=== PATIENT | male | born 1940 | race Caucasian/White ===

== ENCOUNTER 2019-11-23 15:23 | Emergency (ER) | payer OTHER, SELFPAY ==
[2019-11-23 15:24] VITALS: BP 151/94; PULSE 82; RESP 20; TEMP 36.8; O2SAT 97
--- NOTE | 2019-11-23 15:50 | ED.WOUNDLAC ---
HPI - Wound/Laceration General Chief Complaint: Wound/Laceration Stated Complaint: FINGER LAC Time Seen by Provider: 11/23/19 15:32 Source: patient Mode of arrival: ambulatory Limitations: no limitations History of Present Illness HPI narrative: This is a 78-year-old male that presents the emergency department for left middle finger laceration sustained just prior to arrival. Patient reports he accidentally cut the finger with a box maker paperboard. Reports he was having trouble getting the bleeding to stop. Denies decreased range of motion or numbness. Related Data Home Medications Medication Instructions Recorded Confirmed ascorbate calcium (vitamin C) 500 500 mg PO DAILY 08/06/19 mg tablet blood sugar diagnostic #10 each 08/06/19 ergocalciferol (vitamin D2) 1,250 50,000 unit PO WEEKLY 08/06/19 mcg (50,000 unit) capsule metoprolol succinate 25 mg 25 mg PO DAILY 08/06/19 tablet,extended release 24 hr mirabegron 25 mg tablet,extended 25 mg PO DAILY 08/06/19 release 24 hr omeprazole 40 mg capsule,delayed 40 mg PO DAILY 08/06/19 release amlodipine 5 mg PO DAILY 11/23/19 metoprolol succinate [Toprol XL] PO 11/23/19 Allergies Allergy/AdvReac Type Severity Reaction Status Date / Time Sulfa (Sulfonamide Allergy Unknown Vomiting Verified 11/23/19 15:32 Antibiotics) Review of Systems Review of Systems: Narrative: CONSTITUTIONAL: Denies fever SKIN: Reports laceration MUSCULOSKELETAL: Denies joint pain NEUROLOGIC: Denies numbness All systems reviewed & are unremarkable except as noted in HPI and below PMFSH Past Medical History Medical History (Updated 11/23/19 @ 15:54 by Do Kline PA-C) Dizziness Elevated TSH [place] Thrombocytopenia Family History Family History (Updated 02/26/14 @ 07:13 by DOCTOR UNKNOWN) Mother Family history of lung cancer 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 Smoking status: Former smoker Smoking end date: 07/02/79 Alcohol intake: never Exam Narrative: Exam Narrative: GENERAL: Well-appearing, well-nourished, and in no acute distress. HEAD: Normocephalic, atraumatic. EYES: EOMI. EXTREMITIES: Normal range of motion. No edema or obvious deformity. Left third finger dorsal surface of the distal phalanx with small (0.5cm) superficial laceration with bleeding controlled SKIN: Warm, dry, no rash. NEURO: No focal deficits. Alert and oriented x3. PSYCH: Normal mood and affect Course Vital Signs Vital signs: Vital Signs Temperature 98.2 F 11/23/19 15:24 Pulse Rate 82 11/23/19 15:24 Respiratory Rate 20 11/23/19 15:24 Blood Pressure 151/94 H 11/23/19 15:24 Pulse Oximetry 97 11/23/19 15:24 Temperature 98.2 F 11/23/19 15:24 Pulse Rate 82 11/23/19 15:24 Respiratory Rate 20 11/23/19 15:24 Blood Pressure 151/94 H 11/23/19 15:24 Pulse Oximetry 97 11/23/19 15:24 MDM - Wound/Laceration MDM Narrative Medical decision making narrative: Patient presents to the emergency department for laceration to the left third finger sustained just prior to arrival. Bleeding is under control. Laceration is very superficial and does not need any suturing. Patient was updated on tetanus. He was instructed on wound care. He is to follow-up with primary care doctor. He was given warnings to return the ER Critical Care Time Critical Care Time Critical Care Time: No Discharge Plan Discharge Clinical Impression: Laceration Patient Disposition: Home, Self-Care Condition: Stable Instructions: Laceration (ED) Additional Instructions: Return to the emergency department if you experience fever, redness and swelling of your wound, abnormal drainage from your wound, or any other symptoms that are concerning to you Clean the area with mild soap and water. Apply antibiotic ointment daily. Follow-up with your primary care doctor Prescriptions: No Action ergocalciferol (vitamin D2) [Vitamin D2] 1,250 mcg (50,000 unit) capsule
[2019-11-23] MEDS: TETANUS,DIPHTHERIA,AC PERTUSSIS ADULT (0.5 ML) BOOSTRIX IM (15:53)
== END 2019-11-23 16:06 | disposition home or self-care (01) ==
PROVIDERS: Emergency Provider Emergency Medicine; PCP Family Medicine
DX: S61.213A Laceration without foreign body of left middle finger without damage to nail, initial encounter (principal); Z87.891 Personal history of nicotine dependence; Z23 Encounter for immunization; W27.0XXA Contact with workbench tool, initial encounter
CPT/HCPCS: 90471; 90715; 99282

== ENCOUNTER 2020-07-27 17:38 | Emergency (ER) | payer OTHER, SELFPAY ==
--- NOTE | ~2020-07-27 | CT_ITS ---
EXAMINATION: CTA chest PE abdomen pel DATE: 07/27/2020 20:42 INDICATION: Shortness of breath. Abdominal pain, diarrhea. TECHNIQUE: Computed tomography (CT) of the chest and abdomen was performed with 100 cc Omnipaque 350 intravenous contrast. Automated exposure control and iterative reconstruction technique were employed . Exam dose: 2105.84 mGy-cm total exam DLP. COMPARISON: 07/27/2020 portable AP chest 04/10/2018 CT abdomen pelvis FINDINGS: There is diagnostic contrast enhancement of pulmonary arteries and no evidence of pulmonary embolism. No thoracic aortic aneurysm. No hilar or mediastinal mass lesion or lymphadenopathy. Cardiomegaly. No pericardial or pleural effusion. Patchy bilateral predominantly lower lobe and lingular basilar infiltrate and/or atelectasis. No hepatic, splenic, pancreatic, adrenal space-occupying mass lesion is evident. The gallbladder is p resent. Ultrasound would be more sensitive for detection of gallstones. No gallbladder wall thickenin g or pericholecystic fluid or fat stranding is present. No bile duct or pancreatic duct dilatation. T here are pancreatic calcifications, consistent with chronic pancreatitis. Bilateral renal cysts, largest on the left, measuring up to 7.4 cm approximately. 4.5 mm nonobstructing right renal calculus. 4.7 mm nonobstructing left renal calculus. 6.6 mm left re nal nonobstructing calculus. At least several additional smaller left nonobstructing renal calculi ar e noted. Approximately 3.5 mm distal left ureteral calculus without hydroureteronephrosis. No right ureteral c alculus or right-sided hydroureteronephrosis. The urinary bladder is unremarkable. There is atherosclerotic calcification of the abdominal aorta, celiac, superior mesenteric and renal arteries as well as iliac arteries. No abdominal aortic aneurysm. No intraperitoneal or retroperitone al or pelvic mass lesion or adenopathy or ascites. No bowel obstruction is evident. Normal appendix. No intraperitoneal free air. Small fat-containing inguinal hernias. Diffuse osteopenia. Bilateral hip osteoarthritis. Multilevel degenerative disease of the lumbar and lumbosacral spine. 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 Severe degenerative disc disease in the lower cervical spine. Thoracic kyphosis. Postoperative change from prostatectomy and bilateral pelvic sidewall lymph node resection. IMPRESSION: No evidence of pulmonary embolism Patchy bilateral lower lobe and lingular infiltrate and/or atelectasis Chronic pancreatitis Bilateral renal cysts 3.5 mm distal left ureteral calculus without significant hydroureteronephrosis Bilateral nonobstructive nephrolithiasis Status post prostatectomy and bilateral pelvic sidewall lymph node resection Reviewed, dictated and finalized at [facility]. Reviewed, dictated and finalized at [facility]. CABINETMAKER
--- NOTE | ~2020-07-27 | XR_ITS ---
XR chest 1V portable DATE: 07/27/2020 18:19 INDICATION: Fever, body aches. Dizziness. Falls. TECHNIQUE: Portable AP chest on 07/27/2020 at 1818 hours COMPARISON: 03/24/2019 portable AP chest at 1412 hours FINDINGS: Cardiomegaly, pulmonary vascular congestion and redistribution. There is prominence of the minor fissure aortic arch calcification. Consistent with subpleural edema. There are bilateral central and basilar infiltrate and/or atelectasis. Lumbar edema is suspected. Right glenohumeral joint replacement. Severe osteoarthritis of the left humeral joint. Diffuse osteop enia. IMPRESSION: Congestive heart failure Reviewed, dictated and finalized at location [facility]. 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
[2020-07-27 17:40] VITALS: BP 169/73; PULSE 120; RESP 20; TEMP 37.5; O2SAT 94
--- NOTE | 2020-07-27 18:04 | ECG_ITS ---
Measurements Intervals [place] Rate: 126 P: IN: 0 QRS: 3 QRSD: 104 T: 158 QT: 277 QTc: 401 Interpretive Statements ATRIAL FIBRILLATION WITH RAPID VENTRICULAR RESPONSE DELAYED PRECORDIAL R/S TRANSITION BORDERLINE ST-T WAVE ABNORMALITY- DIFFUSE LEADS BASELINE ARTIFACT- I, II, III, AVR, AVL, AVF, V1-V3 ABNORMAL ECG Electronically Signed On 07-27-2020 19:22:02 NURSE RN BSN by Jose Myers D.O.
[2020-07-27 18:08] VITALS: BP 137/79; PULSE 131; RESP 33; O2SAT 92
--- NOTE | 2020-07-27 18:17 | ED.GENADULT ---
HPI - General Adult General Chief complaint: Fever Stated complaint: fever, vomiting, diarrhea Time Seen by Provider: 07/27/20 17:57 Source: patient History of Present Illness HPI narrative: Patient is a 79 y/o male complaining of fever up to 101 since yesterday. He states that he took Tylenol, which helps with his fever. He has some cough, nausea and diarrhea. He does not have SOB. Related Data Home Medications Medication Instructions Recorded Confirmed ascorbate calcium (vitamin C) 500 500 mg PO DAILY 08/06/19 03/03/20 mg tablet blood sugar diagnostic #10 each 08/06/19 03/03/20 ergocalciferol (vitamin D2) 1,250 50,000 unit PO WEEKLY 08/06/19 03/03/20 mcg (50,000 unit) capsule mirabegron 25 mg tablet,extended 25 mg PO DAILY 08/06/19 03/03/20 release 24 hr omeprazole 40 mg capsule,delayed 40 mg PO DAILY 08/06/19 03/03/20 release metoprolol succinate [Toprol XL] PO 11/23/19 03/03/20 Allergies Allergy/AdvReac Type Severity Reaction Status Date / Time Sulfa (Sulfonamide Allergy Unknown Vomiting Verified 07/27/20 18:07 Antibiotics) Review of Systems Constitutional: Constitutional: Denies chills, Reports fever(s), Denies headache(s) and Denies weakness Eyes: Eyes: Denies blurry vision ENT: Denies headache(s) and Denies neck pain Cardiovascular: Cardiovascular: Denies chest pain and Denies dyspnea Respiratory: Respiratory: Reports cough and Denies dyspnea Gastrointestinal: Gastrointestinal: Denies abdominal pain, Reports diarrhea, Reports nausea and Denies vomiting Genitourinary: Genitourinary: Denies hematuria and Denies dysuria Musculoskeletal: Musculoskeletal: Denies back pain and Denies neck pain Neurologic: Denies headache(s) and Denies weakness PMFSH Past Medical History Medical History (Updated 07/28/20 @ 00:09 by Suasn Serrato MD) Dizziness Elevated TSH [place] Thrombocytopenia Family History Family History Mother Family history of lung cancer 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: Smoking status: Former smoker Tobacco type: cigarettes Second hand tobacco smoke exposure: No Smoking end date: 07/02/79 Alcohol intake: never Substance use: never Substance use type: does not use Gender identity (if verbalized by the patient): Male Exam Const: General: acute distress and ill appearing Nutritional Appearance: thin Orientation/consciousness: oriented to person, oriented to place, oriented to time and patient oriented x3 HENMT: Head: normocephalic Ears: external ears normal General nose exam: Normal external nose present Eyes: General: appearance normal, both eyes and all related structures Conjunctivae: conjunctivae normal Neck: Neck: normal visual inspection and full ROM Chest: Chest palpation & inspection: normal inspection of the chest and no tenderness Resp: Effort & Inspection: normal respiratory effort Auscultation: clear to auscultation bilaterally Cardio: Rate: tachycardic Rhythm: regular rhythm GI: GI Palp: No abdominal tenderness and Yes Soft to palpation Skin: General skin exam: normal color and turgor normal Neuro: General: oriented to person, oriented to place, oriented to time and patient oriented x3 Cognition (Neuro): normal cognition Extrem: General: normal to inspection, full ROM and no pedal edema Psych: Appearance: grossly normal Mental Status: mental status grossly normal Affect: normal affect Course Reevaluation(s) Reevaluation #1: Rechecked. Advised patient to be admitted for observation. Patient declines and wants to leave A. He is awake, alert and competent to make decision for himself. Date: 07/27/20 Time: 23:53 Vital Signs Vital signs: Vital Signs Temperature 37.5 C 07/27/20 17:40 Pulse Rate 120 H 07/27/20 17:40 Respiratory Rate 20 07/27/20 17:40 Blood Pressure 169/73 H 07/27
[2020-07-27 18:18] LABS: Hematocrit 44.7 % (42.0-52.0); Hemoglobin 15.3 g/dL (14.0-18.0); Mean Corpuscular HGB Conc 34.2 g/dl (32-36); Mean Corpuscular Hemoglobin 33.3 pg (26-34); Mean Corpuscular Volume 97.2 fl (80-100); Mean Platelet Volume 12.3 fl (7.4-10.4); Platelet Count Result 115 k/mm3 (150-375); Red Cell Distribution Width 14.4 % (11.5-14.5); White Blood Count 17.1 K/mm3 (4.5-10.0)
[2020-07-27 18:30] LABS: Alanine Aminotransferase 22 U/L (4-50); Albumin Level 4.1 g/dL (3.5-5.1); Alkaline Phosphatase 101 U/L (38-126); Anion Gap 8 mmol/L (8-16); Aspartate Amino Transferase 28 U/L (17-59); Bilirubin,Total 2.4 mg/dL (0.2-1.3); Blood Urea Nitrogen 17 mg/dL (9-20); Calcium 8.6 mg/dL (8.4-10.2); Carbon Dioxide 27 mmol/L (22-30); Chloride 101 mmol/L (98-107); Estimated CRCL calculation 84 ml/min; Estimated Glomerular Filt Rate > 60; Glucose 117 mg/dL (75-110); Lactic Acid Reflex 2.2 mmol/L (0.7-2.1); Sodium 136 mmol/L (137-145)
[2020-07-27 18:42] LABS: Band Neutrophils Percent 12 % (0-6); Lymphocytes Absolute Manual 0.34 K/mm3 (1.1-4.5); Monocytes Absolute Manual 0.68 K/mm3 (0.1-0.90); Monocytes Percent Manual 4 % (3-9); Neutrophils Absolute Manual 16.07 K/mm3 (1.3-6.7); Neutrophils Percent Manual 82 % (46-73); Platelet Estimate Decreased (Adequate); Total Cells Counted 100
--- NOTE | 2020-07-27 19:00 | PC.NURSE ---
Assumed care of pt. at this time. report from MARQUEZ Brewer
[2020-07-27 19:09] LABS: NT Pro B Type Natriuretic Pept 1370 PG/ML (5-100)
[2020-07-27 19:54] LABS: D Dimer 0.51 ug/mL (<0.48)
[2020-07-27 20:10] LABS: Add Urine Microscopic? YES; Appearance Urine Clear (Clear); Bilirubin Urine Negative (Negative); Blood Urine 1+ (Negative); Color Urine Yellow (Yellow); Glucose Urine UA Negative (Negative); Ketones Urine Negative (Negative); Leukocyte Esterase Ur Negative LEU/UL (Negative); Mucus Urine Rare /lpf; Nitrate Urine Negative (Negative); Protein Urine 2+ mg/dL (Negative); Specific Grav Ur 1.021 (1.001-1.035); Squamous Epithelial Cell Urine Rare /hpf (Few); Urobilinogen Urine Negative mg/dL (<2.0); WBC Urine 0-3 /hpf
[2020-07-27 20:40] VITALS: BP 149/96; PULSE 124; RESP 22; TEMP 36.8; O2SAT 100
[2020-07-27 21:16] LABS: Reflex Lactic Acid Yes or No Add Lactic
[2020-07-27 22:06] LABS: Lactic Acid 2.7 mmol/L (0.7-2.1)
[2020-07-27] MEDS: POTASSIUM CHLORIDE 20 MEQ TABLET PO (22:10)
[2020-07-27 22:17] VITALS: BP 130/94; PULSE 104; RESP 31; O2SAT 94
--- NOTE | 2020-07-27 23:04 | PC.NURSE ---
Updated Pt.'s [phone]
[2020-07-27 23:47] VITALS: BP 158/96; PULSE 105; RESP 14; O2SAT 94
[2020-07-28 14:05] LABS: SARS-CoV-2 RNA PCR Negative
== END 2020-07-27 23:55 | disposition left against medical advice (07) ==
PROVIDERS: Emergency Provider Emergency Medicine; PCP Family Medicine
DX: R50.9 Fever, unspecified (principal); R19.7 Diarrhea, unspecified; E87.2 Acidosis; Z20.822 Contact with and (suspected) exposure to COVID-19; Z87.891 Personal history of nicotine dependence; I48.91 Unspecified atrial fibrillation; R94.31 Abnormal electrocardiogram [ECG] [EKG]
CPT/HCPCS: 36415; 71045; 71275; 74177; 80053; 81001; 83605; 83880; 85025; 85380; 87040; 87147; 87186; 93005; 96360; 96361; 99284; A9270; C9803; Q9967; U0003; U0005

== ENCOUNTER 2020-07-28 17:20 | Inpatient (IN) | payer OTHER, SELFPAY ==
[2020-07-28] VITALS (18 sets, daily range): BP systolic 85–159; BP diastolic 64–131; PULSE 77–97; RESP 14–31; TEMP 36.2–36.8; O2SAT 87–100
--- NOTE | ~2020-07-28 | XR_ITS ---
EXAMINATION: XR abdomen/kub 1V DATE: 07/29/2020 08:25 INDICATION: Left ureteral stone. TECHNIQUE: A supine view of the abdomen on 2 radiographs was obtained. COMPARISON: CT abdomen and pelvis 07/28/2020 FINDINGS: There are no dilated loops of bowel. There are surgical clips in the pelvis. The kidneys ar e obscured by bowel. There is a 4 mm stone in right kidney. There is a 3 mm stone in left kidney. The re are vascular calcifications in the pelvis. There is a 3 mm stone in distal left ureter. IMPRESSION: 1. 3 mm stone in distal left ureter. 2. Bilateral kidney stones. Reviewed, dictated and finalized at location [facility]. ESS TIER
--- NOTE | ~2020-07-28 | CT_ITS ---
EXAMINATION: CT abdomen pelvis wo con DATE: 07/28/2020 18:25 INDICATION: Kidney stone TECHNIQUE: Computed tomography (CT) of the abdomen and pelvis was performed without intravenous contr ast. Automated exposure control and iterative reconstruction technique were employed. Exam dose: 105 2.36 mGy-cm total exam DLP. COMPARISON: 07/27/2020 CTA chest abdomen pelvis FINDINGS: There is infiltrate/atelectasis in the lung bases, is prominent at the left lower lobe. There is cardiomegaly. No pericardial or pleural effusion. Since 07/27/2020 there is pericholecystic fluid and/or stranding. Clinical correlation is advised. No bile duct or pancreatic duct dilatation. There are numerous pancreatic calcifications consistent with chronic pancreatitis. There is surface nodularity of the liver suggesting cirrhosis. Normal splenic size. Normal morphology of the adrenal glands. Bilateral renal cysts are demonstrated to better advantage on the 07/27/2020 CT abdomen pelvis examina tion with IV contrast material. Again noted is an approximately 4.5 mm right renal nonobstructing calculus and multiple nonobstructin g left renal calculi. No significant change in position of previously reported 3.5 mm There is interval mild free fluid collection in the dependent pelvis since 07/27/2020. Distal left ure teral calculus since 07/27/2020. Abdominal and iliac arterial calcifications as well as renal artery and celiac and superior mesenteri c artery calcification; no abdominal aortic aneurysm. Status post prostatectomy and bilateral pelvic sidewall lymph node resection. Fat-containing umbilical hernia. Small bilateral fat-containing inguinal hernias. IMPRESSION: No significant change in position of 3.5 mm left ureteral calculus and minimal if any le ft hydroureteronephrosis since 07/27/2020 Interval pericholecystic fluid and/or fat stranding and mild free fluid collection in the pelvis Chronic pancreatitis Cirrhosis of the liver Bilateral nonobstructive nephrolithiasis Bilateral renal cysts Cardiomegaly Bibasilar infiltrate and/atelectasis, most prominent in the left lower lobe Reviewed, dictated and finalized at [facility]. Reviewed, dictated and finalized at [facility]. 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
--- NOTE | ~2020-07-28 | XR_ITS ---
EXAMINATION: XR abdomen/kub 1V EXAM DATE: 07/30/2020 06:31 INDICATION: Left ureteral stone position. TECHNIQUE: Frontal projection(s) of the abdomen for interpretation. Comparison is made to prior exami nation from 07/29/2020. FINDINGS: Previously indicated and suspected left distal ureteral stone appears unchanged compared to yesterday. Surgical clips from pelvic lymph node dissection. There is advanced lumbar spondylosis. N onobstructive bowel gas pattern. IMPRESSION: Small left pelvic calcification unchanged could be ureteral stone. Reviewed, dictated and finalized at location [facility]. UCT SUPPORT ENGINEER
--- NOTE | ~2020-07-28 | XR_ITS ---
EXAMINATION: XR fluoroscopy no charge EXAM DATE: 07/30/2020 08:42 INDICATION: Left ureteral stone extraction. TECHNIQUE: Fluoroscopy used during XR fluoroscopy no charge performed by Dr. Alverto Boston MD. The DAP for this procedure was 351 radcm2 FINDINGS: Left ureter was cannulated, stone extraction. Correlate with procedure note. IMPRESSION: Fluoroscopy used during left ureteral stone extraction. Reviewed, dictated and finalized at location [facility]. S SUPPORT CONSULTANT
--- NOTE | 2020-07-28 17:37 | ECG_ITS ---
Measurements Intervals [place] Rate: 89 P: NE: 0 QRS: -8 QRSD: 89 T: -24 QT: 360 QTc: 438 Interpretive Statements ATRIAL FIBRILLATION CONSIDER INFERIOR INFARCT, AGE INDETERMINATE BASELINE ARTIFACT- I, II, AVR, AVL, AVF ABNORMAL ECG Electronically Signed On 07-28-2020 18:22:34 PATIENT PARTNER by Jose Myers D.O.
[2020-07-28 17:57] LABS: Basophils Percent Auto 0.3 % (0.2-1.2); Hematocrit 44.1 % (42.0-52.0); Hemoglobin 14.9 g/dL (14.0-18.0); Immature Granulocyte Absolute 0.06 K/mm3 (0.00-0.031); Immature Granulocyte Percent A 0.5 % (0-0.5); Lymphocytes Absolute Auto 0.63 K/mm3 (0.9-3.2); Lymphocytes Percent Auto 5.4 % (18.3-44.2); Mean Corpuscular HGB Conc 33.8 g/dl (32-36); Mean Corpuscular Hemoglobin 32.9 pg (26-34); Mean Corpuscular Volume 97.4 fl (80-100); Mean Platelet Volume 12.8 fl (7.4-10.4); Monocytes Absolute Auto 0.4 K/mm3 (0.1-0.6); Monocytes Percent Auto 3.3 % (2.6-8.5); Neutrophils Absolute Auto 10.6 K/mm3 (1.3-6.7); Neutrophils Percent Auto 90.5 % (45.5-73.1); Platelet Count Result 91 k/mm3 (150-375); Red Blood Count 4.53 M/mm3 (4.6-6.20); Red Cell Distribution Width 14.6 % (11.5-14.5); White Blood Count 11.8 K/mm3 (4.5-10.0)
[2020-07-28 18:08] LABS: INR 2.7; Prothrombin Time 29.2 Seconds (11.1-14.7)
[2020-07-28 18:09] LABS: Partial Thromboplastin Time 55.2 SECONDS (22.3-36.8)
[2020-07-28 18:14] LABS: Lactic Acid Reflex 1.4 mmol/L (0.7-2.1)
[2020-07-28 18:16] LABS: Alanine Aminotransferase 30 U/L (4-50); Albumin Level 3.9 g/dL (3.5-5.1); Alkaline Phosphatase 71 U/L (38-126); Anion Gap 4 mmol/L (8-16); Aspartate Amino Transferase 78 U/L (17-59); Bilirubin,Total 2.8 mg/dL (0.2-1.3); Blood Urea Nitrogen 21 mg/dL (9-20); Calcium 8.4 mg/dL (8.4-10.2); Carbon Dioxide 29 mmol/L (22-30); Chloride 102 mmol/L (98-107); Estimated CRCL calculation 75 ml/min; Estimated Glomerular Filt Rate > 60; Glucose 121 mg/dL (75-110); Lipase 26 U/L (23-300); Magnesium 1.4 mg/dL (1.6-2.3); Phosphorus 2.2 mg/dL (2.5-4.5); Potassium 3.7 mmol/L (3.4-5.0); Sodium 135 mmol/L (137-145)
--- NOTE | 2020-07-28 18:25 | ED.GENADULT ---
HPI - General Adult General Chief complaint: Recheck/Abnormal Lab/Rx <Maxwell Burns PA-C - Last Filed: 07/28/20 19:46> Stated complaint: abnormal labs per pcp <Maxwell Burns PA-C - Last Filed: 07/28/20 19:46> Time Seen by Provider: 07/28/20 17:29 <Maxwell Burns PA-C - Last Filed: 07/28/20 19:46> Source: patient, family, RN notes reviewed and old records reviewed <GONZÁLEZ Cedeno Last Filed: 07/28/20 19:46> Mode of arrival: ambulatory <GONZÁLEZ Cedeno Last Filed: 07/28/20 19:46> Limitations: no limitations <Maxwell Burns PA-C - Last Filed: 07/28/20 19:46> History of Present Illness HPI narrative: Patient is an 79-year-old male who presents to emergency department for evaluation of abnormal labs patient had had nausea vomiting diarrhea was seen in the emergency department yesterday evaluated advised to stay secondary to potential sepsis and other lab abnormalities patient notes that he decided to return per the request of his primary care doctor. Patient notes that the vomiting diarrhea have resolved he is no longer having fever. Patient on arrival denies any pain or other complaints. Patient had CTA of the chest abdomen pelvis yesterday coupled with blood work. <Maxwell Burns PA-C - Last Filed: 07/28/20 19:46> Related Data Home medications: Home Medications Medication Instructions Recorded Confirmed ascorbate calcium (vitamin C) 500 500 mg PO DAILY 08/06/19 07/28/20 mg tablet blood sugar diagnostic #10 each 08/06/19 07/28/20 ergocalciferol (vitamin D2) 1,250 50,000 unit PO DAILY 08/06/19 07/28/20 mcg (50,000 unit) capsule metoprolol succinate [Toprol XL] 100 mg PO DAILY 11/23/19 07/28/20 losartan-hydrochlorothiazide 1 tablet PO DAILY 07/28/20 07/28/20 metformin 500 mg PO DAILY 07/28/20 07/28/20 <GONZÁLEZ Cedeno Last Filed: 07/28/20 19:46> Allergies/adverse reactions: Allergies Allergy/AdvReac Type Severity Reaction Status Date / Time Sulfa (Sulfonamide Allergy Unknown Vomiting Verified 07/28/20 22:28 Antibiotics) <Maxwell Burns PA-C - Last Filed: 07/28/20 19:46> Review of Systems Review of Systems: All systems reviewed & are unremarkable except as noted in HPI and below <Maxwell Burns PA-C - Last Filed: 07/28/20 19:46> [facility] Past Medical History Medical History: Medical History (Updated 07/28/20 @ 19:45 by Maxwell Burns PA-C) Dizziness Elevated TSH [place] Thrombocytopenia Type 2 diabetes mellitus without complications Unspecified atrial fibrillation <Maxwell Burns PA-C - Last Filed: 07/28/20 19:46> Family History Family History: Family History (Updated 07/28/20 @ 22:21 by Ines Farley, RN) Mother Family history of lung cancer Sibling Lung cancer <Maxwell Burns PA-C - Last Filed: 07/28/20 19:46> 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: 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 (Updated 07/28/20 @ 22:21 by Ines Farley, RN) 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: Smoking status: Former smoker Tobacco type: cigarettes Second hand tobacco smoke exposure: No Smoking end date: 08/31/87 Alcohol intake: former Substance use: never Substance use type: does not use Living arrangements: with family Occupation/Education: retired Gender identity (if verbalized by the patient): Male Spiritual care concerns: No <Maxwell Burns PA-C - Last Filed: 07/28/20 19:46> Exam Narrative: Exam Narrative: GENERAL: Well-appearing, obese, and in no acute distress. HEAD: Normocephalic, atraumatic. EYES: PERRLA and EOMI. ENT: Nares clear, no rhinorrhea or epistaxis. Mucous membranes moist. NECK: Supple. No adenopathy or masses. No carotid bruits or JVD CHEST: Diminished on auscultation. No respiratory distress. Slight crackles in the lung bases HEART: Irregularly irregular rate and rhythm. No murmur heard. Normal peripheral pulses. ABDOMEN: Soft, nontender, nondistended EXTREMITIE
[2020-07-28 18:27] LABS: CRP 16.8 mg/dL (<1.0); NT Pro B Type Natriuretic Pept 2880 PG/ML (5-100); Troponin I 0.058 ng/mL (0.000-0.034)
[2020-07-28] MEDS: MAGNESIUM SULF 2 GM/WATER 50ML 2 GM/50 ML BAG IVPB (18:50)
[2020-07-28] MEDS: FUROSEMIDE INJ 40 MG/4 ML VIAL IV PUSH (18:50)
[2020-07-28 21:13] LABS: Troponin I 0.038 ng/mL (0.000-0.034)
--- NOTE | 2020-07-28 22:00 | ADMGEN ---
This patient, Todd Roe, was admitted to 3 Medical Room 340-01. Patient/family oriented to hospital policies and general routines including ID bracelet, bed and alarms, visiting hours, pain management, procedures, bathroom and other care routines, personal items, smoking policy, room service/diet, and visiting hours. Information on how to activate the Rapid Response Team has been discussed. Patient/Family are encouraged to report perceived risks to care and to ask questions if they do not understand what they are told or what they should do.
[2020-07-28] MEDS: FAMOTIDINE 20 MG/2 ML VIAL IV PUSH (23:34)
[2020-07-28 23:39] LABS: Glucose Point of Care 161 (65-105)
[2020-07-29] VITALS (10 sets, daily range): BP systolic 129–152; BP diastolic 72–92; PULSE 84–120; RESP 16–18; TEMP 36.2–36.8; O2SAT 91–95
--- NOTE | 2020-07-29 | ECHO_ITS ---
Patient Info Name: Todd Pino Sample Age: 79 years : 1940 Gender: Male Ht: 74 in Wt: 234 lbs BSA: 2.38 m2 HR: 113 bpm BP: 150 / 88 mmHg Heart Rhythm: Atrial Fibrillation Technical Quality: Good Exam Date: 07/29/2020 9:17 AM Exam Location: [facility] Patient Status: Inpatient Admit Date: 07/28/2020 Staff Ordering Physician: Sharan Schulz MD Firer Low Pressure: Asad Garcia, CITLALY, RT Attending Provider: Cristina Bates MD Referring Physician: Jazz FRANK; Exam Type: CA echo dop color flow w con Study Info Indications I48.1 - Persistent atrial fibrillation Complete two-dimensional, color flow and Doppler transthoracic echocardiogram is performed with contrast to opacify the left ventricle and to improve the deliniation of the left ventricle endocardial borders. Summary 1. Left ventricular chamber dimension is normal. 2. Definity contrast administered improved wall motion interpretation. 3. Left ventricular systolic function is normal, estimated at 60-65%. 4. There is mildly increased left ventricular wall thickness. 5. The left ventricular diastolic function is normal. 6. E/e' 7 is not elevated. 7. Atrial fibrillation. 8. Left atrial chamber dimension is severely enlarged. 9. Right atrial chamber dimension is severely enlarged. 10. There is mild aortic valve sclerosis. 11. The mitral valve has mildly calcified annulus. 12. No pulmonary hypertension, estimated pulmonary arterial systolic pressure is 35 mmHg. Left Ventricle Atrial fibrillation. E/e' 7 is not elevated. Definity contrast administered improved wall motion interpretation. Left ventricular chamber dimension is normal. Left ventricular systolic function is normal, estimated at 60-65%. There is mildly increased left ventricular wall thickness. The left ventricular diastolic function is normal. Right Ventricle Right ventricular systolic function is normal with normal TAPSE 1.7 cm. Right ventricular chamber dimension is normal. Left Atria Left atrial chamber dimension is severely enlarged. Right Atria Right atrial chamber dimension is severely enlarged. Aortic Valve The aortic valve is trileaflet. There is mild aortic valve sclerosis. There is no aortic valve stenosis. There is no aortic valve regurgitation. Pulmonic Valve There is no pulmonic regurgitation. Mitral Valve The mitral valve has mildly calcified annulus. There is no mitral valve stenosis. There is no mitral valve regurgitation. Tricuspid Valve There is no tricuspid valve regurgitation. No pulmonary hypertension, estimated pulmonary arterial systolic pressure is 35 mmHg. Pericardium/Pleural There is no pericardial effusion. Inferior Vena Cava Normal inferior vena cava with >50% collapse upon inspiration consistent with normal right atrial pressure, 5 mmHg. Aorta The aortic root size at the sinus of Valsalva is normal. Left Ventricular Outflow Tract Name Value Normal LVOT 2D LVOT Diameter 2.28 cm LVOT Doppler LVOT Peak Velocity 76.64 cm/s LVOT Peak Gradient 2 mmHg LVOT
[2020-07-29 01:07] LABS: Troponin I 0.055 ng/mL (0.000-0.034)
[2020-07-29 06:12] LABS: Basophils Percent Auto 0.2 % (0.2-1.2); Eosinophils Percent Auto 0.1 % (0-4.4); Hemoglobin 14.1 g/dL (14.0-18.0); Immature Granulocyte Absolute 0.05 K/mm3 (0.00-0.031); Immature Granulocyte Percent A 0.6 % (0-0.5); Lymphocytes Absolute Auto 0.52 K/mm3 (0.9-3.2); Lymphocytes Percent Auto 5.9 % (18.3-44.2); Mean Corpuscular HGB Conc 33.6 g/dl (32-36); Mean Corpuscular Hemoglobin 32.6 pg (26-34); Mean Platelet Volume 12.3 fl (7.4-10.4); Monocytes Absolute Auto 0.5 K/mm3 (0.1-0.6); Monocytes Percent Auto 5.1 % (2.6-8.5); Neutrophils Absolute Auto 7.8 K/mm3 (1.3-6.7); Neutrophils Percent Auto 88.1 % (45.5-73.1); Platelet Count Result 91 k/mm3 (150-375); Red Blood Count 4.33 M/mm3 (4.6-6.20); Red Cell Distribution Width 14.7 % (11.5-14.5); White Blood Count 8.8 K/mm3 (4.5-10.0)
[2020-07-29 06:26] LABS: Alanine Aminotransferase 33 U/L (4-50); Albumin Level 3.7 g/dL (3.5-5.1); Alkaline Phosphatase 69 U/L (38-126); Anion Gap 2 mmol/L (8-16); Aspartate Amino Transferase 73 U/L (17-59); Blood Urea Nitrogen 20 mg/dL (9-20); Carbon Dioxide 34 mmol/L (22-30); Chloride 98 mmol/L (98-107); Estimated CRCL calculation 61 ml/min; Estimated Glomerular Filt Rate > 60; Glucose 110 mg/dL (75-110); Lipase 36 U/L (23-300); Potassium 3.4 mmol/L (3.4-5.0); Sodium 134 mmol/L (137-145)
--- NOTE | 2020-07-29 06:48 | WPDURCON ---
Assessment and Plan Assessment and plan (1) Left ureteral calculus: Code(s): N20.1 - Calculus of ureter Status: Acute Assessment and Plan: Small, minimally obstructing/minimally symptomatic left distal ureteral stone. Discussed with pt. - he'd prefer a day to try and pass this. I have him scheduled for 829 morning, if stone hasn't passed and he's medically fit. So, he can eat/drink today. Urology Consult Note HPI Date Seen: 07/29/20 Requesting Physician: Cristina Bates MD Primary Care Provider: Kofi Masterson MD Consult Narrative Narrative: Todd Roe is a 79 year old male who is known to our practice, having undergone a robotic prostatectomy in the remote past by Dr. Sandhu. He has been in the ER at [facility] twice last 36 hours. On the night of 07/27 he presented with reports of fever and diarrhea. Imaging at that time revealed a minimally obstructing 3 mm left distal ureteral calculus. He had a picture of the infection but refused admission and left against medical advice. Then re-presented last night after having been instructed by his primary care physician to back for further evaluation. Throughout this time he has no flank or abdominal pain suggestive of ureteral colic. He has been afebrile throughout this admissionHe has no prior history of urolithiasis. Review of Systems Cardiovascular: Cardiovascular: Denies chest pain, Denies lightheadedness, Denies palpitations and Denies dyspnea Respiratory: Respiratory: Denies dyspnea Gastrointestinal: Gastrointestinal: Denies diarrhea, Denies nausea and Denies vomiting Genitourinary: Genitourinary: Denies hematuria and Denies dysuria Endocrine: Endocrine: Denies palpitations PMFSH Past Medical History Medical History Dizziness Elevated TSH [place] Thrombocytopenia Type 2 diabetes mellitus without complications Unspecified atrial fibrillation Family History Family History Mother Family history of lung cancer Sibling Lung cancer 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: Smoking status: Former smoker Tobacco type: cigarettes Second hand tobacco smoke exposure: No Smoking end date: 08/31/87 Alcohol intake: former Substance use: never Substance use type: does not use Living arrangements: with family Occupation/Education: retired Gender identity (if verbalized by the patient): Male Spiritual care concerns: No Meds Home Medications and Allergies Home Medications Medication Instructions Recorded Confirmed Type ascorbate calcium (vitamin C) 500 500 mg PO DAILY 08/06/19 07/28/20 History mg tablet blood sugar diagnostic #10 each 08/06/19 07/28/20 History ergocalciferol (vitamin D2) 1,250 50,000 unit PO DAILY 08/06/19 07/28/20 History mcg (50,000 unit) capsule metoprolol succinate [Toprol XL] 100 mg PO DAILY 11/23/19 07/28/20 History amlodipine 5 mg tablet 5 mg PO DAILY #90 tablet 07/12/20 07/28/20 Rx warfarin 5 mg tablet 5 mg PO DAILY #90 tablet 07/12/20 07/28/20 Rx losartan-hydrochlorothiazide 1 tablet PO DAILY 07/28/20 07/28/20 History metformin 500 mg PO DAILY 07/28/20 07/28/20 History Allergies Allergy/AdvReac Type Severity Reaction Status Date / Time Sulfa (Sulfonamide Allergy Unknown Vomiting Verified 07/28/20 22:28 Antibiotics) Vital Signs Vital Signs - 24 hr 07/28/20 17:42 07/28/20 18:03 07/28/20 18:16 Temperature 97.2 F L Pulse Rate 87 92 Respiratory Rate 17 28 H Blood Pressure 141/83 H 117/101 H Pulse Oximetry 95 87 L 07/28/20 18:21 07/28/20 18:22 07/28/20 18:29 Temperature Pulse Rate 88 90 Respiratory Rate 20 Blood Pressure Pulse Oximetry 88 L 94 92 07/28/20 18:30 07/28/20 18:45 07/28/20 18:48 Temperature Pulse Rate 97 89 92 Respira
[2020-07-29 07:56] LABS: Glucose Point of Care 101 (65-105)
[2020-07-29] MEDS: POTASSIUM CHLORIDE 20 MEQ TABLET 40 MEQ PO (08:58)
[2020-07-29] MEDS: PERFLUTREN LIPID MICROSPHERES 1.5 ML VIAL DILUTED TO 10 ML TOTAL VOLUME IV PUSH (09:43)
[2020-07-29] MEDS: ASCORBIC ACID 500 MG TABLET PO (09:46)
[2020-07-29] MEDS: FAMOTIDINE 20 MG/2 ML VIAL IV PUSH ×2 (09:46→20:10)
[2020-07-29] MEDS: metFORMIN HCL XR 500 MG TAB.SR.24H PO (09:46)
[2020-07-29] MEDS: METOPROLOL SUCCINATE EXT REL 100 MG TABCR PO (09:47)
[2020-07-29] MEDS: amLODIPine BESYLATE 5 MG TABLET PO (09:49)
[2020-07-29] MEDS: hydroCHLOROthiazide 25 MG TABLET PO (09:50)
[2020-07-29] MEDS: LOSARTAN POTASSIUM 100 MG TABLET PO (09:50)
--- NOTE | 2020-07-29 10:58 | PC.NURSE ---
Addendum entered by Meri Espinoza RN 07/29/20 11:05: Vitamin D3. Original Note: Patient , Joe, on telephone reading from Patient s vitamin D pill bottle. She voiced that he takes vitamin D one pill orally daily, 50 mcg.
[2020-07-29 12:19] LABS: Glucose Point of Care 117 (65-105)
--- NOTE | 2020-07-29 12:33 | PM.IMHP ---
H&P: HPI History of Present Illness Date/Time: 07/29/20 12:33 Chief Complaint: Cough and have normal lab tests Narrative: Date of visit 07/29/20 1030 Todd Roe is a 79 year old male with hypertension, type 2 diabetes, chronic AFib on anticoagulation was originally seen in the emergency room on and encouraged to stay but left against medical advice.. When blood work was seen by primary care physician especially the positive blood cultures she was encouraged to return back to emergency room for evaluation and eventually admitted.. On his 1st presentation on the 19/12 he had nausea some vomiting with diarrhea and fever. Yesterday in ER the GI symptoms had resolved and CTA revealed so pulmonary infiltrates and left mid ureteral stone. He has had kidney stones in the past and has not experienced a pain with of present illness. Has had some cough though not severe Review of Systems Review of Systems: Narrative: Constitutional weight is steady appetite good prior to present illness Eyes no double vision or scotoma Mouth no pharyngitis laryngitis Pulmonary no noticeable increased shortness of breath, just a cough CV heart rate below faster with no murmurs GI diarrhea has subsided no melena or hematochezia stream a little slow Muscle skeletal no particular joint discomfort Integument no skin breakdown rashes Neuropsych no seizures no syncope PMFSH Past Medical History Medical History (Updated 07/29/20 @ 12:50 by Sharan Schulz MD) Dizziness Elevated TSH [place] Thrombocytopenia Type 2 diabetes mellitus without complications Unspecified atrial fibrillation Surgical History Surgical History (Updated 07/29/20 @ 12:43 by Sharan Schulz MD) H/O parathyroidectomy H/O radical prostatectomy History of bilateral knee replacement History of right shoulder replacement Family History Family History Mother Family history of lung cancer Sibling Lung cancer 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 (Updated 07/29/20 @ 12:45 by Sharan Schulz MD) 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: , 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 Smoking status: Former smoker Tobacco type: cigarettes Second hand tobacco smoke exposure: No Smoking end date: 08/31/87 Alcohol intake: former Substance use: never Substance use type: does not use Living arrangements: with family Occupation/Education: retired Gender identity (if verbalized by the patient): Male Spiritual care concerns: No Meds Home Medications and Allergies Home Medications Medication Instructions Recorded Confirmed Type ascorbate calcium (vitamin C) 500 500 mg PO DAILY 08/06/19 07/28/20 History mg tablet blood sugar diagnostic #10 each 08/06/19 07/28/20 History metoprolol succinate [Toprol XL] 100 mg PO DAILY 11/23/19 07/28/20 History amlodipine 5 mg tablet 5 mg PO DAILY #90 tablet 07/12/20 07/28/20 Rx warfarin 5 mg tablet 5 mg PO DAILY #90 tablet 07/12/20 07/28/20 Rx losartan-hydrochlorothiazide 1 tablet PO DAILY 07/28/20 07/28/20 History metformin 500 mg PO DAILY 07/28/20 07/28/20 History Vitamin D3 50 mcg PO DAILY 07/29/20 07/29/20 History cholecalciferol (vitamin D3) 50 mcg PO DAILY 07/29/20 07/29/20 History [Vitamin D3] Allergies Allergy/AdvReac Type Severity Reaction Status Date / Time Sulfa (Sulfonamide Allergy Unknown Vomiting Verified 07/28/20 22:28 Antibiotics) Vital Signs Vital Signs - 24 hr 07/28/20 17:42 07/28/20 18:03 07/28/20 18:16 Temperature 36.2 C L Pulse Rate 87 92 Respiratory Rate 17 28 H Blood Pressure 141/83 H 117/101 H Pulse Oximetry 95 87 L 07/28/20 18:21 07/28/20 18:22 07/28/20 18:29 Temperature Pulse Rate 88 90 Respiratory Rate 20 Blood Pressure Pulse Oximetry 88 L 94 92 07/28/20 18:30 07/28/20 18:45 07/28/20 18:48 Temperature Pulse Rate 97 89 92 Respiratory Rate 26 H 29 H 25 H Blood Pressure 144/101 H 85/64 L Pulse Oxim
--- NOTE | 2020-07-29 14:39 | WPDANESEPPF ---
Anes - Initial Pre Proc Eval Procedure: Operation Date: 07/30/20 08:30 Proposed Procedures p Cystoscopy, Left Ureteroscopy, Stone Extraction(Left) - Alverto Bsoton MD Date/Time: 07/29/20 14:39 Surgeon: Cristina Bates MD Pre Op Diagnosis: elevated troponin, heart failure, pneumonia, Patient Data Age: 79 Gender: M Height: 1.88 m Weight: 106.5 kg Last Vital Signs Temp 36.5 C 07/29/20 13:06 Pulse 104 H 07/29/20 13:06 Resp 18 07/29/20 13:06 BP 152/90 H 07/29/20 13:06 Pulse Ox 95 07/29/20 13:06 Allergies Allergy/AdvReac Type Severity Reaction Status Date / Time Sulfa (Sulfonamide Allergy Unknown Vomiting Verified 07/28/20 22:28 Antibiotics) Home Medications Medication Instructions Recorded Confirmed Type ascorbate calcium (vitamin C) 500 500 mg PO DAILY 08/06/19 07/28/20 History mg tablet blood sugar diagnostic #10 each 08/06/19 07/28/20 History metoprolol succinate [Toprol XL] 100 mg PO DAILY 11/23/19 07/28/20 History amlodipine 5 mg tablet 5 mg PO DAILY #90 tablet 07/12/20 07/28/20 Rx warfarin 5 mg tablet 5 mg PO DAILY #90 tablet 07/12/20 07/28/20 Rx losartan-hydrochlorothiazide 1 tablet PO DAILY 07/28/20 07/28/20 History metformin 500 mg PO DAILY 07/28/20 07/28/20 History Vitamin D3 50 mcg PO DAILY 07/29/20 07/29/20 History cholecalciferol (vitamin D3) 50 mcg PO DAILY 07/29/20 07/29/20 History [Vitamin D3] Laboratory Tests 07/28/20 07/28/20 07/28/20 17:47 17:47 17:47 WBC 11.8 K/mm3 H K/mm3 (4.5-10.0) RBC 4.53 M/mm3 L M/mm3 (4.6-6.20) Hgb 14.9 g/dL g/dL (14.0-18.0) Hct 44.1 % % (42.0-52.0) MCV 97.4 fl fl (80-100) MCH 32.9 pg pg (26-34) MCHC 33.8 g/dl g/dl (32-36) RDW 14.6 % H % (11.5-14.5) Plt Count 91 k/mm3 L k/mm3 (150-375) MPV 12.8 fl H fl (7.4-10.4) Immature Gran % (Auto) 0.5 % % (0-0.5) Neut % (Auto) 90.5 % H % (45.5-73.1) Lymph % (Auto) 5.4 % L % (18.3-44.2) Jay % (Auto) 3.3 % % (2.6-8.5) Eos % (Auto) 0.0 % % (0-4.4) Baso % (Auto) 0.3 % % (0.2-1.2) Lymph # (Auto) 0.63 K/mm3 L K/mm3 (0.9-3.2) Jay # (Auto) 0.4 K/mm3 K/mm3 (0.1-0.6) Eos # (Auto) 0.0 K/mm3 K/mm3 (0-0.3) Baso # (Auto) 0.0 K/mm3 K/mm3 (0.0-0.1) Abs Immat Gran (auto) 0.06 K/mm3 H K/mm3 (0.00-0.031) Absolute Neuts (auto) 10.6 K/mm3 H K/mm3 (1.3-6.7) Absolute Nucleated RBC 0.0 K/mm3 K/mm3 (0.0-0.012) Nucleated RBC % 0.0 % % (0.0-0.2) PT 29.2 Seconds H Seconds (11.1-14.7) INR 2.7 APTT 55.2 SECONDS H SECONDS (22.3-36.8) Sodium 135 mmol/L L mmol/L (137-145) Potassium 3.7 mmol/L mmol/L (3.4-5.0) Chloride 102 mmol/L mmol/L (98-107) Carbon Dioxide 29 mmol/L mmol/L (22-30) Anion Gap 4 mmol/L L mmol/L (8-16) BUN 21 mg/dL H mg/dL (9-20) Creatinine 0.80 mg/dL mg/dL (0.7-1.3) Estim Creat Clear Calc 75 ml/min ml/min Estimated GFR > 60 (59 - ) Glucose 121 mg/dL H mg/dL (75-110) POC Capillary Glucose Lactic Acid Calcium 8.4 mg/dL mg/dL (8.4-10.2) Phosphorus 2.2 mg/dL L mg/dL (2.5-4.5) Magnesium 1.4 mg/dL L mg/dL (1.6-2.3) Total Bilirubin 2.8 mg/dL H mg/dL (0.2-1.3) AST 78 U/L H U/L (17-59) ALT 30 U/L U/L (4-50) Alkaline Phosphatase 71 U/L U/L (38-126) Troponin I 0.058 ng/mL H* ng/mL (0.000-0.034) C-Reactive Protein 16.8 mg/dL H mg/dL (<1.0) NT-Pro-B Natriuret Pep 2880 PG/ML H PG/ML (5-100) Total Protein 7.0 g/dL g/dL (6.3-8.2) Albumin 3.9 g/dL g/dL (3.5-5.1) Lipase 26 U/L U/L (23-300) 07/28/20
[2020-07-29 17:02] LABS: Glucose Point of Care 127 (65-105)
[2020-07-29] MEDS: WARFARIN (*PBKC) 5 MG TABLET PO (17:34)
[2020-07-29 20:17] LABS: Glucose Point of Care 138 (65-105)
[2020-07-30] VITALS (16 sets, daily range): BP systolic 123–148; BP diastolic 77–90; PULSE 67–93; RESP 14–26; TEMP 35.9–37.1; O2SAT 93–98
[2020-07-30 05:35] LABS: Basophils Percent Auto 0.3 % (0.2-1.2); Eosinophils Absolute Auto 0.1 K/mm3 (0-0.3); Eosinophils Percent Auto 1.2 % (0-4.4); Hematocrit 43.9 % (42.0-52.0); Hemoglobin 14.8 g/dL (14.0-18.0); Immature Granulocyte Absolute 0.03 K/mm3 (0.00-0.031); Immature Granulocyte Percent A 0.4 % (0-0.5); Lymphocytes Absolute Auto 1.11 K/mm3 (0.9-3.2); Lymphocytes Percent Auto 14.9 % (18.3-44.2); Mean Corpuscular HGB Conc 33.7 g/dl (32-36); Mean Corpuscular Volume 97.8 fl (80-100); Mean Platelet Volume 12.7 fl (7.4-10.4); Monocytes Absolute Auto 0.7 K/mm3 (0.1-0.6); Monocytes Percent Auto 8.7 % (2.6-8.5); Neutrophils Absolute Auto 5.6 K/mm3 (1.3-6.7); Neutrophils Percent Auto 74.5 % (45.5-73.1); Platelet Count Result 100 k/mm3 (150-375); Red Blood Count 4.49 M/mm3 (4.6-6.20); Red Cell Distribution Width 14.6 % (11.5-14.5); White Blood Count 7.5 K/mm3 (4.5-10.0)
[2020-07-30 05:47] LABS: Anion Gap 4 mmol/L (8-16); Blood Urea Nitrogen 23 mg/dL (9-20); Calcium 8.1 mg/dL (8.4-10.2); Carbon Dioxide 33 mmol/L (22-30); Chloride 99 mmol/L (98-107); Estimated CRCL calculation 67 ml/min; Estimated Glomerular Filt Rate > 60; Glucose 121 mg/dL (75-110); Potassium 3.2 mmol/L (3.4-5.0); Sodium 136 mmol/L (137-145)
[2020-07-30] MEDS: LACTATED RINGERS 1,000 ML 30 ML IV CONT (07:39)
--- NOTE | 2020-07-30 08:07 | WPDHPUPDATE1 ---
History and Physical Update Update Date/Time: 07/30/20 08:07 KUB: persistent stone in distal left ureter. Will plan cystoscopy with left ureteroscopy and stone extraction. History and Physical has been reviewed, including an updated exam of the patient. There are NO changes in the patient's condition. Risks, benefits, and alternatives have been discussed and questions answered. Patient agrees to proceed with procedure.
[2020-07-30] MEDS: LIDOCAINE HCL 2% GEL UROJET 10 ML PKG MUCOUS MEM (08:25)
--- NOTE | 2020-07-30 08:36 | PM.PROC ---
Procedure Note - Detailed Date of procedure: 07/30/20 Pre-op diagnosis: elevated troponin, heart failure, pneumonia, Post-op diagnosis: same Procedure performed: Cystoscopy, left ureteroscopy with stone extraction Description of procedure: The patient was brought to the operative suite where he is prepped and draped in a routine sterile fashion while in the dorsal lithotomy position after the uneventful induction of a general LMA anesthetic. A 19F rigid cystoscope was placed in the bladder. There are no urethral strictures. His prostatic urethra measures, approximately, 2.0cm with no median lobe enlargement. The bladder mucosa was endoscopically normal without hyperemia or neoplasm. There was a single, orthotopic ureteral orifice bilaterally. A 0.035 glidewire was advanced into the left renal pelvis under fluoroscopy. The distal ureter was dilated with an 8F/10F ureteral dilator. Ureteroscopy was undertaken with a short, tapered, semi-rigid ureteroscope and the stone was extracted with ease using a 1.9F Escape disposable stone basket. Due to the ease of this manipulation I opted not to place a ureteral stent. The patient's bladder was emptied and was taken to the recovery room having tolerated this procedure well. From my standpoint, patient can be discharge anytime. Should f/u with us in 2-3 weeks. Anesthesia: GLMA Surgeon: Alverto Boston MD Estimated blood loss (mL): 0 Drains: No Packing: No Pathology: yes (Left ureteral stone) Complications: No immediate complications Condition: stable Disposition: PACU
[2020-07-30 09:17] LABS: Glucose Point of Care 139 (65-105)
--- NOTE | 2020-07-30 09:18 | SUR.PHASEI ---
faxed report to floor RN
[2020-07-30] MEDS: POTASSIUM CHLORIDE 20 MEQ TABLET 40 MEQ PO ×2 (10:59→17:16)
[2020-07-30] MEDS: hydroCHLOROthiazide 25 MG TABLET PO (10:59)
[2020-07-30] MEDS: FAMOTIDINE 20 MG/2 ML VIAL IV PUSH ×2 (10:59→20:05)
[2020-07-30] MEDS: METOPROLOL SUCCINATE EXT REL 100 MG TABCR PO (11:00)
[2020-07-30] MEDS: amLODIPine BESYLATE 5 MG TABLET PO (11:00)
[2020-07-30] MEDS: ASCORBIC ACID 500 MG TABLET PO (11:00)
[2020-07-30] MEDS: LOSARTAN POTASSIUM 100 MG TABLET PO (11:00)
[2020-07-30 11:57] LABS: Glucose Point of Care 140 (65-105)
[2020-07-30] MEDS: PROCHLORPERAZINE EDISYLATE 10 MG/2 ML VIAL IV PUSH (12:08)
[2020-07-30] MEDS: ACETAMINOPHEN 325 MG TABLET 650 MG PO (12:16)
--- NOTE | 2020-07-30 16:18 | PM.CNCAR ---
Assessment and Plan Assessment and plan (1) Essential hypertension: Code(s): I10 - Essential (primary) hypertension Status: Acute Assessment and Plan: Stable. (2) Unspecified atrial fibrillation: Code(s): I48.91 - Unspecified atrial fibrillation Status: Acute Assessment and Plan: Rate controlled and on warfarin to keep INR 2-3. INR 2.7. (3) Bacteremia: Code(s): R78.81 - Bacteremia Status: Acute Assessment and Plan: On antibiotics. Seen by ID with Dr. Shaw. No need for NASIR as TTE has quality images of valves without any vegetation seen. Will sign off. Please call with questions or change in status. History of Present Illness History of Present Illness Consult date/time: 07/30/20 16:18 Reason for consult: Consider NASIR for bacteremia. 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 He has a history of chronic atrial fibrillation on warfarin, DM, hypertension. He had blood drawn previously that showed bacteremia and his PCP advised him to go to hospital management. He reports fevers, nausea/vomiting, flank pain. It was found on CT chest/abd that he had bilateral nephrolithiasis with hydronephrosis. He had left ureteral stone extraction today. He is complaining of flank pain and nausea/vomiting. Denies chest pain, sob. Blood cultures grew Group G strep in 4/4 bottles. I reviewed his transthoracic echo done yesterday and valves were clearly seen and no evidence of vegetation. Reason For Visit: elevated troponin, heart failure, pneumonia, Review of Systems Review of Systems: All systems reviewed & are unremarkable except as noted in HPI and below Constitutional: Constitutional: Reports as per HPI, Denies chills and Reports fatigue Cardiovascular: Cardiovascular: Reports as per HPI, Denies chest pain, Denies lightheadedness and Denies dyspnea Respiratory: Respiratory: Reports as per HPI and Denies dyspnea Gastrointestinal: Gastrointestinal: Reports as per HPI, Reports abdominal pain, Reports diarrhea, Reports nausea and Reports vomiting Genitourinary: Genitourinary: Reports as per HPI and Reports flank pain Musculoskeletal: Musculoskeletal: Reports as per HPI Neurologic: Reports as per HPI, Denies dizziness and Denies syncope [facility] Past Medical History Medical History (Updated 07/30/20 @ 16:25 by Jose M. 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 Primary hyperthyroidism Pulmonary HTN Thrombocytopenia Thyroid mass Type 2 diabetes mellitus without complications Unspecified atrial fibrillation Surgical History Surgical History (Updated 07/29/20 @ 12:43 by Sharan Schulz MD) H/O parathyroidectomy H/O radical prostatectomy History of bilateral knee replacement History of right shoulder replacement Family History Family History Mother Family history of lung cancer Sibling Lung cancer 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 (Updated 07/29/20 @ 12:45 by Sharan Schulz MD) 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: , retired [employer] Smoking status: Former smoker Tobacco type: cigarettes Second hand tobacco smoke exposure: No Smoking end date: 08/31/87 Alcohol intake: former Substance use: never Substance use type: does not use Living arrangements: with family Occupation/Education: retired Gender identity (if verbalized by the patient): Male Spiritual care concerns: No Meds Home Medications and Allergies Home Medications Medication Instructions Recorded Confirmed Type ascorbate calcium (vitamin C) 500 500 mg PO DAILY 08/06/19 07/28/20 History mg tablet blood sugar diagnostic #10 each 08/06/19 07/28/20 History metoprolol succinate [Toprol XL] 100 m
--- NOTE | 2020-07-30 16:29 | PM.IMPN ---
Progress Note: A&P Assessment and Plan (1) Sepsis: Code(s): A41.9 - Sepsis, unspecified organism Status: Acute Assessment and Plan: As per tachycardia and leukocytosis. Blood cultures positive growing Streptococcus G Change to penicillin G4 million units Q 4, transthoracic echo no vegetation. Id opinion and will probably need NASIR (2) Pneumonia: Code(s): J18.9 - Pneumonia, unspecified organism Status: Acute Assessment and Plan: Pneumonia on imaging and physical exam with positive blood cultures. Continue O2 2 L nasal cannula and antibiotics (3) Thrombocytopenia: Code(s): D69.6 - Thrombocytopenia, unspecified Status: Acute Assessment and Plan: Suspect secondary to septic picture continue to monitor stable at 100 K (4) Unspecified atrial fibrillation: Code(s): I48.91 - Unspecified atrial fibrillation Status: Acute Assessment and Plan: Ventricular response toward the high side with the septic picture. Continue beta-satya and anticoagulation with INR 2.7 07/29, recheck in a.m. (5) Essential hypertension: Code(s): I10 - Essential (primary) hypertension Status: Acute Assessment and Plan: Blood pressure stable continue amlodipine and losartan hydrochlorothiazide with the beta-satya (6) Kidney stone on left side: Code(s): N20.0 - Calculus of kidney Status: Acute Assessment and Plan: Extracted today in OR with cystoscopy (7) Diabetes mellitus: Code(s): E11.9 - Type 2 diabetes mellitus without complications Status: Acute Assessment and Plan: Sliding scale while here and hold metformin (8) DVT prophylaxis: Code(s): Z29.9 - Encounter for prophylactic measures, unspecified Status: Acute Assessment and Plan: Warfarin Subjective Date/time seen: 07/30/20 16:29 Interval history: Date of visit 07/30/2020 79-year-old male admitted with sepsis and positive blood cultures. Had presented to ER a refused admission but when lab work returned and positive blood cultures his primary care convincing to return to hospital. CT of the abdomen her revealed nephrolithiasis which was central asymptomatic and chest x-ray revealed infiltrates. Blood cultures on admission and repeat are growing a Streptococcus group G, same organism he had with bacteremia in 2016. Presently he is nauseated with some abdominal pain post left ureteral stone removal. Stone was easily extracted and no stent placed. Exam Narrative: Exam Narrative: Blood pressure 142/86 pulse is 86 irregular sat 94% on 4 L nasal cannula afebrile Pupils equal reactive light sclera anicteric Neck supple Lungs crackles posterior bases CV no murmurs or gallops but is irregular Abdomen obese nontender of normal active Extremities no edema dorsalis pedis posterior tibial 1+ with venous stasis changes bilaterally Neuro alert pleasant cooperative no focal deficits Integument no skin breakdown rashes Objective Data Vital Signs Vital Signs: Vital Signs - 24 hr 07/29/20 20:00 07/30/20 00:00 07/30/20 02:00 Temperature 36.8 C 36.4 C L Pulse Rate 87 79 80 Respiratory Rate 16 14 Blood Pressure 129/77 123/82 Pulse Oximetry 91 96 07/30/20 04:00 07/30/20 05:00 07/30/20 07:41 Temperature 36.4 C 37.1 C Pulse Rate 85 89 93 Respiratory Rate 16 14 Blood Pressure 129/78 147/77 H Pulse Oximetry 95 93 07/30/20 08:38 07/30/20 08:50 07/30/20 09:05 Temperature 36.5 C Pulse Rate 80 85 88 Respiratory Rate 25 H 22 H 26 H Blood Pressure 123/81 132/84 140/80 Pulse Oximetry 94 95 98 07/30/20 09:20 07/30/20 09:32 07/30/20 09:40 Temperature 35.9 C L Pulse Rate 93 87 90 Respiratory Rate 20 22 H 16 Blood Pressure 129/86 126/78 142/86 H Pulse Oximetry 97 98 98 07/30/20 10:40 07/30/20 11:00 07/30/20 12:00 Temperature 36.2 C L Pulse Rate 90 88 71 Respiratory Rate 16 Blood Pressure 148/90 H Pulse Oximetry 96
--- NOTE | 2020-07-30 16:45 | WPDINFPN2 ---
Progress Note: A&P Assessment and Plan (1) Bacteremia: Code(s): R78.81 - Bacteremia Status: Acute Assessment and Plan: 1. Grp G Strep bacteremia with infection. Skin source 2. Ureteral stone POD # 0, unlikely to be the source of the bacteremia REC (antibiotic # 3) PCN # 1, until AM 2/3 tentatively. No NASIR needed. Subjective Date/time seen: 07/30/20 16:45 Objective Data Vital Signs Vital Signs: Vital Signs - 24 hr 07/29/20 20:00 07/30/20 00:00 07/30/20 02:00 Temperature 36.8 C 36.4 C L Pulse Rate 87 79 80 Respiratory Rate 16 14 Blood Pressure 129/77 123/82 Pulse Oximetry 91 96 07/30/20 04:00 07/30/20 05:00 07/30/20 07:41 Temperature 36.4 C 37.1 C Pulse Rate 85 89 93 Respiratory Rate 16 14 Blood Pressure 129/78 147/77 H Pulse Oximetry 95 93 07/30/20 08:38 07/30/20 08:50 07/30/20 09:05 Temperature 36.5 C Pulse Rate 80 85 88 Respiratory Rate 25 H 22 H 26 H Blood Pressure 123/81 132/84 140/80 Pulse Oximetry 94 95 98 07/30/20 09:20 07/30/20 09:32 07/30/20 09:40 Temperature 35.9 C L Pulse Rate 93 87 90 Respiratory Rate 20 22 H 16 Blood Pressure 129/86 126/78 142/86 H Pulse Oximetry 97 98 98 07/30/20 10:40 07/30/20 11:00 07/30/20 12:00 Temperature 36.2 C L Pulse Rate 90 88 71 Respiratory Rate 16 Blood Pressure 148/90 H Pulse Oximetry 96 Intake/Output Intake/Output: Intake & Output 07/27/20 07/28/20 07/29/20 07/30/20 23:59 23:59 23:59 23:59 Intake Total 850 2390 440 Output Total 1950 1045 Balance 850 440 -605 Meds/Results Medications: Active Medications Generic Name Dose Route Start Last Admin Trade Name Freq PRN Reason Stop Dose Admin Acetaminophen 650 mg 07/29/20 10:59 07/30/20 12:16 Acetaminophen 325 Mg Tablet PO 650 mg Q6H PRN Administration Mild Pain (1-3) or Fever Hydrocodone Bitart/Acetaminophen 1 tab 07/30/20 16:24 Hydrocodone/Acetaminophen (*Crx) 5-325 Mg Tablet PO Q4H PRN Pain Rated 4-6 Amlodipine Besylate 5 mg 07/29/20 09:00 07/30/20 11:00 Amlodipine Besylate 5 Mg Tablet PO 5 mg DAILY CHRIS Administration Ascorbic Acid 500 mg 07/29/20 09:00 07/30/20 11:00 Ascorbic Acid 500 Mg Tablet PO 500 mg DAILY CHRIS Administration Dextrose 12.5 gm 07/29/20 10:59 Dextrose 50% 25 Gm/50 Ml Syringe IV PUSH PRN PRN Hypoglycemia Protocol Famotidine 20 mg 07/28/20 21:00 07/30/20 10:59 Famotidine 20 Mg/2 Ml Vial IV PUSH 20 mg Q12HR CHRIS Administration Glucagon 1 mg 07/29/20 10:59 Glucagon For Inj 1 Mg Vial IM PRN PRN Hypoglycemia Protocol Glucose 15 gm 07/29/20 10:59 Glucose Oral Gel 15 Gm Of Glucse In 37.5 Gm Tube PO PRN PRN Hypoglycemia Protocol Hydrochlorothiazide 25 mg 07/29/20 09:00 07/30/20 10:59 Hydrochlorothiazide 25 Mg Tablet PO 25 mg DAILY CHRIS Administration Dextrose 1,000 mls @ 100 mls/hr 07/29/20 10:59 Dextrose 5% 1,000 Ml IVPB PRN PRN Hypoglycemia Protocol Penicillin G Potassium 4,000, 50 mls @ 100 mls/hr 07/30/20 13:00 07/30/20 16:18 000 units/ Dextrose IVPB Not Given Q4HR [facility] Insulin Aspart 2 - 5 units 07/29/20 12:00 07/30/20 11:26 Insulin Aspart (*Bkc) 100 Units/Ml SUB-Q Not Given TIDWM [facility] Protocol Losartan Potassium 100 mg 07/29/20 09:00 07/30/20 11:00 Losartan Potassium 100 Mg Tablet PO 08/28/20 09:01 100 mg DAILY CHRIS Administration Metoprolol Succinate 100 mg 07/29/20 09:00 07/30/20 11:00 Metoprolol Succinate Ext Rel 100 Mg Tabcr PO 100 mg DAILY CHRIS Administration Potassium Chloride 40 meq 07/30/20 17:00 Potassium Chloride 20 Meq Tablet PO 07/30/20 17:01 ONCE ONE Prochlorperazine Edisylate 10 mg 07/28/20 19:53 07/30/20 12:08 Prochlorperazine Edisylate 10 Mg/2 Ml Vial IV PUSH 10 mg Q6H PRN Administration Nausea And Vomiting Warfarin Sodium 5 mg 07/29/20 17:00 07/29/20 17:34 W
[2020-07-30] MEDS: WARFARIN (*PBKC) 5 MG TABLET PO (17:16)
[2020-07-30] MEDS: HYDROcodone/acetaminophen (*CRX) 5-325 MG TABLET 1 TAB PO ×2 (17:22→23:57)
[2020-07-30 17:42] LABS: Glucose Point of Care 180 (65-105)
--- NOTE | 2020-07-30 19:36 | CONS_ITS ---
DATE OF CONSULTATION: 07/30/2020 REASON FOR CONSULTATION: Bacteremia. HISTORY OF PRESENT ILLNESS: The patient is an 79-year-old male, who had group G Strep bacteremia just over 2 years ago and was treated accordingly with clinical resolution. I do not follow him in the office. He does have chronic venous stasis with edema. He denies any recent trauma. He has had no long-standing or short-term ulcers of the skin. He presented to the hospital 1 day before the present admission with a fever of 1 day's duration. He declined admission, but his primary care physician then encouraged him to represent, which he did on July 28. He was admitted. He has been given vancomycin and ceftriaxone various times, now on penicillin day #1. He has had no further fevers. While here, he has been found to have a ureteral stone on the left and underwent stone extraction without stent this morning. The patient does have some left lower quadrant abdominal pain without radiation. Denies rigors, hematuria, but has had some nausea and vomiting today. No antibiotics at home in recent weeks. PRESENT MEDICATIONS: List reviewed. No immunosuppressants. He is on Coumadin long-term. ALLERGIES: SULFA, WHICH CAUSE VOMITING. HABITS: No alcohol, no tobacco, quit smoking in 1987. PAST MEDICAL HISTORY: Parathyroidectomy for hyperparathyroidism, radical prostatectomy and bilateral knee replacements and right shoulder replacement, all of which have been functionally advantageous for him and no joint pains in recent weeks. Also has AF, diabetes mellitus, thrombocytopenia, pulmonary hypertension, past hepatitis C, details not available, GERD, hypertension, and dizziness. REVIEW OF SYSTEMS: 14-point review otherwise negative. FAMILY HISTORY: Not pertinent to his present illness. 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 PHYSICAL EXAMINATION: GENERAL: This is an elderly male, appears his actual age if not younger. No acute distress. VITAL SIGNS: Blood pressure 148/90, pulse 90, respirations 16, saturation 96%, and he is consistently afebrile. SKIN: No generalized rashes. Warm and dry. EENT: Conjunctivae are normal. Oropharynx, oral mucosa appeared clear. NECK: No masses or thyromegaly. LUNGS: Clear to auscultation and percussion. BACK: He has no CVAT. CARDIAC: Regular rate and rhythm. No murmurs or ectopy. Pulses 1+. ABDOMEN: Mild tenderness, left lower quadrant. No guarding. He has normal bowel sounds. Nondistended. EXTREMITIES: 3+ edema with stasis dermatitis changes bilaterally. He has some mild erythema in the left. No warmth. No tenderness. He has no open ulcerations. LABORATORY DATA: Blood cultures from the emergency room visit as well as on representation with group G Strep. His penicillin RAMA less than equal to 0.06. White count 11.8, on repeat presentation 17.1 the previous day, now normal. Hemoglobin normal, platelets 100,000. His differential is normal. He has mild hyponatremia. BUN 23, creatinine 0.9. His Accu-Cheks were 100. CRP was 17. His urinalysis yellow, clear, 1.021, 5.0, positive for protein, blood, 6-10 red cells, 0-3 white cells. RADIOLOGY: CT of the abdomen and pelvis, renal cysts, chronic pancreatitis, cirrhosis, left ureteral calculus, minimal hydronephrosis, cardiomegaly, airspace disease left lower lobe, renal cyst. ASSESSMENT: 1. Group G Streptococcus bacteremia with infection. I suspect skin source, less likely tract, biliary, lower GI, upper respiratory or primary bloodstream including endocarditis. 2. Chronic atrial fibrillation. He has had a TTE this admission and no valvular heart disease whatsoever. 3. Ureteral stone, extracted today, I doubt as a source of his bacteremia or
[2020-07-30 20:40] LABS: Glucose Point of Care 156 (65-105)
[2020-07-31] VITALS (12 sets, daily range): BP systolic 113–159; BP diastolic 76–91; PULSE 79–95; RESP 14–25; TEMP 36.3–37; O2SAT 93–96
[2020-07-31] MEDS: HYDROcodone/acetaminophen (*CRX) 5-325 MG TABLET 1 TAB PO ×3 (04:10→17:45)
[2020-07-31 05:56] LABS: Basophils Percent Auto 0.3 % (0.2-1.2); Eosinophils Absolute Auto 0.1 K/mm3 (0-0.3); Eosinophils Percent Auto 0.8 % (0-4.4); Hematocrit 40.6 % (42.0-52.0); Hemoglobin 13.8 g/dL (14.0-18.0); Immature Granulocyte Absolute 0.02 K/mm3 (0.00-0.031); Immature Granulocyte Percent A 0.3 % (0-0.5); Lymphocytes Absolute Auto 1.03 K/mm3 (0.9-3.2); Lymphocytes Percent Auto 14.2 % (18.3-44.2); Mean Corpuscular Hemoglobin 32.5 pg (26-34); Mean Corpuscular Volume 95.5 fl (80-100); Mean Platelet Volume 12.3 fl (7.4-10.4); Monocytes Absolute Auto 0.7 K/mm3 (0.1-0.6); Neutrophils Absolute Auto 5.4 K/mm3 (1.3-6.7); Neutrophils Percent Auto 74.4 % (45.5-73.1); Platelet Count Result 112 k/mm3 (150-375); Red Blood Count 4.25 M/mm3 (4.6-6.20); Red Cell Distribution Width 14.2 % (11.5-14.5); White Blood Count 7.2 K/mm3 (4.5-10.0)
[2020-07-31 06:05] LABS: INR 1.9; Prothrombin Time 22.8 Seconds (11.1-14.7)
[2020-07-31 06:07] LABS: Anion Gap 3 mmol/L (8-16); Blood Urea Nitrogen 19 mg/dL (9-20); Calcium 8.2 mg/dL (8.4-10.2); Carbon Dioxide 30 mmol/L (22-30); Chloride 100 mmol/L (98-107); Estimated CRCL calculation 61 ml/min; Estimated Glomerular Filt Rate > 60; Glucose 127 mg/dL (75-110); Potassium 3.6 mmol/L (3.4-5.0); Sodium 133 mmol/L (137-145)
[2020-07-31 08:33] LABS: Glucose Point of Care 235 (65-105)
[2020-07-31] MEDS: INSULIN ASPART (*BKC) 100 UNITS/ML SUB-Q (08:37)
[2020-07-31] MEDS: hydroCHLOROthiazide 25 MG TABLET PO (09:28)
[2020-07-31] MEDS: ASCORBIC ACID 500 MG TABLET PO (09:29)
[2020-07-31] MEDS: amLODIPine BESYLATE 5 MG TABLET PO (09:29)
[2020-07-31] MEDS: FAMOTIDINE 20 MG/2 ML VIAL IV PUSH ×2 (09:29→20:12)
[2020-07-31] MEDS: METOPROLOL SUCCINATE EXT REL 100 MG TABCR PO (09:29)
[2020-07-31] MEDS: LOSARTAN POTASSIUM 100 MG TABLET PO (09:29)
--- NOTE | 2020-07-31 10:10 | WPDANESPN ---
Anes - Prog Note Post-Op Date/Time: 07/31/20 10:10 Cardiovascular status: normal Respiratory status: normal Airway patency: baseline Mental status: baseline Post-Op hydration status: normal Vital Signs: Last Vital Signs Temp 36.3 C L 07/31/20 09:00 Pulse 92 07/31/20 09:29 Resp 16 07/31/20 09:00 BP 141/84 H 07/31/20 09:00 Pulse Ox 95 07/31/20 09:00 Pain Score (VAS): 2 I/O: Intake & Output 07/30/20 07/31/20 07/31/20 23:59 07:59 15:59 Intake Total 150 300 200 Balance 150 300 200 Laboratory Tests 07/31/20 05:22 07/31/20 05:21 07/30/20 07/30/20 07/30/20 11:25 17:14 20:14 WBC RBC Hgb Hct MCV MCH MCHC RDW Plt Count MPV Immature Gran % (Auto) Neut % (Auto) Lymph % (Auto) [place] % (Auto) Eos % (Auto) Baso % (Auto) Lymph # (Auto) [place] # (Auto) Eos # (Auto) Baso # (Auto) Abs Immat Gran (auto) Absolute Neuts (auto) Absolute Nucleated RBC Nucleated RBC % PT INR Sodium Potassium Chloride Carbon Dioxide Anion Gap BUN Creatinine Estim Creat Clear Calc Estimated GFR Glucose POC Capillary Glucose 140 H 180 H 156 H Calcium 07/31/20 07/31/20 07/31/20 05:21 05:21 05:22 WBC 7.2 RBC 4.25 L Hgb 13.8 L Hct 40.6 L MCV 95.5 MCH 32.5 MCHC 34.0 RDW 14.2 Plt Count 112 L MPV 12.3 H Immature Gran % (Auto) 0.3 Neut % (Auto) 74.4 H Lymph % (Auto) 14.2 L [place] % (Auto) 10.0 H Eos % (Auto) 0.8 Baso % (Auto) 0.3 Lymph # (Auto) 1.03 [place] # (Auto) 0.7 H Eos # (Auto) 0.1 Baso # (Auto) 0.0 Abs Immat Gran (auto) 0.02 Absolute Neuts (auto) 5.4 Absolute Nucleated RBC 0.0 Nucleated RBC % 0.0 PT 22.8 H D INR 1.9 Sodium 133 L Potassium 3.6 Chloride 100 Carbon Dioxide 30 Anion Gap 3 L BUN 19 Creatinine 1.00 Estim Creat Clear Calc 61 Estimated GFR > 60 Glucose 127 H POC Capillary Glucose Calcium 8.2 L 07/31/20 08:24 WBC RBC Hgb Hct MCV MCH MCHC RDW Plt Count MPV Immature Gran % (Auto) Neut % (Auto) Lymph % (Auto) [place] % (Auto) Eos % (Auto) Baso % (Auto) Lymph # (Auto) [place] # (Auto) Eos # (Auto) Baso # (Auto) Abs Immat Gran (auto) Absolute Neuts (auto) Absolute Nucleated RBC Nucleated RBC % PT INR Sodium Potassium Chloride Carbon Dioxide Anion Gap BUN Creatinine Estim Creat Clear Calc Estimated GFR Glucose POC Capillary Glucose 235 H Calcium Microbiology 07/28/20 18:01 Blood Blood Culture - Final Group G Streptococcus 07/28/20 17:47 Blood Blood Culture - Final Group G Streptococcus Post-procedural complaints: none Patient Feedback: Patient satisfied with anesthetic care.
[2020-07-31 12:05] LABS: Glucose Point of Care 126 (65-105)
--- NOTE | 2020-07-31 14:27 | PM.IMPN ---
Progress Note: A&P Assessment and Plan (1) Sepsis: Code(s): A41.9 - Sepsis, unspecified organism Status: Acute Assessment and Plan: As per tachycardia and leukocytosis. Blood cultures positive growing Streptococcus G Changed to penicillin G4 million units Q 4, transthoracic echo no vegetation. Id and card feel no NASIR needed recommend 1 week IV (through08/04) followed by 1 week oral source thought to be skin as before, still could be PNA (2) Pneumonia: Code(s): J18.9 - Pneumonia, unspecified organism Status: Acute Assessment and Plan: Pneumonia on imaging and physical exam with positive blood cultures. Continue O2 2 L nasal cannula and antibiotics (3) Thrombocytopenia: Code(s): D69.6 - Thrombocytopenia, unspecified Status: Acute Assessment and Plan: Suspect secondary to septic picture continue to monitor , slowly increasing at 112 K (4) Unspecified atrial fibrillation: Code(s): I48.91 - Unspecified atrial fibrillation Status: Acute Assessment and Plan: Ventricular response toward the high side with the septic picture. Continue beta-satya and anticoagulation with INR 1.9 today , recheck am before increase (5) Essential hypertension: Code(s): I10 - Essential (primary) hypertension Status: Acute Assessment and Plan: Blood pressure stable continue amlodipine and losartan hydrochlorothiazide with the beta-satya (6) Kidney stone on left side: Code(s): N20.0 - Calculus of kidney Status: Acute Assessment and Plan: Extracted 07/30 in OR with cystoscopy (7) Diabetes mellitus: Code(s): E11.9 - Type 2 diabetes mellitus without complications Status: Acute Assessment and Plan: Sliding scale while here and hold metformin (8) DVT prophylaxis: Code(s): Z29.9 - Encounter for prophylactic measures, unspecified Status: Acute Assessment and Plan: Warfarin Subjective Date/time seen: 07/31/20 14:27 Interval history: Date of visit 07/31/2020 79-year-old male admitted with sepsis and positive blood cultures. Had presented to ER a refused admission but when lab work returned and positive blood cultures his primary care convinced him to return to hospital. CT of the abdomen her revealed nephrolithiasis which was essentially asymptomatic and chest x-ray revealed infiltrates. Blood cultures on admission and repeat are growing a Streptococcus group G, same organism he had with bacteremia in 2016. Presently still some abdominal pain post left ureteral stone removal. Stone was easily extracted and no stent placed. Exam Narrative: Exam Narrative: Blood pressure 156/90 pulse is 84 irregular sat 94% on 4 L nasal cannula afebrile Pupils equal reactive light sclera anicteric Neck supple Lungs crackles posterior bases decreased CV no murmurs or gallops but is irregular Abdomen obese nontender of normal active Extremities no edema dorsalis pedis posterior tibial 1+ with venous stasis changes bilaterally Neuro alert pleasant cooperative no focal deficits Integument no skin breakdown rashes, venous stasis changes Objective Data Vital Signs Vital Signs: Vital Signs - 24 hr 07/30/20 16:00 07/30/20 20:00 07/31/20 00:00 Temperature 36.6 C 36.4 C Pulse Rate 67 89 95 Respiratory Rate 16 14 Blood Pressure 141/84 H 113/80 Pulse Oximetry 95 94 07/31/20 00:12 07/31/20 04:16 07/31/20 05:26 Temperature 36.3 C L Pulse Rate 92 81 79 Respiratory Rate 20 Blood Pressure 124/76 Pulse Oximetry 93 07/31/20 08:00 07/31/20 09:00 07/31/20 09:29 Temperature 36.3 C L Pulse Rate 92 92 92 Respiratory Rate 16 Blood Pressure 141/84 H Pulse Oximetry 95 07/31/20 12:00 07/31/20 12:20 Temperature 36.3 C L Pulse Rate 84 84 Respiratory Rate 24 H Blood Pressure 157/91 H Pulse Oximetry 94 Intake/Output Intake/Output: Intake & Output 07/28/20 07/29/20 07/30/20 07/31/20
[2020-07-31 17:20] LABS: Glucose Point of Care 126 (65-105)
[2020-07-31] MEDS: WARFARIN (*PBKC) 5 MG TABLET PO (17:40)
[2020-07-31 21:20] LABS: Glucose Point of Care 146 (65-105)
[2020-08-01] VITALS (7 sets, daily range): BP systolic 127–155; BP diastolic 74–99; PULSE 76–106; RESP 14–20; TEMP 36.1–36.9; O2SAT 92–97
[2020-08-01 05:59] LABS: Basophils Percent Auto 0.3 % (0.2-1.2); Eosinophils Absolute Auto 0.1 K/mm3 (0-0.3); Eosinophils Percent Auto 1.2 % (0-4.4); Hematocrit 42.4 % (42.0-52.0); Hemoglobin 14.9 g/dL (14.0-18.0); Immature Granulocyte Absolute 0.02 K/mm3 (0.00-0.031); Immature Granulocyte Percent A 0.3 % (0-0.5); Lymphocytes Absolute Auto 1.24 K/mm3 (0.9-3.2); Lymphocytes Percent Auto 17.9 % (18.3-44.2); Mean Corpuscular HGB Conc 35.1 g/dl (32-36); Mean Corpuscular Hemoglobin 33.5 pg (26-34); Mean Corpuscular Volume 95.3 fl (80-100); Monocytes Absolute Auto 0.9 K/mm3 (0.1-0.6); Monocytes Percent Auto 13.3 % (2.6-8.5); Neutrophils Absolute Auto 4.6 K/mm3 (1.3-6.7); Platelet Count Result 121 k/mm3 (150-375); Red Blood Count 4.45 M/mm3 (4.6-6.20); White Blood Count 6.9 K/mm3 (4.5-10.0)
[2020-08-01 06:09] LABS: INR 2.5; Prothrombin Time 27.3 Seconds (11.1-14.7)
[2020-08-01 06:29] LABS: Anion Gap 2 mmol/L (8-16); Blood Urea Nitrogen 19 mg/dL (9-20); Calcium 8.3 mg/dL (8.4-10.2); Carbon Dioxide 33 mmol/L (22-30); Chloride 99 mmol/L (98-107); Estimated CRCL calculation 47 ml/min; Estimated Glomerular Filt Rate 53; Glucose 104 mg/dL (75-110); Potassium 3.6 mmol/L (3.4-5.0); Sodium 134 mmol/L (137-145)
[2020-08-01 07:44] LABS: Glucose Point of Care 114 (65-105)
[2020-08-01] MEDS: FAMOTIDINE 20 MG/2 ML VIAL IV PUSH ×2 (08:38→20:35)
[2020-08-01] MEDS: ASCORBIC ACID 500 MG TABLET PO (08:39)
[2020-08-01] MEDS: hydroCHLOROthiazide 25 MG TABLET PO (08:39)
[2020-08-01] MEDS: LOSARTAN POTASSIUM 100 MG TABLET PO (08:39)
[2020-08-01] MEDS: amLODIPine BESYLATE 5 MG TABLET PO (08:40)
[2020-08-01] MEDS: METOPROLOL SUCCINATE EXT REL 100 MG TABCR PO (08:40)
[2020-08-01 12:25] LABS: Glucose Point of Care 116 (65-105)
--- NOTE | 2020-08-01 12:28 | PM.IMPN ---
Progress Note: A&P Assessment and Plan (1) Sepsis: Code(s): A41.9 - Sepsis, unspecified organism Status: Acute Assessment and Plan: As per tachycardia and leukocytosis. Blood cultures positive growing Streptococcus G Changed to penicillin G4 million units Q 4, transthoracic echo no vegetation. Id and card feel no NASIR needed recommend 1 week IV (through08/04) followed by 1 week oral source thought to be skin as before, still could be PNA repeat BC ordered for 08/02 (2) Pneumonia: Code(s): J18.9 - Pneumonia, unspecified organism Status: Acute Assessment and Plan: Pneumonia on imaging and physical exam with positive blood cultures. Continue antibiotics (3) Thrombocytopenia: Code(s): D69.6 - Thrombocytopenia, unspecified Status: Acute Assessment and Plan: Suspect secondary to septic picture continue to monitor , slowly increasing at 121 K today (4) Unspecified atrial fibrillation: Code(s): I48.91 - Unspecified atrial fibrillation Status: Acute Assessment and Plan: Ventricular response toward the high side with the septic picture. Continue beta-satya and anticoagulation with INR 2.5 today (5) Essential hypertension: Code(s): I10 - Essential (primary) hypertension Status: Acute Assessment and Plan: Blood pressure stable continue amlodipine and losartan hydrochlorothiazide with the beta-satya (6) Kidney stone on left side: Code(s): N20.0 - Calculus of kidney Status: Acute Assessment and Plan: Extracted 07/30 in OR with cystoscopy, no stent with ease of extraction (7) Diabetes mellitus: Code(s): E11.9 - Type 2 diabetes mellitus without complications Status: Acute Assessment and Plan: Sliding scale while here and holding metformin FBS today 104 (8) DVT prophylaxis: Code(s): Z29.9 - Encounter for prophylactic measures, unspecified Status: Acute Assessment and Plan: Warfarin Subjective Date/time seen: 08/01/20 12:28 Interval history: Date of visit 08/01/2020 79-year-old male admitted with sepsis and positive blood cultures. Had presented to ER and refused admission but when lab work returned and positive blood cultures his primary care convinced him to return to hospital. CT of the abdomen revealed nephrolithiasis which was essentially asymptomatic and chest x-ray revealed infiltrates. Blood cultures on admission and repeat are growing a Streptococcus group G, same organism he had with bacteremia in 2016. Presently feels good with no further abdominal pain or nausea after stone extraction 07/30 Exam Narrative: Exam Narrative: Blood pressure 126/76 pulse is 86 irregular sat 94% on room air Pupils equal reactive light sclera anicteric Neck supple Lungs now clear with faint hint of left posterior crackle in the base CV no murmurs or gallops but is irregular Abdomen obese nontender of normal active Extremities no edema dorsalis pedis posterior tibial 1+ with venous stasis changes bilaterally Neuro alert pleasant cooperative no focal deficits Integument no skin breakdown rashes, venous stasis changes Objective Data Vital Signs Vital Signs: Vital Signs - 24 hr 07/31/20 16:00 07/31/20 19:46 08/01/20 00:15 Temperature 36.5 C 37.0 C 36.8 C Pulse Rate 80 85 103 H Respiratory Rate 25 H 16 14 Blood Pressure 150/91 H 159/77 H 155/99 H Pulse Oximetry 96 93 95 08/01/20 05:14 08/01/20 08:00 08/01/20 08:40 Temperature 36.9 C 36.9 C Pulse Rate 81 106 H 103 H Respiratory Rate 14 20 Blood Pressure 136/74 147/90 H Pulse Oximetry 92 95 08/01/20 12:00 Temperature 36.3 C L Pulse Rate 86 Respiratory Rate 18 Blood Pressure 127/77 Pulse Oximetry 94 Intake/Output Intake/Output: Intake & Output 07/29/20 07/30/20 07/31/20 08/01/20 23:59 23:59 23:59 23:59 Intake Total 2390 1090 1100 690 Output Total 1950 1045 400 400 Balance 440 45 700 290 Meds/Results M
[2020-08-01] MEDS: WARFARIN (*PBKC) 5 MG TABLET PO (16:59)
[2020-08-01 17:33] LABS: Glucose Point of Care 106 (65-105)
[2020-08-01 23:23] LABS: Glucose Point of Care 111 (65-105)
[2020-08-02 05:25] VITALS: BP 152/84; PULSE 81; RESP 16; TEMP 36.8; O2SAT 97
[2020-08-02 05:58] LABS: Basophils Percent Auto 0.6 % (0.2-1.2); Eosinophils Absolute Auto 0.1 K/mm3 (0-0.3); Eosinophils Percent Auto 1.7 % (0-4.4); Hematocrit 43.5 % (42.0-52.0); Immature Granulocyte Absolute 0.04 K/mm3 (0.00-0.031); Immature Granulocyte Percent A 0.6 % (0-0.5); Lymphocytes Absolute Auto 1.34 K/mm3 (0.9-3.2); Lymphocytes Percent Auto 19.4 % (18.3-44.2); Mean Corpuscular HGB Conc 34.5 g/dl (32-36); Mean Corpuscular Hemoglobin 32.9 pg (26-34); Mean Corpuscular Volume 95.4 fl (80-100); Mean Platelet Volume 11.8 fl (7.4-10.4); Monocytes Absolute Auto 0.8 K/mm3 (0.1-0.6); Neutrophils Absolute Auto 4.6 K/mm3 (1.3-6.7); Neutrophils Percent Auto 66.7 % (45.5-73.1); Platelet Count Result 149 k/mm3 (150-375); Red Blood Count 4.56 M/mm3 (4.6-6.20); Red Cell Distribution Width 14.1 % (11.5-14.5); White Blood Count 6.9 K/mm3 (4.5-10.0)
[2020-08-02 06:06] LABS: Anion Gap 5 mmol/L (8-16); Blood Urea Nitrogen 27 mg/dL (9-20); Calcium 8.9 mg/dL (8.4-10.2); Carbon Dioxide 35 mmol/L (22-30); Chloride 100 mmol/L (98-107); Estimated CRCL calculation 44 ml/min; Estimated Glomerular Filt Rate 49; Glucose 111 mg/dL (75-110); Potassium 4.2 mmol/L (3.4-5.0); Sodium 140 mmol/L (137-145)
[2020-08-02 07:59] LABS: Glucose Point of Care 122 (65-105)
[2020-08-02 08:48] VITALS: PULSE 89
[2020-08-02] MEDS: METOPROLOL SUCCINATE EXT REL 100 MG TABCR PO (08:48)
[2020-08-02] MEDS: FAMOTIDINE 20 MG/2 ML VIAL IV PUSH (08:49)
[2020-08-02] MEDS: ASCORBIC ACID 500 MG TABLET PO (08:49)
[2020-08-02] MEDS: LOSARTAN POTASSIUM 100 MG TABLET PO (08:49)
[2020-08-02] MEDS: amLODIPine BESYLATE 5 MG TABLET PO (08:49)
[2020-08-02] MEDS: hydroCHLOROthiazide 25 MG TABLET PO (08:49)
[2020-08-02 10:16] LABS: INR 2.6; Prothrombin Time 28.5 Seconds (11.1-14.7)
[2020-08-02 11:45] LABS: Glucose Point of Care 127 (65-105)
--- NOTE | 2020-08-02 11:56 | WPDINFPN2 ---
Progress Note: A&P Assessment and Plan (1) Bacteremia: Code(s): R78.81 - Bacteremia Status: Acute Assessment and Plan: 1. Grp G Strep bacteremia with infection. Skin source 2. Ureteral stone POD # 3, unlikely to be the source of the bacteremia 3. Chronic venous stasis REC (antibiotic # 6) PCN # 4, until AM 2/3 tentatively. No NASIR needed. Oral therapy thereafter. No suppressive oral antibiotics needed at this point. Subjective Date/time seen: 08/02/20 11:56 Interval history: no f/c/s. No leg pain, .urine clear subjectively, no flank pain, no cva pain Exam Narrative: Exam Narrative: afebrile Const: General: no acute distress Resp: Effort & Inspection: normal respiratory effort Auscultation: clear to auscultation bilaterally Cardio: Rate: regular rate Rhythm: regular rhythm Heart sounds: no gallops and no murmurs GI: Inspection: non-distended GI Palp: Yes Soft to palpation and No Tenderness to palpation present (GI) Skin: General skin exam: normal color and no rashes or lesions noted Extrem: General: edema Objective Data Vital Signs Vital Signs: Vital Signs - 24 hr 08/01/20 12:00 08/01/20 16:00 08/01/20 19:19 Temperature 36.3 C L 36.1 C L 36.5 C Pulse Rate 86 76 89 Respiratory Rate 18 18 14 Blood Pressure 127/77 127/78 150/77 H Pulse Oximetry 94 95 97 08/02/20 05:25 08/02/20 08:48 Temperature 36.8 C Pulse Rate 81 89 Respiratory Rate 16 Blood Pressure 152/84 H Pulse Oximetry 97 Intake/Output Intake/Output: Intake & Output 07/30/20 07/31/20 08/01/20 08/02/20 23:59 23:59 23:59 23:59 Intake Total 1090 1100 1870 1030 Output Total 1045 400 700 800 Balance 45 700 1170 230 Meds/Results Medications: Active Medications Generic Name Dose Route Start Last Admin Trade Name Freq PRN Reason Stop Dose Admin Acetaminophen 650 mg 07/29/20 10:59 07/30/20 12:16 Acetaminophen 325 Mg Tablet PO 650 mg Q6H PRN Administration Mild Pain (1-3) or Fever Hydrocodone Bitart/Acetaminophen 1 tab 07/30/20 16:24 07/31/20 17:45 Hydrocodone/Acetaminophen (*Crx) 5-325 Mg Tablet PO 1 tab Q4H PRN Administration Pain Rated 4-6 Amlodipine Besylate 5 mg 07/29/20 09:00 08/02/20 08:49 Amlodipine Besylate 5 Mg Tablet PO 5 mg DAILY CHRIS Administration Ascorbic Acid 500 mg 07/29/20 09:00 08/02/20 08:49 Ascorbic Acid 500 Mg Tablet PO 500 mg DAILY CHRIS Administration Dextrose 12.5 gm 07/29/20 10:59 Dextrose 50% 25 Gm/50 Ml Syringe IV PUSH PRN PRN Hypoglycemia Protocol Famotidine 20 mg 07/28/20 21:00 08/02/20 08:49 Famotidine 20 Mg/2 Ml Vial IV PUSH 20 mg Q12HR CHRIS Administration Glucagon 1 mg 07/29/20 10:59 Glucagon For Inj 1 Mg Vial IM PRN PRN Hypoglycemia Protocol Glucose 15 gm 07/29/20 10:59 Glucose Oral Gel 15 Gm Of Glucse In 37.5 Gm Tube PO PRN PRN Hypoglycemia Protocol Hydrochlorothiazide 25 mg 07/29/20 09:00 08/02/20 08:49 Hydrochlorothiazide 25 Mg Tablet PO 25 mg DAILY CHRIS Administration Dextrose 1,000 mls @ 100 mls/hr 07/29/20 10:59 Dextrose 5% 1,000 Ml IVPB PRN PRN Hypoglycemia Protocol Penicillin G Potassium 4,000, 50 mls @ 100 mls/hr 07/30/20 13:00 08/02/20 09:25 000 units/ Dextrose IVPB Infused Q4HR CHRIS Infusion Insulin Aspart 2 - 5 units 07/29/20 12:00 08/02/20 11:52 Insulin Aspart (*Bkc) 100 Units/Ml SUB-Q Not Given TIDWM [facility] Protocol Losartan Potassium 100 mg 07/29/20 09:00 08/02/20 08:49 Losartan Potassium 100 Mg Tablet PO 08/28/20 09:01 100 mg DAILY CHRIS Administration Metoprolol Succinate 100 mg 07/29/20 09:00 08/02/20 08:48 Metoprolol Succinate Ext Rel 100 Mg Tabcr PO 100 mg DAILY CHRIS Administration Prochlorperazine Edisylate 10 mg 07/28/20 19:53 07/30/20 12:08 Prochlorperazine Edisylate 10 Mg/2 Ml Vial IV PUSH 10 mg Q6H PRN Administration Nausea And Vo
--- NOTE | 2020-08-02 12:57 | PM.IMPN ---
Progress Note: A&P Assessment and Plan (1) Sepsis: Code(s): A41.9 - Sepsis, unspecified organism Status: Acute Assessment and Plan: As per tachycardia and leukocytosis. Blood cultures 07/27 positive for Streptococcus G. Patient returned to ED on 07/28 and repeat BCx again positive for Streptococcus G. Changed to penicillin G4 million units Q 4H. Transthoracic echo showing no vegetation. Id and card feel no ANSIR needed. Repeat BCx 08/02 ordered. Recommend 1 week PCN IV (through08/04) followed by 1 week oral. Source thought to be skin infection from the LLE. Still could be PNA (2) Pneumonia: Code(s): J18.9 - Pneumonia, unspecified organism Status: Acute Assessment and Plan: Pneumonia on imaging and physical exam with positive blood cultures. COVID negative 07/27. Continue antibiotics (3) ENRRIQUE (acute kidney injury): Code(s): N17.9 - Acute kidney failure, unspecified Status: Acute Assessment and Plan: Cr up to 1.4 today. PCN can cause AIN or ATN. No peripheral eosinophilia. Check urine eosinophils. Hold hydrochlorothiazide. Follow closely. (4) Thrombocytopenia: Code(s): D69.6 - Thrombocytopenia, unspecified Status: Acute Assessment and Plan: Plt count dropped to 91K suspected secondary to septic picture. Counts continue to climb back to normal. Continue to monitor. (5) Unspecified atrial fibrillation: Code(s): I48.91 - Unspecified atrial fibrillation Status: Acute Assessment and Plan: Ventricular response toward the high side with the septic picture on admission but better now. Continue beta-satya and anticoagulation with INR 2.5. Daily INR. (6) Essential hypertension: Code(s): I10 - Essential (primary) hypertension Status: Acute Assessment and Plan: Blood pressure reviewed on 08/02 BP reaonably well controlled. Continue amlodipine, losartan and Toprol. HCTZ on hold. (7) Kidney stone on left side: Code(s): N20.0 - Calculus of kidney Status: Acute Assessment and Plan: Extracted 07/30 in OR with cystoscopy, no stent with ease of extraction. (8) Diabetes mellitus: Code(s): E11.9 - Type 2 diabetes mellitus without complications Status: Acute Assessment and Plan: The patient's blood glucose was reviewed on 08/02 Glucose remains well controlled. Continue AccuCheks covering with sliding scale. Hypoglycemia protocol available as needed. Continue current medications. Continue to hold metformin. (9) DVT prophylaxis: Code(s): Z29.9 - Encounter for prophylactic measures, unspecified Status: Acute Assessment and Plan: Warfarin Subjective Date/time seen: 08/02/20 12:57 Interval history: Date of visit 08/02 79yo male admitted with sepsis and positive blood cultures. Had presented to ER 07/27 and refused admission but when lab work returned with positive blood cultures, his primary care convinced him to return to hospital. CT of the abdomen revealed nephrolithiasis which was essentially asymptomatic and chest x-ray revealed infiltrates. Blood cultures on 07/27 and on admission (07/28) are growing a Streptococcus group G, same organism he had with bacteremia in 2016. Assuming care. Chart reviewed. Patient feels well. No problems overnight. He is not requiring any medications pain. No chest pain. Denies cough. No abdominal pain. Eating normally. Exam Narrative: Exam Narrative: AF 98.3 152/84 89 16 97% ra Gen - NARD sitting in a chair Chest -bibasilar inspiratory otherwise clear. CV - irregularly irregular S1/S2 Abd - Soft, NT/ND, Positive BS Ext -left greater than right pedal edema Neuro - Alert and appropriate. Psych - Nml mood and affect Skin -redness purple discoloration to the left lower extremity with minimal warmth. Objective Data Vital Signs Vital Signs: Vital Signs - 24 hr 08/01/20 16:00 08/01/20
[2020-08-02 13:45] VITALS: BP 152/72; PULSE 68; RESP 16; TEMP 36.2; O2SAT 96
[2020-08-02 16:26] LABS: Add Urine Microscopic? YES; Appearance Urine Clear (Clear); Bacteria Urine Trace /hpf; Bilirubin Urine Negative (Negative); Blood Urine 2+ (Negative); Color Urine Yellow (Yellow); Glucose Urine UA Negative (Negative); Ketones Urine Negative (Negative); Leukocyte Esterase Ur Negative LEU/UL (Negative); Mucus Urine Rare /lpf; Nitrate Urine Negative (Negative); Protein Urine 1+ mg/dL (Negative); RBC Urine >75 /hpf (0-2); Specific Grav Ur 1.017 (1.001-1.035); Urobilinogen Urine Negative mg/dL (<2.0); WBC Urine 0-3 /hpf
[2020-08-02 16:39] LABS: Glucose Point of Care 108 (65-105)
[2020-08-02] MEDS: WARFARIN (*PBKC) 5 MG TABLET PO (17:04)
[2020-08-02 19:22] VITALS: BP 117/88; PULSE 78; RESP 16; TEMP 36.1; O2SAT 98
[2020-08-02] MEDS: FAMOTIDINE 20 MG TABLET PO (21:11)
[2020-08-02 21:49] LABS: Glucose Point of Care 113 (65-105)
[2020-08-03 05:00] VITALS: BP 130/80; PULSE 92; RESP 18; TEMP 36.2; O2SAT 95
[2020-08-03 05:59] LABS: Basophils Absolute Auto 0.1 K/mm3 (0.0-0.1); Basophils Percent Auto 0.5 % (0.2-1.2); Eosinophils Absolute Auto 0.2 K/mm3 (0-0.3); Eosinophils Percent Auto 2.3 % (0-4.4); Hematocrit 41.3 % (42.0-52.0); Hemoglobin 14.5 g/dL (14.0-18.0); Immature Granulocyte Absolute 0.05 K/mm3 (0.00-0.031); Immature Granulocyte Percent A 0.5 % (0-0.5); Lymphocytes Absolute Auto 1.73 K/mm3 (0.9-3.2); Lymphocytes Percent Auto 17.9 % (18.3-44.2); Mean Corpuscular HGB Conc 35.1 g/dl (32-36); Mean Corpuscular Hemoglobin 33.3 pg (26-34); Mean Corpuscular Volume 94.7 fl (80-100); Mean Platelet Volume 11.4 fl (7.4-10.4); Monocytes Absolute Auto 0.9 K/mm3 (0.1-0.6); Monocytes Percent Auto 9.8 % (2.6-8.5); Neutrophils Absolute Auto 6.7 K/mm3 (1.3-6.7); Platelet Count Result 168 k/mm3 (150-375); Red Blood Count 4.36 M/mm3 (4.6-6.20); Red Cell Distribution Width 14.2 % (11.5-14.5); White Blood Count 9.6 K/mm3 (4.5-10.0)
[2020-08-03 06:11] LABS: Albumin Level 3.8 g/dL (3.5-5.1); Anion Gap 6 mmol/L (8-16); Blood Urea Nitrogen 26 mg/dL (9-20); Calcium 8.4 mg/dL (8.4-10.2); Carbon Dioxide 33 mmol/L (22-30); Chloride 104 mmol/L (98-107); Estimated CRCL calculation 44 ml/min; Estimated Glomerular Filt Rate 49; Glucose 111 mg/dL (75-110); Magnesium 1.8 mg/dL (1.6-2.3); Phosphorus 4.3 mg/dL (2.5-4.5); Potassium 3.7 mmol/L (3.4-5.0); Sodium 143 mmol/L (137-145)
[2020-08-03 08:00] LABS: Glucose Point of Care 163 (65-105)
[2020-08-03] MEDS: amLODIPine BESYLATE 5 MG TABLET PO (10:12)
[2020-08-03 10:13] VITALS: PULSE 53
[2020-08-03] MEDS: METOPROLOL SUCCINATE EXT REL 100 MG TABCR PO (10:13)
[2020-08-03] MEDS: LOSARTAN POTASSIUM 100 MG TABLET PO (10:13)
[2020-08-03] MEDS: ASCORBIC ACID 500 MG TABLET PO (10:13)
[2020-08-03] MEDS: FAMOTIDINE 20 MG TABLET PO ×2 (10:13→20:01)
[2020-08-03 11:57] LABS: Glucose Point of Care 125 (65-105)
--- NOTE | 2020-08-03 12:07 | PM.IMPN ---
Progress Note: A&P Assessment and Plan (1) Sepsis: Code(s): A41.9 - Sepsis, unspecified organism Status: Acute Assessment and Plan: Present on admission with tachycardia and leukocytosis. Blood cultures 07/27 positive for Streptococcus G. Patient returned to ED on 07/28 and repeat BCx again positive for Streptococcus G. Changed to penicillin G 4 million units Q 4H. Transthoracic echo showing no vegetation. ID and card feel no NASIR needed. Repeat BCx 08/02 NGTD. Recommend 1 week PCN IV (through08/04) followed by 1 week oral. Source thought to be skin infection from the LLE. Still could be PNA (2) Pneumonia: Code(s): J18.9 - Pneumonia, unspecified organism Status: Acute Assessment and Plan: Pneumonia on imaging and physical exam with positive blood cultures. COVID negative 07/27. Continue antibiotics (3) ENRRIQUE (acute kidney injury): Code(s): N17.9 - Acute kidney failure, unspecified Status: Acute Assessment and Plan: Cr up to 1.4 yesterday and stable today. PCN can cause AIN or ATN. No peripheral eosinophilia. Urine eosinophils pending. Hydrochlorothiazide on hold. Continue to follow closely. (4) Thrombocytopenia: Code(s): D69.6 - Thrombocytopenia, unspecified Status: Acute Assessment and Plan: Plt count dropped to 91K suspected secondary to septic picture. Counts continue to climb back to normal. Monitor periodically. (5) Unspecified atrial fibrillation: Code(s): I48.91 - Unspecified atrial fibrillation Status: Acute Assessment and Plan: Ventricular response toward the high side with the septic picture on admission but better now. Continue beta-satya and anticoagulation with INR 3 today. Daily INR. (6) Essential hypertension: Code(s): I10 - Essential (primary) hypertension Status: Acute Assessment and Plan: Blood pressure reviewed on 08/03 BP reasonably well controlled. Continue amlodipine, losartan and Toprol. (7) Kidney stone on left side: Code(s): N20.0 - Calculus of kidney Status: Acute Assessment and Plan: Extracted 07/30 in OR with cystoscopy, no stent given the ease of extraction. (8) Diabetes mellitus: Code(s): E11.9 - Type 2 diabetes mellitus without complications Status: Acute Assessment and Plan: The patient's blood glucose was reviewed on 08/03 Glucose remains well controlled. Continue AccuCheks covering with sliding scale. Hypoglycemia protocol available as needed. Continue current medications. Continue to hold metformin. (9) DVT prophylaxis: Code(s): Z29.9 - Encounter for prophylactic measures, unspecified Status: Acute Assessment and Plan: Warfarin Subjective Date/time seen: 08/03/20 12:07 Interval history: Date of visit 08/03 79yo male admitted with sepsis and positive blood cultures. Had presented to ER 07/27 and refused admission but when lab work returned with positive blood cultures, his primary care convinced him to return to hospital. CT of the abdomen revealed nephrolithiasis which was essentially asymptomatic and chest x-ray revealed infiltrates. Blood cultures on 07/27 and on admission (07/28) are growing a Streptococcus group G, same organism he had with bacteremia in 2016. Patient feels well today. No complaints. Stools lose but no ann diarrhea. No nausea or vomiting. Eating normally. No chest pain or shortness of breath. Walking to the bathroom unassisted. He feels ready for discharge. Exam Narrative: Exam Narrative: AF 97.2 130/80 53 18 95% ra Gen - NARD sitting up at the side of the bed Chest -minor bibasilar inspiratory crackles otherwise clear. CV - irregularly irregular S1/S2 Abd - Soft, NT/ND, Positive BS Ext -trace to 1+ pedal edema. No calf pain. Neuro - Alert and appropriate. Psych - Nml mood and affect Skin -redness purple discoloration to the left lower extremity
--- NOTE | 2020-08-03 12:07 | WPDINFPN2 ---
Progress Note: A&P Assessment and Plan (1) Bacteremia: Code(s): R78.81 - Bacteremia Status: Acute Assessment and Plan: 1. Grp G Strep bacteremia with infection. Skin source. Repeat BCs ng 24 hours 2. Ureteral stone POD # 4, unlikely to be the source of the bacteremia. Sent for chemical analysis 3. Chronic venous stasis REC (antibiotic # 7) PCN # 5, continue until AM 2/3. Then begin Amoxicillin through 08/10. See orders. No NASIR needed. No suppressive oral antibiotics needed at this point. Will sign off, thanks Subjective Date/time seen: 08/03/20 12:07 Interval history: no new complaints, up in room without difficulty Exam Narrative: Exam Narrative: afebrile Const: General: no acute distress Eyes: General: appearance normal, both eyes and all related structures Resp: Effort & Inspection: normal respiratory effort Auscultation: clear to auscultation bilaterally Cardio: Rate: regular rate Rhythm: regular rhythm Heart sounds: no murmurs Skin: General skin exam: normal color and no rashes or lesions noted Extrem: General: edema and pedal edema Objective Data Vital Signs Vital Signs: Vital Signs - 24 hr 08/02/20 13:45 08/02/20 19:22 08/03/20 05:00 Temperature 36.2 C L 36.1 C L 36.2 C L Pulse Rate 68 78 92 Respiratory Rate 16 16 18 Blood Pressure 152/72 H 117/88 130/80 Pulse Oximetry 96 98 95 08/03/20 10:13 Temperature Pulse Rate 53 L Respiratory Rate Blood Pressure Pulse Oximetry Intake/Output Intake/Output: Intake & Output 07/31/20 08/01/20 08/02/20 08/03/20 23:59 23:59 23:59 23:59 Intake Total 1100 1870 2300 690 Output Total 400 700 800 Balance 700 1170 1500 690 Meds/Results Medications: Active Medications Generic Name Dose Route Start Last Admin Trade Name Freq PRN Reason Stop Dose Admin Acetaminophen 650 mg 07/29/20 10:59 07/30/20 12:16 Acetaminophen 325 Mg Tablet PO 650 mg Q6H PRN Administration Mild Pain (1-3) or Fever Hydrocodone Bitart/Acetaminophen 1 tab 07/30/20 16:24 07/31/20 17:45 Hydrocodone/Acetaminophen (*Crx) 5-325 Mg Tablet PO 1 tab Q4H PRN Administration Pain Rated 4-6 Amlodipine Besylate 5 mg 07/29/20 09:00 08/03/20 10:12 Amlodipine Besylate 5 Mg Tablet PO 5 mg DAILY CHRIS Administration Ascorbic Acid 500 mg 07/29/20 09:00 08/03/20 10:13 Ascorbic Acid 500 Mg Tablet PO 500 mg DAILY CHRIS Administration Dextrose 12.5 gm 07/29/20 10:59 Dextrose 50% 25 Gm/50 Ml Syringe IV PUSH PRN PRN Hypoglycemia Protocol Famotidine 20 mg 08/02/20 21:00 08/03/20 10:13 Famotidine 20 Mg Tablet PO 20 mg Q12HR CHRIS Administration Glucagon 1 mg 07/29/20 10:59 Glucagon For Inj 1 Mg Vial IM PRN PRN Hypoglycemia Protocol Glucose 15 gm 07/29/20 10:59 Glucose Oral Gel 15 Gm Of Glucse In 37.5 Gm Tube PO PRN PRN Hypoglycemia Protocol Hydrochlorothiazide 25 mg 07/29/20 09:00 08/02/20 08:49 Hydrochlorothiazide 25 Mg Tablet PO 25 mg DAILY CHRIS Administration Dextrose 1,000 mls @ 100 mls/hr 07/29/20 10:59 Dextrose 5% 1,000 Ml IVPB PRN PRN Hypoglycemia Protocol Penicillin G Potassium 4,000, 50 mls @ 100 mls/hr 07/30/20 13:00 08/03/20 10:44 000 units/ Dextrose IVPB Infused Q4HR CHRIS Infusion Insulin Aspart 2 - 5 units 07/29/20 12:00 08/03/20 12:01 Insulin Aspart (*Bkc) 100 Units/Ml SUB-Q Not Given TIDWM CHRIS Protocol Losartan Potassium 100 mg 07/29/20 09:00 08/03/20 10:13 Losartan Potassium 100 Mg Tablet PO 08/28/20 09:01 100 mg DAILY CHRIS Administration Metoprolol Succinate 100 mg 07/29/20 09:00 08/03/20 10:13 Metoprolol Succinate Ext Rel 100 Mg Tabcr PO 100 mg DAILY CHRIS Administration Prochlorperazine Edisylate 10 mg 07/28/20 19:53 07/30/20 12:08 Prochlorperazine Edisylate 10 Mg/2 Ml Vial IV PUSH 10 mg Q6H PRN Administration Nausea And Vomiting Warf
[2020-08-03 13:00] VITALS: BP 125/79; PULSE 85; RESP 16; TEMP 36.7; O2SAT 98
[2020-08-03 16:46] LABS: Glucose Point of Care 104 (65-105)
[2020-08-03] MEDS: WARFARIN (*PBKC) 5 MG TABLET PO (17:17)
[2020-08-03 21:28] VITALS: BP 112/65; PULSE 73; RESP 16; TEMP 36.6; O2SAT 97
[2020-08-03 21:45] LABS: Glucose Point of Care 131 (65-105)
[2020-08-04 05:00] VITALS: BP 152/86; PULSE 81; RESP 18; TEMP 36.1; O2SAT 98
[2020-08-04] MEDS: AMOXICILLIN 500 MG CAPSULE PO (05:14)
[2020-08-04 05:57] LABS: INR 2.8; Prothrombin Time 29.7 Seconds (11.1-14.7)
[2020-08-04 06:07] LABS: Anion Gap 6 mmol/L (8-16); Blood Urea Nitrogen 18 mg/dL (9-20); Calcium 8.5 mg/dL (8.4-10.2); Carbon Dioxide 31 mmol/L (22-30); Chloride 104 mmol/L (98-107); Estimated CRCL calculation 67 ml/min; Estimated Glomerular Filt Rate > 60; Glucose 107 mg/dL (75-110); Potassium 3.7 mmol/L (3.4-5.0); Sodium 141 mmol/L (137-145)
[2020-08-04] MEDS: LOSARTAN POTASSIUM 100 MG TABLET PO (08:21)
[2020-08-04] MEDS: ASCORBIC ACID 500 MG TABLET PO (08:21)
[2020-08-04] MEDS: FAMOTIDINE 20 MG TABLET PO (08:21)
[2020-08-04] MEDS: amLODIPine BESYLATE 5 MG TABLET PO (08:21)
[2020-08-04 08:22] VITALS: PULSE 96
[2020-08-04 08:22] LABS: Glucose Point of Care 137 (65-105)
[2020-08-04] MEDS: METOPROLOL SUCCINATE EXT REL 100 MG TABCR PO (08:22)
--- NOTE | 2020-08-04 08:33 | PM.DS ---
DS: Admitting Diagnosis Admitting Diagnosis Admitting Diagnosis: Cough and positive BCx DS: Discharge Diagnosis Discharge Diagnosis (1) Sepsis: Code(s): A41.9 - Sepsis, unspecified organism Status: Acute Assessment and Plan: Present on admission with tachycardia and leukocytosis. Patient in the ED on 07/27 and BCx drawn; he refused admission and returned home. Blood cultures 07/27 positive for Streptococcus G. Patient returned to ED on 07/28 and repeat BCx again positive for Streptococcus G. Changed to penicillin G 4 million units Q4H. Transthoracic echo showing no vegetation. ID and Cardiology felt no NASIR needed. Repeat BCx 08/02 NGTD. Completed PCN IV through08/04 followed by 1 week oral. Source thought to be skin infection from the LLE but still could be PNA. (2) Pneumonia: Code(s): J18.9 - Pneumonia, unspecified organism Status: Acute Assessment and Plan: Pneumonia on imaging and physical exam with positive blood cultures. CTA showing no evidence of pulmonary embolism but with patchy bilateral lower lobe and lingular infiltrate. COVID negative 07/27. Treatment as above. (3) ENRRIQUE (acute kidney injury): Code(s): N17.9 - Acute kidney failure, unspecified Status: Acute Assessment and Plan: Cr normal on admission but climbed to 1.4 felt related to the PCN. No peripheral eosinophilia. Urine eosinophils negative. Hydrochlorothiazide held. Cr normalized again. Resume HCTZ and repeat BMP as out patient (4) Thrombocytopenia: Code(s): D69.6 - Thrombocytopenia, unspecified Status: Acute Assessment and Plan: Plt count dropped to 91K suspected secondary to septic picture. Platelet count improved and ultimately normalized with treatment of sepsis. (5) Unspecified atrial fibrillation: Code(s): I48.91 - Unspecified atrial fibrillation Status: Acute Assessment and Plan: Ventricular response toward the high side with the septic picture on admission but better now. We continued his beta-satya and anticoagulation with INR 2.8 today. (6) Essential hypertension: Code(s): I10 - Essential (primary) hypertension Status: Acute Assessment and Plan: Blood pressure monitored closely. BP reasonably well controlled. We continued a majority of his anti-HTN medications. (7) Kidney stone on left side: Code(s): N20.0 - Calculus of kidney Status: Acute Assessment and Plan: CT showing bilateral renal cysts, 3.5 mm distal left ureteral calculus without significant hydroureteronephrosis and bilateral nonobstructive nephrolithiasis. He is status post prostatectomy and bilateral pelvic sidewall lymph node resection. Stone extracted 07/30 in OR with cystoscopy. Appreciate Urology input. No stent placed given the ease of extraction. CT scan on 07/27 also showing chronic pancreatitis as well but no issues with eating; lipase normal. CT scan was repeated on 07/28 which showed liver nodularity but not on the 07/27/20 CT scan so unclear if this is accurate. AST normal on admisison but climbed to 78 before trending down (ALT remained normal). TB peaked at 2.8 with normal albumin. (8) Diabetes mellitus: Code(s): E11.9 - Type 2 diabetes mellitus without complications Status: Acute Assessment and Plan: The patient's blood glucose monitored closely. Glucose remained well controlled. Monitored with AccuCheks covering with sliding scale. Hypoglycemia protocol was available as needed. We had held his metformin but can be resumed at discharge. DS: Summary Hospital Course Reason for hospitalization: 79yo male with HTN, DM, and chronic AFib on anticoagulation was originally seen in the ED on 07/27/20 for nausea, vomiting, diarrhea and fever and had BCx drawn. Patient was encouraged to stay but he left against medical advice. When positive blood cultures were seen by primary care physician,
== END 2020-08-04 09:20 | disposition home or self-care (01) | DRG 853 ==
LOC: ANHED 19:45 → ANH3MED 07-29 01:13 → ANHIMU 08-09 13:30
PROVIDERS: Emergency Medicine Emergency Medical Services; Internal Medicine; Urology; Admitting Provider Family Medicine; Emergency Provider Emergency Medicine; PCP Family Medicine; Visit Provider Internal Medicine
PROC: 0TC78ZZ Extirpation of Matter from Left Ureter, Via Natural or Artificial Opening Endoscopic (ICD-10-PCS; CPT 52352; principal; 2020-07-30 08:30)
DX: A40.8 Other streptococcal sepsis (principal); J18.9 Pneumonia, unspecified organism; I48.20 Chronic atrial fibrillation, unspecified; N17.9 Acute kidney failure, unspecified; N20.2 Calculus of kidney with calculus of ureter; D69.6 Thrombocytopenia, unspecified; I27.20 Pulmonary hypertension, unspecified; Z20.822 Contact with and (suspected) exposure to COVID-19; N14.1 Nephropathy induced by other drugs, medicaments and biological substances; T36.0X5A Adverse effect of penicillins, initial encounter; R77.8 Other specified abnormalities of plasma proteins; I10 Essential (primary) hypertension; E89.2 Postprocedural hypoparathyroidism; K21.9 Gastro-esophageal reflux disease without esophagitis; E11.9 Type 2 diabetes mellitus without complications; I87.8 Other specified disorders of veins; Z79.01 Long term (current) use of anticoagulants; Z79.84 Long term (current) use of oral hypoglycemic drugs; Z86.19 Personal history of other infectious and parasitic diseases; Z87.891 Personal history of nicotine dependence; Z88.2 Allergy status to sulfonamides; Z90.79 Acquired absence of other genital organ(s); Z91.81 History of falling; Z96.611 Presence of right artificial shoulder joint; Z96.653 Presence of artificial knee joint, bilateral
CPT/HCPCS: 36415; 71045; 71275; 74018; 74176; 74177; 80048; 80053; 80069; 81001; 82365; 82948; 83605; 83690; 83735; 83880; 84100; 84484; 85025; 85380; 85610; 85730; 85999; 86140; 87040; 87147; 87186; 88300; 93005; 96360; 96361; 96365; 96375; 99285; A9270; C1769; C1887; C8929; C9803; J0456; J0696; J0780; J1815; J1940; J2540; J2704; J3010; J3370; J3475; J7120; Q9957; Q9967; U0003; U0005

== ENCOUNTER → 2020-10-06 14:33 | Outpatient (CLI) | payer OTHER, SELFPAY ==
--- NOTE | ~2020-10-06 | XR_ITS ---
EXAMINATION: XR hand RT min 3V, XR wrist RT w scaphoid DATE: 10/06/2020 15:09 INDICATION: Right hand pain TECHNIQUE: 1. Posteroanterior, ulnar deviation, scaphoid, oblique, and lateral views of the right wrist were obt ained. 2. Dorsal palmar, oblique and lateral views of the right hand were obtained. COMPARISON: None. FINDINGS: Alignment of the hand and wrist are normal.. No acute fracture. Exostosis versus old healed fracture deformity at the radial side of the head of the fourth proximal phalanx. Additional likely old healed fracture deformity at the neck of the right fifth metacarpal. Dystrophic calcifications at multiple joints most prominent at the right wrist, first-third and fifth metacarpophalangeal joints and fifth proximal interphalangeal joint. Interval progression of moderate osteoarthritis at the third metacarp ophalangeal joint. Additional mild polyarticular osteoarthritis at the distal radioulnar, triscaphe, first carpometacarpal and at the remaining metacarpophalangeal and interphalangeal joints. IMPRESSION: 1. Interval progression of now moderate osteoarthritis at the third metacarpophalangeal joint with ad ditional extensive mild polyarticular osteoarthritis throughout the right hand and wrist. 2. There is also been interval progression of dystrophic calcifications involving multiple joints of the right wrist and hand which may be related to reported history of hyperparathyroidism with hyperca lcemia. Reviewed, dictated and finalized at location B. IMPRESSION: 1. Interval progression of now moderate osteoarthritis at the third metacarpoph alangeal joint with additional extensive mild polyarticular osteoarthritis thro ughout the right hand and wrist. 2. There is also been interval progression of dystrophic calcifications involvi ng multiple joints of the right wrist and hand which may be related to reported history of hyperparathyroidism with hypercalcemia.
== END ==
PROVIDERS: PCP Family Medicine; Visit Provider Physician Assistant
DX: M19.041 Primary osteoarthritis, right hand (principal)
CPT/HCPCS: 73110; 73130

== ENCOUNTER → 2021-05-10 08:35 | Outpatient (REF) | payer OTHER, SELFPAY | LOC: ANHLAB 08:35 | PROVIDERS: PCP Family Medicine; Visit Provider Nurse Practitioner | DX: C44.212 Basal cell carcinoma of skin of right ear and external auricular canal (principal) | CPT/HCPCS: 88305 ==

== ENCOUNTER → 2021-07-11 07:21 | Outpatient (REF) | payer OTHER, SELFPAY | LOC: ANHLAB 07:21 | PROVIDERS: PCP Family Medicine; Visit Provider Nurse Practitioner | DX: C44.212 Basal cell carcinoma of skin of right ear and external auricular canal (principal) | CPT/HCPCS: 88305; 88331 ==

== ENCOUNTER → 2021-07-12 11:16 | Outpatient (REF) | payer OTHER, SELFPAY | LOC: ANHLAB 11:16 | PROVIDERS: PCP Family Medicine; Visit Provider Nurse Practitioner | DX: L72.0 Epidermal cyst (principal) | CPT/HCPCS: 88304 ==

== ENCOUNTER 2023-02-13 08:00 | Outpatient (NON) | payer OTHER, SELFPAY | END 2023-02-13 08:01 | disposition home or self-care (01) | LOC: ANHLAB 02-14 12:12 | PROVIDERS: PCP Family Medicine; Visit Provider Nurse Practitioner | DX: D22.39 Melanocytic nevi of other parts of face (principal) | CPT/HCPCS: 88305 ==

== ENCOUNTER 2023-08-04 20:29 | Inpatient (IN) | payer OTHER, SELFPAY ==
--- NOTE | ~2023-08-04 | CT_ITS ---
EXAMINATION: CTA chest PE abdomen pel DATE: 08/05/2023 00:53 INDICATION: Fever, elevated bilirubin TECHNIQUE: Computed tomography angiography (CTA) of the chest was performed with 100 mL Omnipaque-350 intravenous contrast timed to evaluate the pulmonary arteries. Subsequent postcontrast images of the abdomen and pelvis are obtained. Coronal maximum intensity projection 3D-reconstructions were create d by the technologist. The dose-length product (DLP) was 2413.97 mGy-cm. Automated exposure control a nd iterative reconstruction technique were employed. COMPARISON: 07/28/2020 FINDINGS: CTA CHEST: The pulmonary arteries are well-opacified. No pulmonary embolism is identified. Cardiomega ly is noted. There is calcified coronary artery atherosclerosis. There are airspace opacities of the lower lobes, left greater than right. There are trace pleural effusions. No pneumothorax is identifie d. There are no pathologically enlarged thoracic lymph nodes. There are changes of right total should er arthroplasty. There is advanced osteoarthritis of the left glenohumeral joint. ABDOMEN/PELVIS CT: There is nodularity of the liver surface. The spleen, pancreas, gallbladder, and a drenal glands are normal. Cysts of the kidneys measure up to 7.9 cm on the left. There is calcified a therosclerosis of the aorta and many of the other arteries. No pathologically enlarged abdominal or p elvic lymph nodes are identified. No free intraperitoneal gas or evidence of bowel obstruction. Surgi nelson changes of prostatectomy and pelvic lymph node dissection are noted. Advanced osteoarthritis is n oted in the left wrist. There is severe lumbar spondylosis. IMPRESSION: 1. No pulmonary embolus identified. 2. Airspace opacities of the lower lobes, left greater than right, consistent with atelectasis versus pneumonia 3. Cirrhosis. Reviewed, dictated and finalized at location A. LERATOR TECHNICIAN IMPRESSION: 1. No pulmonary embolus identified. 2. Airspace opacities of the lower lobes, left greater than right, consistent w ith atelectasis versus pneumonia 3. Cirrhosis.
--- NOTE | ~2023-08-04 | XR_ITS ---
EXAMINATION: XR chest 1V portable INDICATION: Cough and fever TECHNIQUE: Portable AP chest at 2206 hours COMPARISON: 07/27/2020 FINDINGS: Cardiomegaly is noted. There is a mild diffuse interstitial pattern. No pleural effusion or pneumothorax. Changes of right total shoulder arthroplasty are noted. IMPRESSION: 1. Cardiomegaly with mild pulmonary edema. Reviewed, dictated and finalized at location F. GY AND CONSERVATION TECHNICIAN
--- NOTE | ~2023-08-04 | XR_ITS ---
EXAMINATION: XR shoulder LT min 2V DATE: 08/06/2023 15:25 INDICATION: Left shoulder pain TECHNIQUE: AP and transscapular Y views of the left shoulder were obtained. COMPARISON: CT dated 08/05/2023 FINDINGS: Normal alignment. No fracture.Severe osteoarthritis at the left glenohumeral joint and moderate acrom ioclavicular osteoarthritis. Small right lung volume with left basilar atelectasis. Soft tissues are unremarkable. 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 Reviewed, dictated and finalized at location A. TAL DESIGNER
[2023-08-04 20:38] VITALS: BP 140/98; PULSE 74; RESP 20; TEMP 37.8; O2SAT 95
[2023-08-04 21:26] LABS: Influenza A QL RT-PCR Negative (Negative); Influenza B QL RT-PCR Negative (Negative); RSV RNA, RT-PCR Negative (Negative); SARS-CoV-2 RNA PCR Negative (Negative)
[2023-08-04 21:47] VITALS: BP 147/88; PULSE 75; RESP 28; TEMP 37.4; O2SAT 89
[2023-08-04 21:52] VITALS: O2SAT 95
[2023-08-04 22:49] LABS: Basophils Percent Auto 0.4 % (0.2-1.2); Eosinophils Percent Auto 0.4 % (0-4.4); Hematocrit 45.1 % (42.0-52.0); Hemoglobin 14.7 g/dL (14.0-18.0); Immature Granulocyte Absolute 0.02 K/mm3 (0.00-0.031); Immature Granulocyte Percent A 0.3 % (0-0.5); Immature Platelet Fraction Pct 8.6 % (0.9-11.2); Lymphocytes Absolute Auto 0.77 K/mm3 (0.9-3.2); Lymphocytes Percent Auto 10.3 % (18.3-44.2); Mean Corpuscular HGB Conc 32.6 g/dl (32-36); Mean Corpuscular Hemoglobin 32.2 pg (26-34); Mean Corpuscular Volume 98.9 fl (80-100); Mean Platelet Volume 12.1 fl (7.4-10.4); Monocytes Absolute Auto 0.7 K/mm3 (0.1-0.6); Monocytes Percent Auto 9.1 % (2.6-8.5); Neutrophils Percent Auto 79.5 % (45.5-73.1); Platelet Count Result 114 k/mm3 (150-375); Red Blood Count 4.56 M/mm3 (4.6-6.20); White Blood Count 7.5 K/mm3 (4.5-10.0)
[2023-08-04] MEDS: SODIUM CHLORIDE 0.9% IV 1,000 ML 999 ML IV CONT (22:51)
[2023-08-04 22:57] LABS: INR 2.4; Prothrombin Time 27.8 Seconds (11.1-14.7)
[2023-08-04 22:58] LABS: Lactic Acid Reflex 1.3 mmol/L (0.7-2.0); Partial Thromboplastin Time 41.8 SECONDS (22.3-36.8)
[2023-08-04 22:59] LABS: Alanine Aminotransferase 20 U/L (6-50); Albumin Level 4.2 g/dL (3.5-5.1); Alkaline Phosphatase 105 U/L (38-126); Anion Gap 8 mmol/L (8-16); Aspartate Amino Transferase 25 U/L (17-59); Bilirubin,Total 2.8 mg/dL (0.2-1.3); Blood Urea Nitrogen 17 mg/dL (9-20); Calcium 8.8 mg/dL (8.4-10.2); Carbon Dioxide 31 mmol/L (22-30); Chloride 101 mmol/L (98-107); Estimated CRCL calculation 80 ml/min; Estimated Glomerular Filt Rate > 60; Glucose 128 mg/dL (65-110); Magnesium 1.6 mg/dL (1.6-2.3); Potassium 3.3 mmol/L (3.4-5.0); Sodium 140 mmol/L (137-145)
[2023-08-04 23:06] LABS: Appearance Urine Clear (Clear); Bacteria Urine None Seen /hpf; Bilirubin Urine Negative (Negative); Blood Urine Negative (Negative); Color Urine Yellow (Yellow); Glucose Urine UA Negative (Negative); Ketones Urine Negative (Negative); Leukocyte Esterase Ur Negative LEU/UL (Negative); Nitrate Urine Negative (Negative); Non Pathogenic Casts 0-2; Protein Urine Trace mg/dL (Negative); RBC Urine 0-2 /hpf (0-2); Specific Grav Ur 1.018 (1.001-1.035); Squamous Epithelial Cell Urine None seen /hpf (Few); WBC Urine 0-5 /hpf
[2023-08-04 23:11] LABS: Troponin I < 0.012 ng/mL (0.000-0.034)
[2023-08-04 23:16] LABS: Procalcitonin 0.1 ng/mL
[2023-08-04 23:50] LABS: Add Urine Microscopic? YES
[2023-08-05] VITALS (21 sets, daily range): BP systolic 117–156; BP diastolic 54–98; PULSE 73–104; RESP 14–40; TEMP 36.7–39; O2SAT 90–97; BMI 31.6
--- NOTE | 2023-08-05 02:32 | ED.GENADULT ---
HPI - General Adult General Chief complaint: Fever Stated complaint: fever Time Seen by Provider: 08/04/23 21:52 History of Present Illness HPI narrative: patient 82-year-old gentleman who presents emergency department with chief complaint of fever. The patient reports he has had several episodes of sepsis with 3 admissions in the past the patient reports that he started spiking a temperature of a 101? has not felt well. The patient has prior history of bacteremia of the patient reports that he has noticed that his legs are a little bit more uncomfortable as he has had some recent travel. Related Data Home Medications Medication Instructions Recorded Confirmed cholecalciferol (vitamin D3) 50 50 mcg PO DAILY 07/29/20 03/30/23 mcg (2,000 unit) capsule (Vitamin D3) B-complex with vitamin C 1 cap PO DAILY 10/18/20 03/30/23 omega-3 fatty acids 1,000 mg 1,000 mg PO DAILY 10/18/20 03/30/23 capsule (Fish Oil Concentrate) vitamins A,C,U-fans-oxgyiz 4,296 1 cap PO BID 10/18/20 03/30/23 mcg-226 mg-90 mg capsule (PreserVision AREDS) Allergies Allergy/AdvReac Type Severity Reaction Status Date / Time Sulfa (Sulfonamide Allergy Unknown Vomiting Verified 03/30/23 10:31 Antibiotics) Review of Systems Review of Systems: A 10 system review of systems was completed on the patient and is negative except for what is stated in the HPI. Nursing and ancillary documentation was reviewed. PMFSH Past Medical History Medical History Dizziness Elevated TSH Essential hypertension [place] Gastro-esophageal reflux disease without esophagitis Hepatitis C virus infection without hepatic coma Hyperthyroidism Parathyroid adenoma Primary hyperthyroidism Prostate CA Pulmonary HTN Thrombocytopenia Thyroid mass Type 2 diabetes mellitus without complications Unspecified atrial fibrillation Surgical History Surgical History H/O parathyroidectomy H/O radical prostatectomy History of bilateral knee replacement History of right shoulder replacement Family History Family History Mother Family history of lung cancer Sibling Lung cancer 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 HEAD: Normocephalic, atraumatic. EYES: PERRLA and EOMI. ENT: Nares clear, no rhinorrhea or epistaxis. Mucous membranes moist. NECK: Supple. CHEST: Clear to auscultation. No respiratory distress. HEART: Regular rate and rhythm. No murmur heard. Normal peripheral pulses. ABDOMEN: Soft, nontender, nondistended, normal active bowel sounds. EXTREMITIES: Normal range of motion. No edema. SKIN: Warm, dry, no rash. NEURO: No focal deficits. Alert and oriented x3. PSYCH: Normal mood and affect. Course Vital Signs Vital signs: Vital Signs Temperature 37.8 C H 08/04/23 20:38 Pulse Rate 74 08/04/23 20:38 Respiratory Rate 20 08/04/23 20:38 Blood Pressure 140/98 H 08/04/23 20:38 Pulse Oximetry 95 08/04/23 20:38 Oxygen Delivery Room Air 08/04/23 20:38 Temperature 37.8 C H 08/05/23 04:06 Pulse Rate 82 08/05/23 04:44 Respiratory Rate 40 H 08/05/23 04:44 Blood Pressure 156/82 H 08/05/23 04:44 Pulse
[2023-08-05] MEDS: ACETAMINOPHEN 500 MG TABLET 1000 MG PO (04:08)
[2023-08-05] MEDS: SODIUM CHLORIDE 0.9% IV 1,000 ML 999 ML IV CONT (04:09)
[2023-08-05] MEDS: PROCHLORPERAZINE EDISYLATE 10 MG/2 ML VIAL IV PUSH (04:10)
[2023-08-05] MEDS: AZITHROMYCIN 500 MG/NS 250 ML 500 MG/250 ML BAG 250 MG IVPB (04:59)
--- NOTE | 2023-08-05 06:50 | ADMGEN ---
This patient, Todd Roe, was admitted to 2 Medical Room 248-. Patient/family oriented to hospital policies and general routines including ID bracelet, bed and alarms, visiting hours, pain management, procedures, bathroom and other care routines, personal items, smoking policy, room service/diet, and visiting hours. Information on how to activate the Rapid Response Team has been discussed. Patient/Family are encouraged to report perceived risks to care and to ask questions if they do not understand what they are told or what they should do.
[2023-08-05 07:52] LABS: Glucose Point of Care 159 mg/dl (65-105)
[2023-08-05] MEDS: LOSARTAN POTASSIUM 100 MG TABLET PO (11:19)
[2023-08-05] MEDS: amLODIPine BESYLATE 5 MG TABLET PO (11:20)
[2023-08-05] MEDS: METOPROLOL SUCCINATE EXT REL 100 MG TABCR PO (11:20)
[2023-08-05] MEDS: OMEGA 3 POLYUNSAT FATTY ACIDS 1 GM CAP PO (11:20)
[2023-08-05] MEDS: FUROSEMIDE 20 MG TABLET PO (11:20)
[2023-08-05] MEDS: hydroCHLOROthiazide 25 MG TABLET PO (11:20)
[2023-08-05] MEDS: POTASSIUM CHLORIDE 20 MEQ PACKET (FOR LIQUID) 40 MEQ PO (11:21)
--- NOTE | 2023-08-05 11:23 | PM.IMHP ---
H&P: HPI History of Present Illness Date/Time: 08/05/23 11:23 Chief Complaint: fever Narrative: Patient is an 82 YO male with PMH of hypertension, type 2 diabetes, chronic AFib on anticoagulation, COPD, hepatitis C with cirrhosis, and previous sepsis without definitive source. He was admitted for low grade fevers starting 2 days prior per his 's report. She is at the bedside to provide additional history. His highest temp at home was yesterday afternoon of 100.1. He has had no other viral symptoms, cough, chest pain, SOB, N/V/ or diarrhea. They recently drove back from visiting [place], and thought maybe the difference in temperature and air caused his symptoms. He has not had any changes in his medications. His legs are slightly more edematous than his normal, although on exam did not appear to be pitting. He has chronic vascular disease. Denies pain on palpation. UA was negative, respiratory panel was negative. CXR showed mild pulmonary edema. CTA was negative for PE but confirmed pneumonia. This afternoon he has spiked temps and become more tachypneic. Small fluid bolus given and ABG showed no hypercapnia. He is now on 6 L O2. Will continue to closely monitor. BC pending with no growth at this point. Review of Systems Review of Systems: All systems reviewed & are unremarkable except as noted in HPI and below PMFSH Past Medical History Medical History Dizziness Elevated TSH Essential hypertension Falls Gastro-esophageal reflux disease without esophagitis Hepatitis C virus infection without hepatic coma Hyperthyroidism Parathyroid adenoma Primary hyperthyroidism Prostate CA Pulmonary HTN Thrombocytopenia Thyroid mass Type 2 diabetes mellitus without complications Unspecified atrial fibrillation Surgical History Surgical History H/O parathyroidectomy H/O radical prostatectomy History of bilateral knee replacement History of right shoulder replacement Family History Family History Mother Family history of lung cancer Sibling No problems noted. 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 Smoking packs per day: 1 Smoking cigarettes per day: 20.0 Years smoked: 10 Smoking pack-years: 10.00 Smoking status: Former smoker Tobacco type: cigarettes Second hand tobacco smoke exposure: No Smoking end date: 08/31/87 Alcohol intake: current Drinks per week: 1 Substance use: never Substance use type: does not use Do You Feel Safe in your Home?: Yes Lack of Transportation: No Lack of Food: Never True Current Housing: I Have Housing Concerned About Future Housing: No Difficulty Paying Gas/Electric Bills: No Difficulty Paying for Meds: No Currently Unemployed: No Education: Grade School Difficulty w/ Childcare or Family Care: No Living arrangements: with family Occupation/Education: retired Gender identity (if verbalized by the patient): Male Sexual Orientation (if Verbalized by the Patient): Straight or Heterosexual Spiritual care concerns: No Meds Home Medications and Allergies Home Medications Medication Instructions Recorded Confirmed Type cholecalciferol (vitamin D3) 50 50 mcg PO DAILY 07/29/20 08/05/23 History mcg (2,000 unit) capsule (Vitamin D3) B-complex with vitamin C 1 cap PO DAILY 10/18/20 08/05/23 History omega-3 fatty acids 1,000 mg 1,000 mg PO DAILY 10/18/20 08/05/23 History capsule (Fish Oil Concentrate) vitamins A,C,F-iksg-bbcgjx 4,296 1 cap PO BID 10/18/20 08/05/23 History mcg-226 mg-90 mg capsule (PreserVision AREDS) warfarin 5 mg tablet 5 mg PO DAILY #90 tabs 01/06/22 08/05/23 Rx losartan 100 1 tablet PO DAILY #90 tabs 06/20/23 08/05/23 Rx mg-hydrochlor
[2023-08-05] MEDS: CHOLECALCIFEROL 1,000 UNITS TABLET 2000 UNITS PO (11:37)
[2023-08-05 11:56] LABS: Glucose Point of Care 161 mg/dl (65-105)
[2023-08-05] MEDS: ACETAMINOPHEN 325 MG TABLET 650 MG PO ×2 (12:03→20:54)
[2023-08-05 12:05] LABS: Alveolar/Arterial O2 Gradient 156.6 mmHg; Base Excess ABG 0.6 mEq/l (+/-2.0); Fractional Inspired Oxygen 36 %; HCO3 ABG 25.5 mEq/l (22.0-26.0); Oxygen Content ABG 18.4 %vol (16.0-22.0); PCO2 ABG 41.9 mmHg (35.0-45.0); PO2 ABG 51.5 mmHg (80.0-100.0); PO2 FiO2 Ratio Arterial Blood 1.43 %; Total Hemoglobin 15.4 g/dL (12.0-18.0); pH ABG 7.402 (7.350-7.450)
[2023-08-05 12:08] LABS: Device NASAL CANNULA; Modified Allen's Test Pass; Oxygen Saturation ABG 86.5 % (95.0-100.0); Oxyhemoglobin 85.2 % THb (90.0-100.0); Site Drawn RIGHT RADIAL
[2023-08-05] MEDS: SODIUM CHLORIDE 0.9% IV 500 ML IV CONT (12:10)
[2023-08-05 12:44] LABS: Hepatitis B Surface Antigen Negative (Negative)
[2023-08-05 12:50] LABS: HAV RESULT Negative (Negative); Hepatitis B Core IgM Result Negative (Negative)
[2023-08-05 13:04] LABS: Hepatitis C Virus Antibody Reactive (Negative)
[2023-08-05] MEDS: IPRATROPIUM 0.5 MG/ALBUTEROL SULFATE 2.5 MG AMPUL.NEB 3 ML INHALATION ×2 (13:28→20:27)
--- NOTE | 2023-08-05 14:58 | PCOTNOTE ---
Attempted OT evaluation at 14:58. Per RN and respiratory, patient's respiratory rate is ranging in the mid 30s. RN and respiratory therapist requested to try again tomorrow once breathing improves. Not appropriate at this time. Will follow.
--- NOTE | 2023-08-05 15:28 | PCPTNOTE ---
attempted PT evaluation ~ 1500: discussed pt with MARQUEZ Ko and respiratory therapist, HOLD PT eval, pt's respiratory rate 35 and they are changing his method of oxygen delivery.
[2023-08-05] MEDS: FUROSEMIDE INJ 40 MG/4 ML VIAL 20 MG IV PUSH (15:33)
[2023-08-05 17:15] LABS: Glucose Point of Care 143 mg/dl (65-105)
[2023-08-05 21:23] LABS: Glucose Point of Care 131 mg/dl (65-105)
[2023-08-06] VITALS (22 sets, daily range): BP systolic 121–131; BP diastolic 64–83; PULSE 74–104; RESP 18–26; TEMP 36.4–37.1; O2SAT 91–99
[2023-08-06] MEDS: IPRATROPIUM 0.5 MG/ALBUTEROL SULFATE 2.5 MG AMPUL.NEB 3 ML INHALATION ×4 (02:08→20:36)
[2023-08-06] MEDS: AZITHROMYCIN 500 MG/NS 250 ML 500 MG/250 ML BAG 250 MG IVPB (05:36)
[2023-08-06 05:39] LABS: Basophils Percent Auto 0.3 % (0.2-1.2); Eosinophils Percent Auto 0.1 % (0-4.4); Hematocrit 43.7 % (42.0-52.0); Hemoglobin 14.2 g/dL (14.0-18.0); Immature Granulocyte Absolute 0.04 K/mm3 (0.00-0.031); Immature Granulocyte Percent A 0.4 % (0-0.5); Lymphocytes Percent Auto 9.9 % (18.3-44.2); Mean Corpuscular HGB Conc 32.5 g/dl (32-36); Mean Corpuscular Hemoglobin 32.3 pg (26-34); Mean Corpuscular Volume 99.3 fl (80-100); Mean Platelet Volume 12.1 fl (7.4-10.4); Monocytes Percent Auto 9.7 % (2.6-8.5); Neutrophils Absolute Auto 8.1 K/mm3 (1.3-6.7); Neutrophils Percent Auto 79.6 % (45.5-73.1); Platelet Count Result 105 k/mm3 (150-375); Red Cell Distribution Width 15.4 % (11.5-14.5); White Blood Count 10.2 K/mm3 (4.5-10.0)
[2023-08-06 05:50] LABS: Partial Thromboplastin Time 46.1 SECONDS (22.3-36.8)
[2023-08-06 05:54] LABS: Anion Gap 8 mmol/L (8-16); Blood Urea Nitrogen 20 mg/dL (9-20); Calcium 8.1 mg/dL (8.4-10.2); Carbon Dioxide 26 mmol/L (22-30); Chloride 102 mmol/L (98-107); Estimated CRCL calculation 92 ml/min; Estimated Glomerular Filt Rate > 60; Glucose 123 mg/dL (65-110); Potassium 3.2 mmol/L (3.4-5.0); Sodium 136 mmol/L (137-145)
[2023-08-06 05:54] LABS: Lactic Acid Reflex 1.3 mmol/L (0.7-2.0)
[2023-08-06 06:01] LABS: D Dimer 0.67 ug/mL (<0.48)
[2023-08-06 08:25] LABS: Glucose Point of Care 130 mg/dl (65-105)
[2023-08-06] MEDS: LOSARTAN POTASSIUM 100 MG TABLET PO (09:40)
[2023-08-06] MEDS: METOPROLOL SUCCINATE EXT REL 100 MG TABCR PO (09:40)
[2023-08-06] MEDS: VITAMIN B COMPLEX/VIT C CAPSULE 1 EACH PO (09:41)
[2023-08-06] MEDS: amLODIPine BESYLATE 5 MG TABLET PO (09:41)
[2023-08-06] MEDS: hydroCHLOROthiazide 25 MG TABLET PO (09:41)
[2023-08-06] MEDS: OPTI-GEN TAB 1 TABLET PO ×2 (09:41→16:27)
[2023-08-06] MEDS: WARFARIN (*PBKC) 5 MG TABLET PO (09:41)
[2023-08-06] MEDS: FUROSEMIDE 20 MG TABLET PO (09:41)
[2023-08-06] MEDS: OMEGA 3 POLYUNSAT FATTY ACIDS 1 GM CAP PO (09:41)
[2023-08-06] MEDS: CHOLECALCIFEROL 1,000 UNITS TABLET 2000 UNITS PO (09:41)
[2023-08-06] MEDS: VANCOMYCIN 1,250 MG/NS 250 ML 1,250 MG/250 ML BAG 166.67 MG IVPB ×2 (09:42→10:47)
[2023-08-06 12:21] LABS: Glucose Point of Care 140 mg/dl (65-105)
--- NOTE | 2023-08-06 14:53 | P.PNIM_ITS ---
Progress Note: A&P Assessment and Plan (1) Left lower lobe pneumonia: Code(s): J18.9 - Pneumonia, unspecified organism Status: Acute Assessment and Plan: * respiratory panel negative * CXR showed cardiomegaly with mild pulmonary edema. * CTA showed no pulmonary embolus identified. Airspace opacities of the lower lobes, left greater than right, consistent with atelectasis versus pneumonia. Cirrhosis. * currently on high flow NC - work to wean with respiratory * neb treatments * BC prelim showing Strep canis * Increase to 2g Rocephin and azithromycin, awaiting sensitivities (2) Essential hypertension: Code(s): I10 - Essential (primary) hypertension Status: Chronic Assessment and Plan: * reviewed and stable * continue home meds (3) Hepatitis C virus infection without hepatic coma: Code(s): B19.20 - Unspecified viral hepatitis C without hepatic coma Status: Chronic Assessment and Plan: * CTA showed cirrhosis * bilirubin elevated to 2.8 * AST/ALT WNL * Hep panel showed hep C AB as expected * PCR pending, but unecessary (4) Diabetes mellitus: Code(s): E11.9 - Type 2 diabetes mellitus without complications Status: Chronic Assessment and Plan: * accuchecks, low dose sliding scale * hypoglycemia protocol (5) Unspecified atrial fibrillation: Code(s): I48.91 - Unspecified atrial fibrillation Status: Chronic Assessment and Plan: * currently rate controlled * continue metoprolol (6) COPD (chronic obstructive pulmonary disease): Code(s): J44.9 - Chronic obstructive pulmonary disease, unspecified Status: Chronic Assessment and Plan: * currently on high flow NC - working to wean * continue duo nebs * Lasix daily * ABG showed pO2 51.5, O2 sat 86.5, pCO2 41.9, PH normal (7) Bacteremia: Code(s): R78.81 - Bacteremia Status: Acute Assessment and Plan: * history of sepsis * WBC 10.5 today, will continue to monitor * BC prelim showing Strep canis * Increase to 2g Rocephin and azithromycin, awaiting sensitivities * repeat BC ordered for am Subjective Date/time seen: 08/06/23 14:53 Interval history: Patient sitting up in chair this am, states he is feeling much better and ready to go home. He is reporting chronic left shoulder pain, he previously had his right shoulder repaired. Will order XR. Repeat BC ordered for am, increased Rocephin to 2 g. D/C Vanc due to prelim culture results and will await sensitivities. His VS have remained stable today, will work to wean with respiratory off high flow oxygen therapy. Continue to monitor repsonse and labs. Review of Systems Review of Systems: All systems reviewed & are unremarkable except as noted in HPI and below Exam Narrative: GENERAL: Well-appearing, well-nourished, and in no acute distress. HEAD: Normocephalic, atraumatic. EYES: PERRLA and EOMI. ENT: Mucous membranes moist. NECK: Supple. CHEST: Lungs clear to auscultation. No respiratory distress. HEART: RRR. No murmur heard. Normal peripheral pulses. ABDOMEN: Soft, nontender, nondistended, normal bowel sounds. EXTREMITIES: Normal range of motion. No edema. SKIN: Warm, dry, no rash. NEURO: No focal deficits. Alert and oriented x3. PSYCH: Normal mood and affect. Objective Data Vital Signs Vital Signs: Vital Signs - 24 hr 08/05/23 15:20 08/05/23 16:00 08/05/23 16:49
--- NOTE | 2023-08-06 14:53 | PM.IMPN ---
Progress Note: A&P Assessment and Plan (1) Left lower lobe pneumonia: Code(s): J18.9 - Pneumonia, unspecified organism Status: Acute Assessment and Plan: respiratory panel negative CXR showed cardiomegaly with mild pulmonary edema. CTA showed no pulmonary embolus identified. Airspace opacities of the lower lobes, left greater than right, consistent with atelectasis versus pneumonia. Cirrhosis. currently on high flow NC - work to wean with respiratory neb treatments BC prelim showing Strep canis Increase to 2g Rocephin and azithromycin, awaiting sensitivities (2) Essential hypertension: Code(s): I10 - Essential (primary) hypertension Status: Chronic Assessment and Plan: reviewed and stable continue home meds (3) Hepatitis C virus infection without hepatic coma: Code(s): B19.20 - Unspecified viral hepatitis C without hepatic coma Status: Chronic Assessment and Plan: CTA showed cirrhosis bilirubin elevated to 2.8 AST/ALT WNL Hep panel showed hep C AB as expected PCR pending, but unecessary (4) Diabetes mellitus: Code(s): E11.9 - Type 2 diabetes mellitus without complications Status: Chronic Assessment and Plan: accuchecks, low dose sliding scale hypoglycemia protocol (5) Unspecified atrial fibrillation: Code(s): I48.91 - Unspecified atrial fibrillation Status: Chronic Assessment and Plan: currently rate controlled continue metoprolol (6) COPD (chronic obstructive pulmonary disease): Code(s): J44.9 - Chronic obstructive pulmonary disease, unspecified Status: Chronic Assessment and Plan: currently on high flow NC - working to wean continue duo nebs Lasix daily ABG showed pO2 51.5, O2 sat 86.5, pCO2 41.9, PH normal (7) Bacteremia: Code(s): R78.81 - Bacteremia Status: Acute Assessment and Plan: history of sepsis WBC 10.5 today, will continue to monitor BC prelim showing Strep canis Increase to 2g Rocephin and azithromycin, awaiting sensitivities repeat BC ordered for am Subjective Date/time seen: 08/06/23 14:53 Interval history: Patient sitting up in chair this am, states he is feeling much better and ready to go home. He is reporting chronic left shoulder pain, he previously had his right shoulder repaired. Will order XR. Repeat BC ordered for am, increased Rocephin to 2 g. D/C Vanc due to prelim culture results and will await sensitivities. His VS have remained stable today, will work to wean with respiratory off high flow oxygen therapy. Continue to monitor repsonse and labs. Review of Systems Review of Systems: All systems reviewed & are unremarkable except as noted in HPI and below Exam Narrative: GENERAL: Well-appearing, well-nourished, and in no acute distress. HEAD: Normocephalic, atraumatic. EYES: PERRLA and EOMI. ENT: Mucous membranes moist. NECK: Supple. CHEST: Lungs clear to auscultation. No respiratory distress. HEART: RRR. No murmur heard. Normal peripheral pulses. ABDOMEN: Soft, nontender, nondistended, normal bowel sounds. EXTREMITIES: Normal range of motion. No edema. SKIN: Warm, dry, no rash. NEURO: No focal deficits. Alert and oriented x3. PSYCH: Normal mood and affect. Objective Data Vital Signs Vital Signs: Vital Signs - 24 hr 08/05/23 15:20 08/05/23 16:00 08/05/23 16:49 Temperature 101.8 F H Pulse Rate 85 73 Respiratory Rate 30 H 36 H Blood Pressure 125/72 Pulse Oximetry 94 95 Oxygen Delivery High Flow Therapy with Na Oxygen Flow Rate 35 Fraction of Inspired Oxygen 30 08/05/23 17:06 08/05/23 20:32 08/05/23 20:32 Temperature 102 F H Pulse Rate 88 85 Respiratory Rate 30 H 28 H Blood Pressure Pulse Oximetry 92 Oxygen Delivery High Flow Therapy with Na Oxygen Flow Rate 35 Fraction of Inspired Oxygen 30 08/05/23 20:40 08/05/23 22:00 08/05/23 20:00 Temperatur
[2023-08-06] MEDS: ACETAMINOPHEN 325 MG TABLET 650 MG PO ×2 (16:25→21:11)
[2023-08-06 16:57] LABS: Glucose Point of Care 111 mg/dl (65-105)
[2023-08-06] MEDS: cefTRIAXone 2 GM/NS 100 ML 2 GM/100 ML BAG IVPB (17:41)
[2023-08-06 20:44] LABS: Glucose Point of Care 141 mg/dl (65-105)
[2023-08-07] VITALS (22 sets, daily range): BP systolic 121–137; BP diastolic 69–78; PULSE 79–106; RESP 17–20; TEMP 36.5–36.9; O2SAT 93–100
[2023-08-07] MEDS: ACETAMINOPHEN 325 MG TABLET 650 MG PO ×2 (01:44→23:00)
[2023-08-07] MEDS: IPRATROPIUM 0.5 MG/ALBUTEROL SULFATE 2.5 MG AMPUL.NEB 3 ML INHALATION ×4 (02:30→20:03)
--- NOTE | 2023-08-07 03:09 | PCRCNOTE ---
RT decreased liter flow on Vapotherm to 20L 32% for patient comfort. He expressed last night that the pressure was too much.
[2023-08-07] MEDS: AZITHROMYCIN 500 MG/NS 250 ML 500 MG/250 ML BAG 250 MG IVPB (04:24)
[2023-08-07 05:42] LABS: Basophils Percent Auto 0.2 % (0.2-1.2); Eosinophils Percent Auto 0.2 % (0-4.4); Hematocrit 42.8 % (42.0-52.0); Hemoglobin 14.1 g/dL (14.0-18.0); Immature Granulocyte Absolute 0.03 K/mm3 (0.00-0.031); Immature Granulocyte Percent A 0.3 % (0-0.5); Lymphocytes Absolute Auto 1.03 K/mm3 (0.9-3.2); Lymphocytes Percent Auto 9.9 % (18.3-44.2); Mean Corpuscular HGB Conc 32.9 g/dl (32-36); Mean Corpuscular Hemoglobin 32.5 pg (26-34); Mean Corpuscular Volume 98.6 fl (80-100); Monocytes Percent Auto 9.6 % (2.6-8.5); Neutrophils Absolute Auto 8.3 K/mm3 (1.3-6.7); Neutrophils Percent Auto 79.8 % (45.5-73.1); Platelet Count Result 102 k/mm3 (150-375); Red Blood Count 4.34 M/mm3 (4.6-6.20); Red Cell Distribution Width 14.9 % (11.5-14.5); White Blood Count 10.4 K/mm3 (4.5-10.0)
[2023-08-07 05:47] LABS: INR 2.3; Prothrombin Time 26.7 Seconds (11.1-14.7)
[2023-08-07 05:56] LABS: Anion Gap 4 mmol/L (8-16); Blood Urea Nitrogen 22 mg/dL (9-20); Calcium 8.2 mg/dL (8.4-10.2); Carbon Dioxide 30 mmol/L (22-30); Chloride 101 mmol/L (98-107); Estimated CRCL calculation 92 ml/min; Estimated Glomerular Filt Rate > 60; Glucose 128 mg/dL (65-110); Potassium 2.8 mmol/L (3.4-5.0); Sodium 135 mmol/L (137-145)
[2023-08-07] MEDS: POTASSIUM CHLORIDE 20 MEQ ER TABLET 60 MEQ PO (06:34)
--- NOTE | 2023-08-07 07:59 | P.PNIM_ITS ---
Progress Note: A&P Assessment and Plan (1) Left lower lobe pneumonia: Code(s): J18.9 - Pneumonia, unspecified organism Status: Acute Assessment and Plan: * respiratory panel negative * CXR showed cardiomegaly with mild pulmonary edema. * CTA showed no pulmonary embolus identified. Airspace opacities of the lower lobes, left greater than right, consistent with atelectasis versus pneumonia. Cirrhosis. * currently on high flow NC 8L * Continue to wean * Continue neb treatments * BC prelim showing Strep canis * New blood cultures drawn today * Continue 2g Rocephin and azithromycin, awaiting sensitivities (2) Essential hypertension: Code(s): I10 - Essential (primary) hypertension Status: Chronic Assessment and Plan: * B/P ranging 121/64-137/71 * continue home meds (3) Hepatitis C virus infection without hepatic coma: Code(s): B19.20 - Unspecified viral hepatitis C without hepatic coma Status: Chronic Assessment and Plan: * CTA showed cirrhosis * bilirubin elevated to 2.8 * AST/ALT WNL * Hep panel showed hep C AB as expected * PCR pending (4) Diabetes mellitus: Code(s): E11.9 - Type 2 diabetes mellitus without complications Status: Chronic Assessment and Plan: * Blood glucose ranging 128-133 * accuchecks ac/hs * Continue low dose sliding scale * hypoglycemia protocol * Last Hgb A1c on 03/08/23 was 6.6 (5) Unspecified atrial fibrillation: Code(s): I48.91 - Unspecified atrial fibrillation Status: Chronic Assessment and Plan: * currently rate controlled * continue metoprolol (6) COPD (chronic obstructive pulmonary disease): Code(s): J44.9 - Chronic obstructive pulmonary disease, unspecified Status: Chronic Assessment and Plan: * currently on high flow NC at 8L - working to wean * continue duo nebs * Lasix daily (7) Bacteremia: Code(s): R78.81 - Bacteremia Status: Acute Assessment and Plan: * history of sepsis * WBC 10.5 today, will continue to monitor * BC prelim showing Strep canis * Increase to 2g Rocephin and azithromycin, awaiting sensitivities * repeat BC ordered for am * Patient has had Group G Streptococcus back in 2020 Time Spent With Patient Time with patient: 25 - 35 minutes Subjective Date/time seen: 08/07/23 07:59 Interval history: This is an 82 year old male who presented to the hospital on 08/05/23 with complaint of a fever. Work up in the hospital included a chest x-ray which shown mild pulmonary edema. Chest/abdomen/pelvis CTA was negative for PE, opacities in bilateral lower lobes, left greater than right, consistent with pneumonia, cirrhosis. 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 Blood cultures ordered and are pending. On examination today patient alert and oriented x3 in chair. VSS, he is afebrile, currently on 8L HFNC. He denies any fever, chills, congestion, cough, shortness of breath, chest pain abdominal pain, nausea, vomiting, diarrhea. Labs today revealed WBC 10.4, Na+ 135, K+ 2.8, BG ranging 128-141, Ca+ 8.2, mag 2.0. Blood cultures from 08/04/2023 is showing Streptococcus canis in 1 out of the 2 vials on preliminary read. Repeat blood cultures sent today and are pending. Continue with IV Rocephin and will switch Azithromycin over to oral today. Review of Systems Review of Systems: All systems reviewed & are unremarkable except as noted in HPI and below Constitutional: Constitutional: Reports as per HPI and R
--- NOTE | 2023-08-07 07:59 | PM.IMPN ---
Progress Note: A&P Assessment and Plan (1) Left lower lobe pneumonia: Code(s): J18.9 - Pneumonia, unspecified organism Status: Acute Assessment and Plan: respiratory panel negative CXR showed cardiomegaly with mild pulmonary edema. CTA showed no pulmonary embolus identified. Airspace opacities of the lower lobes, left greater than right, consistent with atelectasis versus pneumonia. Cirrhosis. currently on high flow NC 8L Continue to wean Continue neb treatments BC prelim showing Strep canis New blood cultures drawn today Continue 2g Rocephin and azithromycin, awaiting sensitivities (2) Essential hypertension: Code(s): I10 - Essential (primary) hypertension Status: Chronic Assessment and Plan: B/P ranging 121/64-137/71 continue home meds (3) Hepatitis C virus infection without hepatic coma: Code(s): B19.20 - Unspecified viral hepatitis C without hepatic coma Status: Chronic Assessment and Plan: CTA showed cirrhosis bilirubin elevated to 2.8 AST/ALT WNL Hep panel showed hep C AB as expected PCR pending (4) Diabetes mellitus: Code(s): E11.9 - Type 2 diabetes mellitus without complications Status: Chronic Assessment and Plan: Blood glucose ranging 128-133 accuchecks ac/hs Continue low dose sliding scale hypoglycemia protocol Last Hgb A1c on 03/08/23 was 6.6 (5) Unspecified atrial fibrillation: Code(s): I48.91 - Unspecified atrial fibrillation Status: Chronic Assessment and Plan: currently rate controlled continue metoprolol (6) COPD (chronic obstructive pulmonary disease): Code(s): J44.9 - Chronic obstructive pulmonary disease, unspecified Status: Chronic Assessment and Plan: currently on high flow NC at 8L - working to wean continue duo nebs Lasix daily (7) Bacteremia: Code(s): R78.81 - Bacteremia Status: Acute Assessment and Plan: history of sepsis WBC 10.5 today, will continue to monitor BC prelim showing Strep canis Increase to 2g Rocephin and azithromycin, awaiting sensitivities repeat BC ordered for am Patient has had Group G Streptococcus back in 2020 Time Spent With Patient Time with patient: 25 - 35 minutes Subjective Date/time seen: 08/07/23 07:59 Interval history: This is an 82 year old male who presented to the hospital on 08/05/23 with complaint of a fever. Work up in the hospital included a chest x-ray which shown mild pulmonary edema. Chest/abdomen/pelvis CTA was negative for PE, opacities in bilateral lower lobes, left greater than right, consistent with pneumonia, cirrhosis. 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 Blood cultures ordered and are pending. On examination today patient alert and oriented x3 in chair. VSS, he is afebrile, currently on 8L HFNC. He denies any fever, chills, congestion, cough, shortness of breath, chest pain abdominal pain, nausea, vomiting, diarrhea. Labs today revealed WBC 10.4, Na+ 135, K+ 2.8, BG ranging 128-141, Ca+ 8.2, mag 2.0. Blood cultures from 08/04/2023 is showing Streptococcus canis in 1 out of the 2 vials on preliminary read. Repeat blood cultures sent today and are pending. Continue with IV Rocephin and will switch Azithromycin over to oral today. Review of Systems Review of Systems: All systems reviewed & are unremarkable except as noted in HPI and below Constitutional: Constitutional: Reports as per HPI and Reports no additional constitutional complaints Eyes: Eyes: Reports as per HPI and Reports no additional eye complaints ENT: Reports system reviewed and no additional complaints, except as documented and Reports as per HPI Cardiovascular: Cardiovascular: Reports as per HPI and Reports no additional cardiovascular complaints Respiratory: Respiratory: Reports as per HPI and Reports no additional respiratory complaints Gastrointesti
[2023-08-07 08:26] LABS: Glucose Point of Care 133 mg/dl (65-105)
[2023-08-07] MEDS: WATER FOR IRRIGATION, STERILE 1,000 ML BOTTLE 1000 ML (08:33)
[2023-08-07] MEDS: hydroCHLOROthiazide 25 MG TABLET PO (08:35)
[2023-08-07] MEDS: OMEGA 3 POLYUNSAT FATTY ACIDS 1 GM CAP PO (08:35)
[2023-08-07] MEDS: METOPROLOL SUCCINATE EXT REL 100 MG TABCR PO (08:35)
[2023-08-07] MEDS: OPTI-GEN TAB 1 TABLET PO ×2 (08:35→17:28)
[2023-08-07] MEDS: amLODIPine BESYLATE 5 MG TABLET PO (08:36)
[2023-08-07] MEDS: FUROSEMIDE 20 MG TABLET PO (08:36)
[2023-08-07] MEDS: VITAMIN B COMPLEX/VIT C CAPSULE 1 EACH PO (08:36)
[2023-08-07] MEDS: LOSARTAN POTASSIUM 100 MG TABLET PO (08:36)
[2023-08-07] MEDS: WARFARIN (*PBKC) 5 MG TABLET PO (08:36)
[2023-08-07] MEDS: CHOLECALCIFEROL 1,000 UNITS TABLET 2000 UNITS PO (08:36)
[2023-08-07 12:08] LABS: Glucose Point of Care 136 mg/dl (65-105)
[2023-08-07] MEDS: POTASSIUM CHLORIDE 20 MEQ ER TABLET 40 MEQ PO (12:11)
[2023-08-07 17:16] LABS: Glucose Point of Care 112 mg/dl (65-105)
[2023-08-07] MEDS: cefTRIAXone 2 GM/NS 100 ML 2 GM/100 ML BAG IVPB (17:28)
[2023-08-07 20:35] LABS: Glucose Point of Care 163 mg/dl (65-105)
[2023-08-08] VITALS (21 sets, daily range): BP systolic 122–135; BP diastolic 75–77; PULSE 74–98; RESP 18; TEMP 36.4–36.8; O2SAT 91–100
[2023-08-08] MEDS: IPRATROPIUM 0.5 MG/ALBUTEROL SULFATE 2.5 MG AMPUL.NEB 3 ML INHALATION ×4 (02:16→20:02)
--- NOTE | 2023-08-08 07:33 | P.PNIM_ITS ---
Progress Note: A&P Assessment and Plan (1) Acute respiratory failure with hypoxia: Code(s): J96.01 - Acute respiratory failure with hypoxia Status: Acute Assessment and Plan: * respiratory panel negative * CXR showed cardiomegaly with mild pulmonary edema. * CTA showed no pulmonary embolus identified. Airspace opacities of the lower lobes, left greater than right, consistent with atelectasis versus pneumonia. Cirrhosis. * currently on high flow NC 3L * Continue to wean for O2 saturation of greater than 92% * Continue neb treatments * First set of blood cultures showing Strep canis in 1 out of 2 vials * New blood cultures are still showing as pending * Continue 2g Rocephin and azithromycin, awaiting sensitivities (2) Left lower lobe pneumonia: Code(s): J18.9 - Pneumonia, unspecified organism Status: Acute Assessment and Plan: * CTA showed no pulmonary embolus identified. Airspace opacities of the lower lobes, left greater than right, consistent with atelectasis versus pneumonia. Cirrhosis. * currently on high flow NC 3L * Continue to wean for O2 saturation of greater than 92% * Continue neb treatments (3) Essential hypertension: Code(s): I10 - Essential (primary) hypertension Status: Chronic Assessment and Plan: * B/P ranging 122/76 to 137/71 * continue home meds (4) Hepatitis C virus infection without hepatic coma: Code(s): B19.20 - Unspecified viral hepatitis C without hepatic coma Status: Chronic Assessment and Plan: * CTA showed cirrhosis * bilirubin elevated down to 1.4 * AST/ALT WNL * Hep panel showed hep C AB as expected * PCR pending (5) Diabetes mellitus: Code(s): E11.9 - Type 2 diabetes mellitus without complications Status: Chronic Assessment and Plan: * Blood glucose ranging 135-139 * accuchecks ac/hs * Continue low dose sliding scale * hypoglycemia protocol * Last Hgb A1c on 03/08/23 was 6.6 (6) Unspecified atrial fibrillation: Code(s): I48.91 - Unspecified atrial fibrillation Status: Chronic Assessment and Plan: * currently rate controlled * continue metoprolol (7) COPD (chronic obstructive pulmonary disease): Code(s): J44.9 - Chronic obstructive pulmonary disease, unspecified Status: Chronic Assessment and Plan: * currently on high flow NC at 4L * working to wean to keep O2 saturation greater than 92% * continue duo nebs * Continue Lasix daily (8) Bacteremia: Code(s): R78.81 - Bacteremia Status: Acute Assessment and Plan: * history of sepsis * WBC 10.5 today, will continue to monitor * BC prelim showing Strep canis in 1 out of 2 vials. * Increase to 2g Rocephin and azithromycin, awaiting sensitivities * repeat BC are showing as pending. * Patient has had Group G Streptococcus back in 2020 Time Spent With Patient Time with patient: 25 - 35 minutes Subjective Date/time seen: 08/08/23 07:33 Interval history: 08/07/23: This is an 82 year old male who presented to the hospital on 08/05/23 with complaint of a fever. Work up in the hospital included a chest x-ray which shown mild pulmonary edema. Chest/abdomen/pelvis CTA was negative for PE, opacities in bilateral lower lobes, left greater than right, consistent with pneumonia, cirrhosis. 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 Blood cultures ordered and are pending. On examination today patient alert and oriented x3 in chair. VSS, he is afebrile, curren
--- NOTE | 2023-08-08 07:33 | PM.IMPN ---
Progress Note: A&P Assessment and Plan (1) Acute respiratory failure with hypoxia: Code(s): J96.01 - Acute respiratory failure with hypoxia Status: Acute Assessment and Plan: respiratory panel negative CXR showed cardiomegaly with mild pulmonary edema. CTA showed no pulmonary embolus identified. Airspace opacities of the lower lobes, left greater than right, consistent with atelectasis versus pneumonia. Cirrhosis. currently on high flow NC 3L Continue to wean for O2 saturation of greater than 92% Continue neb treatments First set of blood cultures showing Strep canis in 1 out of 2 vials New blood cultures are still showing as pending Continue 2g Rocephin and azithromycin, awaiting sensitivities (2) Left lower lobe pneumonia: Code(s): J18.9 - Pneumonia, unspecified organism Status: Acute Assessment and Plan: CTA showed no pulmonary embolus identified. Airspace opacities of the lower lobes, left greater than right, consistent with atelectasis versus pneumonia. Cirrhosis. currently on high flow NC 3L Continue to wean for O2 saturation of greater than 92% Continue neb treatments (3) Essential hypertension: Code(s): I10 - Essential (primary) hypertension Status: Chronic Assessment and Plan: B/P ranging 122/76 to 137/71 continue home meds (4) Hepatitis C virus infection without hepatic coma: Code(s): B19.20 - Unspecified viral hepatitis C without hepatic coma Status: Chronic Assessment and Plan: CTA showed cirrhosis bilirubin elevated down to 1.4 AST/ALT WNL Hep panel showed hep C AB as expected PCR pending (5) Diabetes mellitus: Code(s): E11.9 - Type 2 diabetes mellitus without complications Status: Chronic Assessment and Plan: Blood glucose ranging 135-139 accuchecks ac/hs Continue low dose sliding scale hypoglycemia protocol Last Hgb A1c on 03/08/23 was 6.6 (6) Unspecified atrial fibrillation: Code(s): I48.91 - Unspecified atrial fibrillation Status: Chronic Assessment and Plan: currently rate controlled continue metoprolol (7) COPD (chronic obstructive pulmonary disease): Code(s): J44.9 - Chronic obstructive pulmonary disease, unspecified Status: Chronic Assessment and Plan: currently on high flow NC at 4L working to wean to keep O2 saturation greater than 92% continue duo nebs Continue Lasix daily (8) Bacteremia: Code(s): R78.81 - Bacteremia Status: Acute Assessment and Plan: history of sepsis WBC 10.5 today, will continue to monitor BC prelim showing Strep canis in 1 out of 2 vials. Increase to 2g Rocephin and azithromycin, awaiting sensitivities repeat BC are showing as pending. Patient has had Group G Streptococcus back in 2020 Time Spent With Patient Time with patient: 25 - 35 minutes Subjective Date/time seen: 08/08/23 07:33 Interval history: 08/07/23: This is an 82 year old male who presented to the hospital on 08/05/23 with complaint of a fever. Work up in the hospital included a chest x-ray which shown mild pulmonary edema. Chest/abdomen/pelvis CTA was negative for PE, opacities in bilateral lower lobes, left greater than right, consistent with pneumonia, cirrhosis. 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 Blood cultures ordered and are pending. On examination today patient alert and oriented x3 in chair. VSS, he is afebrile, currently on 8L HFNC. He denies any fever, chills, congestion, cough, shortness of breath, chest pain abdominal pain, nausea, vomiting, diarrhea. Labs today revealed WBC 10.4, Na+ 135, K+ 2.8, BG ranging 128-141, Ca+ 8.2, mag 2.0. Blood cultures from 08/04/2023 is showing Streptococcus canis in 1 out of the 2 vials on preliminary read. Repeat blood cultures sent today and are pending. Continue with IV Rocephin and will switch Azithromycin over
[2023-08-08 08:00] LABS: Basophils Percent Auto 0.1 % (0.2-1.2); Eosinophils Absolute Auto 0.1 K/mm3 (0-0.3); Eosinophils Percent Auto 0.9 % (0-4.4); Hematocrit 40.7 % (42.0-52.0); Hemoglobin 13.1 g/dL (14.0-18.0); Immature Granulocyte Absolute 0.02 K/mm3 (0.00-0.031); Immature Granulocyte Percent A 0.3 % (0-0.5); Immature Platelet Fraction Pct 8.6 % (0.9-11.2); Lymphocytes Absolute Auto 0.78 K/mm3 (0.9-3.2); Lymphocytes Percent Auto 10.3 % (18.3-44.2); Mean Corpuscular HGB Conc 32.2 g/dl (32-36); Mean Corpuscular Hemoglobin 32.3 pg (26-34); Mean Corpuscular Volume 100.2 fl (80-100); Mean Platelet Volume 11.9 fl (7.4-10.4); Monocytes Absolute Auto 0.9 K/mm3 (0.1-0.6); Monocytes Percent Auto 11.5 % (2.6-8.5); Neutrophils Absolute Auto 5.8 K/mm3 (1.3-6.7); Neutrophils Percent Auto 76.9 % (45.5-73.1); Platelet Count Result 117 k/mm3 (150-375); Red Blood Count 4.06 M/mm3 (4.6-6.20); White Blood Count 7.6 K/mm3 (4.5-10.0)
[2023-08-08 08:23] LABS: Alanine Aminotransferase 23 U/L (6-50); Albumin Level 3.6 g/dL (3.5-5.1); Alkaline Phosphatase 81 U/L (38-126); Anion Gap 0 mmol/L (8-16); Aspartate Amino Transferase 35 U/L (17-59); Bilirubin,Total 1.4 mg/dL (0.2-1.3); Blood Urea Nitrogen 20 mg/dL (9-20); Calcium 8.2 mg/dL (8.4-10.2); Carbon Dioxide 34 mmol/L (22-30); Chloride 102 mmol/L (98-107); Estimated CRCL calculation 92 ml/min; Estimated Glomerular Filt Rate > 60; Glucose 135 mg/dL (65-110); Magnesium 2.1 mg/dL (1.6-2.3); Potassium 3.6 mmol/L (3.4-5.0); Sodium 136 mmol/L (137-145)
[2023-08-08 08:37] LABS: Glucose Point of Care 139 mg/dl (65-105)
[2023-08-08] MEDS: OPTI-GEN TAB 1 TABLET PO ×2 (08:43→17:31)
[2023-08-08] MEDS: METOPROLOL SUCCINATE EXT REL 100 MG TABCR PO (08:43)
[2023-08-08] MEDS: amLODIPine BESYLATE 5 MG TABLET PO (08:43)
[2023-08-08] MEDS: FUROSEMIDE 20 MG TABLET PO (08:43)
[2023-08-08] MEDS: VITAMIN B COMPLEX/VIT C CAPSULE 1 EACH PO (08:43)
[2023-08-08] MEDS: OMEGA 3 POLYUNSAT FATTY ACIDS 1 GM CAP PO (08:43)
[2023-08-08] MEDS: AZITHROMYCIN 250 MG TABLET 500 MG PO (08:43)
[2023-08-08] MEDS: CHOLECALCIFEROL 1,000 UNITS TABLET 2000 UNITS PO (08:44)
[2023-08-08] MEDS: LOSARTAN POTASSIUM 100 MG TABLET PO (08:44)
[2023-08-08] MEDS: hydroCHLOROthiazide 25 MG TABLET PO (08:44)
[2023-08-08] MEDS: WARFARIN (*PBKC) 5 MG TABLET PO (08:44)
[2023-08-08] MEDS: ACETAMINOPHEN 325 MG TABLET 650 MG PO ×2 (10:45→22:13)
[2023-08-08 12:11] LABS: Glucose Point of Care 109 mg/dl (65-105)
[2023-08-08 17:24] LABS: Glucose Point of Care 160 mg/dl (65-105)
[2023-08-08] MEDS: AMOXICILLIN 500 MG CAPSULE 1000 MG PO (20:25)
[2023-08-08 21:21] LABS: Glucose Point of Care 141 mg/dl (65-105)
[2023-08-09] VITALS (14 sets, daily range): BP systolic 123–140; BP diastolic 62–69; PULSE 73–97; RESP 14–18; TEMP 36.3–36.5; O2SAT 91–100
[2023-08-09] MEDS: IPRATROPIUM 0.5 MG/ALBUTEROL SULFATE 2.5 MG AMPUL.NEB 3 ML INHALATION ×3 (02:17→13:41)
[2023-08-09] MEDS: AMOXICILLIN 500 MG CAPSULE 1000 MG PO ×2 (05:11→13:46)
[2023-08-09 07:57] LABS: Glucose Point of Care 156 mg/dl (65-105)
[2023-08-09] MEDS: VITAMIN B COMPLEX/VIT C CAPSULE 1 EACH PO (09:57)
[2023-08-09] MEDS: OMEGA 3 POLYUNSAT FATTY ACIDS 1 GM CAP PO (09:57)
[2023-08-09] MEDS: CHOLECALCIFEROL 1,000 UNITS TABLET 2000 UNITS PO (09:57)
[2023-08-09] MEDS: hydroCHLOROthiazide 25 MG TABLET PO (09:58)
[2023-08-09] MEDS: FUROSEMIDE 20 MG TABLET PO (09:58)
[2023-08-09] MEDS: OPTI-GEN TAB 1 TABLET PO (09:58)
[2023-08-09] MEDS: LOSARTAN POTASSIUM 100 MG TABLET PO (09:58)
[2023-08-09] MEDS: amLODIPine BESYLATE 5 MG TABLET PO (09:58)
[2023-08-09] MEDS: METOPROLOL SUCCINATE EXT REL 100 MG TABCR PO (09:58)
[2023-08-09] MEDS: WARFARIN (*PBKC) 5 MG TABLET PO (09:58)
[2023-08-09] MEDS: AZITHROMYCIN 250 MG TABLET 500 MG PO (09:58)
[2023-08-09 10:13] LABS: Hematocrit 40.9 % (42.0-52.0); Hemoglobin 13.4 g/dL (14.0-18.0); Mean Corpuscular HGB Conc 32.8 g/dl (32-36); Mean Corpuscular Hemoglobin 32.1 pg (26-34); Mean Corpuscular Volume 97.8 fl (80-100); Mean Platelet Volume 11.6 fl (7.4-10.4); Platelet Count Result 150 k/mm3 (150-375); Red Blood Count 4.18 M/mm3 (4.6-6.20); Red Cell Distribution Width 14.8 % (11.5-14.5)
[2023-08-09 10:22] LABS: Anion Gap 6 mmol/L (8-16); Blood Urea Nitrogen 15 mg/dL (9-20); Calcium 8.4 mg/dL (8.4-10.2); Carbon Dioxide 30 mmol/L (22-30); Chloride 102 mmol/L (98-107); Estimated CRCL calculation 105 ml/min; Estimated Glomerular Filt Rate > 60; Glucose 156 mg/dL (65-110); Potassium 3.2 mmol/L (3.4-5.0); Sodium 138 mmol/L (137-145)
[2023-08-09 12:04] LABS: Glucose Point of Care 123 mg/dl (65-105)
--- NOTE | 2023-08-09 13:24 | P.PNIM_ITS ---
Progress Note: A&P Assessment and Plan (1) Acute respiratory failure with hypoxia: Code(s): J96.01 - Acute respiratory failure with hypoxia Status: Acute Assessment and Plan: 08/08/23: * respiratory panel negative * CXR showed cardiomegaly with mild pulmonary edema. * CTA showed no pulmonary embolus identified. Airspace opacities of the lower lobes, left greater than right, consistent with atelectasis versus pneumonia. Cirrhosis. * currently on high flow NC 3L * Continue to wean for O2 saturation of greater than 92% * Continue neb treatments * First set of blood cultures showing Strep canis in 1 out of 2 vials * New blood cultures are pending * Continue 2g Rocephin and azithromycin, awaiting sensitivities 08/09/23: * Patient started on Amoxicillin yesterday since sensitivities came back * New blood cultures showing no growth to date on preliminary read. * Currently on 2L NC * Continue to wean O2 for saturation greater than 92% (2) Left lower lobe pneumonia: Code(s): J18.9 - Pneumonia, unspecified organism Status: Acute Assessment and Plan: 08/08/23: * CTA showed no pulmonary embolus identified. Airspace opacities of the lower lobes, left greater than right, consistent with atelectasis versus pneumonia. Cirrhosis. * currently on high flow NC 3L * Continue to wean for O2 saturation of greater than 92% * Continue neb treatments 08/09/23: * Now on 2L NC * Continue to wean O2 * No change to current treatment plan (3) Essential hypertension: Code(s): I10 - Essential (primary) hypertension Status: Chronic Assessment and Plan: * B/P ranging 122/76 to 137/71 * continue home meds (4) Hepatitis C virus infection without hepatic coma: Code(s): B19.20 - Unspecified viral hepatitis C without hepatic coma Status: Chronic Assessment and Plan: 08/08/23: * CTA showed cirrhosis * bilirubin elevated down to 1.4 * AST/ALT WNL * Hep panel showed hep C AB as expected * PCR pending 08/09/23: * no change to current treatment plan (5) Diabetes mellitus: Code(s): E11.9 - Type 2 diabetes mellitus without complications Status: Chronic Assessment and Plan: 08/08/23: * Blood glucose ranging 135-139 * accuchecks ac/hs * Continue low dose sliding scale * hypoglycemia protocol * Last Hgb A1c on 03/08/23 was 6.6 08/09/23: * No change to current treatment plan (6) Unspecified atrial fibrillation: Code(s): I48.91 - Unspecified atrial fibrillation Status: Chronic Assessment and Plan: 08/08/23: * currently rate controlled * continue metoprolol 08/09/23: * no change to current treatment plan (7) COPD (chronic obstructive pulmonary disease): Code(s): J44.9 - Chronic obstructive pulmonary disease, unspecified Status: Chronic Assessment and Plan: 08/08/23: * currently on high flow NC at 3L * working to wean to keep O2 saturation greater than 92% * continue duo nebs * Continue Lasix daily 08/09/23: * on 2L NC * Continue with current treatment plan (8) Bacteremia: Code(s): R78.81 - Bacteremia Status: Acute Assessment and Plan: 08/08/23: * history of sepsis * WBC 10.5 today, will continue to monitor * BC prelim showing Strep canis in 1 out of 2 vials. * Increase to 2g Rocephin and azithromycin, awaiting sensitivities * repeat BC are showing as pending. * Patient has had Group G Streptococcus back in 202008/09/23: * Switched to Amox
--- NOTE | 2023-08-09 13:24 | PM.IMPN ---
Progress Note: A&P Assessment and Plan (1) Acute respiratory failure with hypoxia: Code(s): J96.01 - Acute respiratory failure with hypoxia Status: Acute Assessment and Plan: 08/08/23: respiratory panel negative CXR showed cardiomegaly with mild pulmonary edema. CTA showed no pulmonary embolus identified. Airspace opacities of the lower lobes, left greater than right, consistent with atelectasis versus pneumonia. Cirrhosis. currently on high flow NC 3L Continue to wean for O2 saturation of greater than 92% Continue neb treatments First set of blood cultures showing Strep canis in 1 out of 2 vials New blood cultures are pending Continue 2g Rocephin and azithromycin, awaiting sensitivities 08/09/23: Patient started on Amoxicillin yesterday since sensitivities came back New blood cultures showing no growth to date on preliminary read. Currently on 2L NC Continue to wean O2 for saturation greater than 92% (2) Left lower lobe pneumonia: Code(s): J18.9 - Pneumonia, unspecified organism Status: Acute Assessment and Plan: 08/08/23: CTA showed no pulmonary embolus identified. Airspace opacities of the lower lobes, left greater than right, consistent with atelectasis versus pneumonia. Cirrhosis. currently on high flow NC 3L Continue to wean for O2 saturation of greater than 92% Continue neb treatments 08/09/23: Now on 2L NC Continue to wean O2 No change to current treatment plan (3) Essential hypertension: Code(s): I10 - Essential (primary) hypertension Status: Chronic Assessment and Plan: B/P ranging 122/76 to 137/71 continue home meds (4) Hepatitis C virus infection without hepatic coma: Code(s): B19.20 - Unspecified viral hepatitis C without hepatic coma Status: Chronic Assessment and Plan: 08/08/23: CTA showed cirrhosis bilirubin elevated down to 1.4 AST/ALT WNL Hep panel showed hep C AB as expected PCR pending 08/09/23: no change to current treatment plan (5) Diabetes mellitus: Code(s): E11.9 - Type 2 diabetes mellitus without complications Status: Chronic Assessment and Plan: 08/08/23: Blood glucose ranging 135-139 accuchecks ac/hs Continue low dose sliding scale hypoglycemia protocol Last Hgb A1c on 03/08/23 was 6.6 08/09/23: No change to current treatment plan (6) Unspecified atrial fibrillation: Code(s): I48.91 - Unspecified atrial fibrillation Status: Chronic Assessment and Plan: 08/08/23: currently rate controlled continue metoprolol 08/09/23: no change to current treatment plan (7) COPD (chronic obstructive pulmonary disease): Code(s): J44.9 - Chronic obstructive pulmonary disease, unspecified Status: Chronic Assessment and Plan: 08/08/23: currently on high flow NC at 3L working to wean to keep O2 saturation greater than 92% continue duo nebs Continue Lasix daily 08/09/23: on 2L NC Continue with current treatment plan (8) Bacteremia: Code(s): R78.81 - Bacteremia Status: Acute Assessment and Plan: 08/08/23: history of sepsis WBC 10.5 today, will continue to monitor BC prelim showing Strep canis in 1 out of 2 vials. Increase to 2g Rocephin and azithromycin, awaiting sensitivities repeat BC are showing as pending. Patient has had Group G Streptococcus back in 202008/09/23: Switched to Amoxicillin, finished azithromycin Repeat BC showing no growth on preliminary Time Spent With Patient Time with patient: 25 - 35 minutes Subjective Date/time seen: 08/09/23 13:24 Interval history: 08/07/23: This is an 82 year old male who presented to the hospital on 08/05/23 with complaint of a fever. Work up in the hospital included a chest x-ray which shown mild pulmonary edema. Chest/abdomen/pelvis CTA was negative for PE, opacities in bilateral lower lobes, left greater than right, consistent with pneumonia,
[2023-08-09] MEDS: POTASSIUM CHLORIDE 20 MEQ ER TABLET 40 MEQ PO (13:46)
--- NOTE | 2023-08-09 14:33 | PM.DS ---
DS: Admitting Diagnosis Discharge Date 08/09/23 Admitting Diagnosis Acute respiratory failure with hypoxia Left lower lobe pneumonia Essential hypertension Hepatitis C virus infection without hepatic coma Diabetes mellitus AFib COPD DS: Discharge Diagnosis Discharge Diagnosis (1) Acute respiratory failure with hypoxia: Code(s): J96.01 - Acute respiratory failure with hypoxia Status: Acute (2) Left lower lobe pneumonia: Code(s): J18.9 - Pneumonia, unspecified organism Status: Acute (3) Essential hypertension: Code(s): I10 - Essential (primary) hypertension Status: Chronic (4) Hepatitis C virus infection without hepatic coma: Code(s): B19.20 - Unspecified viral hepatitis C without hepatic coma Status: Chronic (5) Diabetes mellitus: Code(s): E11.9 - Type 2 diabetes mellitus without complications Status: Chronic (6) Unspecified atrial fibrillation: Code(s): I48.91 - Unspecified atrial fibrillation Status: Chronic (7) COPD (chronic obstructive pulmonary disease): Code(s): J44.9 - Chronic obstructive pulmonary disease, unspecified Status: Chronic (8) Bacteremia: Code(s): R78.81 - Bacteremia Status: Acute DS: Summary Hospital Course Reason for hospitalization: Acute respiratory failure with hypoxia Left lower lobe pneumonia Essential hypertension Hepatitis C virus infection without hepatic coma Diabetes mellitus COPD AFib Hospital Course: This is an 82 year old male who presented to the hospital on 08/05/23 with complaint of a fever. Work up in the hospital included a chest x-ray which shown mild pulmonary edema. Chest/abdomen/pelvis CTA was negative for PE, opacities in bilateral lower lobes, left greater than right, consistent with pneumonia, cirrhosis. 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 Blood cultures showing Streptococcus canis in 1 out of the 2 vials on final read. New blood culture showing no growth today. On examination today patient is alert and oriented x3, sitting in the chair. VSS, he is afebrile, he is currently on room air. With an O2 saturation of 100%. Labs today reveal K+ 3.2, otherwise unremarkable. Blood cultures showing no growth to date on preliminary read. He is now on Amoxicillin and will need finish a 5 day course which was called to his pharmacy. He is stable for discharge at this time. He will need to follow up with his primary care physician in 1 week. Final diagnosis: Acute respiratory failure with hypoxia due to left lower lobe pneumonia Status at Discharge Cognitive/behavioral status at discharge: Alert oriented x3 Functional status at discharge: uses cane/walker Overall status at discharge: patient is progressing back to baseline Time Spent with Patient Time attestation: Total time spent providing and/or coordinating discharge services: Time spent: Greater than 30 minutes Exam Narrative: General: In no acute distress, well nourished Head: atraumatic, no encephalopathy Eyes: EOMI, PERRLA, sclera clear ENT: moist mucous membranes, nasal passages clear Neck: supple, no JVD, no adenopathy, trachea midline Cardiac: Normal S1 and S2. No murmur, gallops or friction rubs, peripheral pulses intact. Respiratory: Lungs clear to auscultation, no adventitious lung sounds, currently on room air Gastrointestinal: soft, non-distended, non-tender, normoactive bowel sounds. : voiding without difficulty. Extremities: moves all extremities well, no edema Skin: clean, dry, intact. No wounds or lesions. Neuro: Alert and oriented x4, cranial nerves intact, no neuro deficits. Psych: normal mood, normal affect, interactive DS: Data Data Completed and Pending Completed studies during hospitalization: Chest x-ray Chest/abdomen/pelvis CTA Shoulder x-ray Pending studies at discharge: Blood cultures are still pending Labs on day of discharge: Labs from
--- NOTE | 2023-08-09 14:42 | PCCCNOTE ---
On 08/09/23, the student, [Lynda Tran], provided care and completed [facility] documentation on this patient. I have reviewed the student's documentation and agree with the findings.
[2023-08-12 18:23] LABS: Hepatitis C RNA, Quant PCR <15 IU/mL
== END 2023-08-09 15:25 | disposition home or self-care (01) | DRG 193 ==
LOC: ANHED 08-05 05:39 → ANH2MED 08-05 05:56
PROVIDERS: Nurse Practitioner; Student in an Organized Health Care Education/Training Program; Admitting Provider Internal Medicine; Emergency Provider Emergency Medicine; PCP Family Medicine; Visit Provider Nurse Practitioner Acute Care
DX: J18.9 Pneumonia, unspecified organism (principal); J96.01 Acute respiratory failure with hypoxia; R78.81 Bacteremia; J44.0 Chronic obstructive pulmonary disease with (acute) lower respiratory infection; I48.20 Chronic atrial fibrillation, unspecified; B95.4 Other streptococcus as the cause of diseases classified elsewhere; B19.20 Unspecified viral hepatitis C without hepatic coma; E11.9 Type 2 diabetes mellitus without complications; E03.9 Hypothyroidism, unspecified; I10 Essential (primary) hypertension; J44.9 Chronic obstructive pulmonary disease, unspecified; K21.9 Gastro-esophageal reflux disease without esophagitis; K74.60 Unspecified cirrhosis of liver; M19.012 Primary osteoarthritis, left shoulder; Z85.46 Personal history of malignant neoplasm of prostate; Z90.89 Acquired absence of other organs; Z90.79 Acquired absence of other genital organ(s); Z96.653 Presence of artificial knee joint, bilateral; Z96.611 Presence of right artificial shoulder joint; Z87.891 Personal history of nicotine dependence; Z79.01 Long term (current) use of anticoagulants; Z79.84 Long term (current) use of oral hypoglycemic drugs
CPT/HCPCS: 36415; 36600; 71045; 71275; 73030; 74177; 80048; 80053; 80074; 81001; 82805; 82948; 83605; 83735; 84145; 84484; 85025; 85027; 85055; 85380; 85610; 85730; 87040; 87522; 87637; 94640; 96361; 96365; 96367; 96375; 96376; 97110; 97161; 97166; 97530; 97535; 99285; A9270; G0378; J0456; J0696; J0780; J1940; J3370; J7030; J7040; Q9967

== ENCOUNTER 2023-08-15 11:06 | Inpatient (IN) | payer OTHER, SELFPAY ==
[2023-08-15] VITALS (19 sets, daily range): BP systolic 131–162; BP diastolic 66–88; PULSE 93–113; RESP 18–49; TEMP 36.6–38; O2SAT 90–97; BMI 31.3; BMI 31.5
--- NOTE | ~2023-08-15 | XR_ITS ---
EXAMINATION: XR chest 1V portable DATE: 08/15/2023 12:49 INDICATION: Pneumonia. TECHNIQUE: A single frontal view of the chest was obtained. COMPARISON: Chest single view 08/04/2023, chest CT 08/05/2023 FINDINGS: The patient is rotated to his left. There are airspace opacities in left lower lung zone. N o pleural effusion or pneumothorax. Cardiomegaly is noted. There is a prominent left paracardial fat pad. There is a right shoulder arthroplasty. IMPRESSION: 1. Airspace opacities in left lower lung zone, consistent with atelectasis versus pneumonia. 2. Cardiomegaly. 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 Airspace opacities in left lower lung zone, consistent with atelectasis vers us pneumonia. 2. Cardiomegaly.
[2023-08-15] MEDS: ACETAMINOPHEN 325 MG TABLET 650 MG PO (12:27)
--- NOTE | 2023-08-15 12:37 | ED.FEVER ---
HPI - Fever General Chief Complaint: Fever Stated Complaint: fever Time Seen by Provider: 08/15/23 11:57 History of Present Illness HPI Narrative: Patient is a 82-year-old male who presents to the emergency department this afternoon accompanied by his due to fever. states that patient was recently admitted to our facility and discharged this past after being treated for pneumonia. He was sent home on oral antibiotics which she has finished. states the patient initially was improving but yesterday he slept the whole day and this morning he started to spike a fever again. brought him back as she is concerned that he is going to going to sepsis again as he has been in sepsis 4 times in the past 40 years. states that she was unsure what the cause of the sepsis for 2 or 3 of those occurrences, stating that they did not think it was pneumonia. states that cultures usually grow strep pneumo. also states that he has been more fatigued this morning, more so than he normally is. Patient is currently resting comfortably and is asleep. When woken up he denies any pain. The remainder of the history of present illness review of systems negative unless stated otherwise in HPI. Related Data Home Medications Medication Instructions Recorded Confirmed cholecalciferol (vitamin D3) 50 50 mcg PO DAILY 07/29/20 08/05/23 mcg (2,000 unit) capsule (Vitamin D3) B-complex with vitamin C 1 cap PO DAILY 10/18/20 08/05/23 omega-3 fatty acids 1,000 mg 1,000 mg PO DAILY 10/18/20 08/05/23 capsule (Fish Oil Concentrate) vitamins A,C,G-aprh-lcruir 4,296 1 cap PO BID 10/18/20 08/05/23 mcg-226 mg-90 mg capsule (PreserVision AREDS) furosemide 20 mg tablet 20 mg PO DAILY 08/05/23 08/05/23 metoprolol succinate 100 mg 100 mg PO DAILY 08/05/23 08/05/23 tablet,extended release 24 hr Allergies Allergy/AdvReac Type Severity Reaction Status Date / Time Sulfa (Sulfonamide AdvReac Unknown Vomiting Verified 08/15/23 11:50 Antibiotics) Review of Systems Review of Systems: All systems are reviewed and are negative unless stated otherwise in the HPI. [facility] Past Medical History Medical History Dizziness Elevated TSH Essential hypertension [place] Gastro-esophageal reflux disease without esophagitis Hepatitis C virus infection without hepatic coma Hyperthyroidism Parathyroid adenoma Primary hyperthyroidism Prostate CA Pulmonary HTN Thrombocytopenia Thyroid mass Type 2 diabetes mellitus without complications Unspecified atrial fibrillation Surgical History Surgical History H/O parathyroidectomy H/O radical prostatectomy History of bilateral knee replacement History of right shoulder replacement Family History Family History Mother Family history of lung cancer Sibling No problems noted. 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 Smoking packs per day: 1 Smoking cigarettes per day: 20.0 Years smoked: 10 Smoking pack-years: 10.00 Smoking status: Former smoker Tobacco type: cigarettes Second hand tobacco smoke exposure: No Smoking end date: 08/31/87 Alcohol intake: current Drinks per week: 1 Substance use: never Substance use type: does not use Do You Feel Safe in your Home?: Yes Lack of Transportation: No Lack of Food: Never True Current Housing: I Have Housing Concerned About Future Housing: No Difficulty Paying Gas/Electric Bills: No Difficulty Paying for Meds: No Currently Unemployed: No Education: Grade School Difficulty w/ Childcare or Family Care: No Living arrangements: with family Occupation/Education: retired Gender identity (if verbalized by the patient): Mal
[2023-08-15 12:54] LABS: Basophils Percent Auto 0.4 % (0.2-1.2); Eosinophils Percent Auto 0.3 % (0-4.4); Hemoglobin 13.5 g/dL (14.0-18.0); Immature Granulocyte Absolute 0.02 K/mm3 (0.00-0.031); Immature Granulocyte Percent A 0.3 % (0-0.5); Lymphocytes Absolute Auto 0.47 K/mm3 (0.9-3.2); Lymphocytes Percent Auto 6.2 % (18.3-44.2); Mean Corpuscular HGB Conc 32.9 g/dl (32-36); Mean Corpuscular Hemoglobin 32.5 pg (26-34); Mean Corpuscular Volume 98.6 fl (80-100); Mean Platelet Volume 11.1 fl (7.4-10.4); Monocytes Absolute Auto 1.2 K/mm3 (0.1-0.6); Neutrophils Absolute Auto 5.8 K/mm3 (1.3-6.7); Neutrophils Percent Auto 76.8 % (45.5-73.1); Platelet Count Result 232 k/mm3 (150-375); Red Blood Count 4.16 M/mm3 (4.6-6.20); Red Cell Distribution Width 14.9 % (11.5-14.5); White Blood Count 7.5 K/mm3 (4.5-10.0)
[2023-08-15 13:05] LABS: Alanine Aminotransferase 32 U/L (6-50); Alkaline Phosphatase 99 U/L (38-126); Anion Gap 7 mmol/L (8-16); Aspartate Amino Transferase 34 U/L (17-59); Blood Urea Nitrogen 14 mg/dL (9-20); Calcium 8.8 mg/dL (8.4-10.2); Carbon Dioxide 31 mmol/L (22-30); Chloride 99 mmol/L (98-107); Estimated CRCL calculation 78 ml/min; Estimated Glomerular Filt Rate > 60; Glucose 115 mg/dL (65-110); Potassium 3.6 mmol/L (3.4-5.0); Sodium 137 mmol/L (137-145)
[2023-08-15 13:29] LABS: Lactic Acid Reflex 1.1 mmol/L (0.7-2.0)
[2023-08-15 13:30] LABS: Influenza A QL RT-PCR Negative (Negative); Influenza B QL RT-PCR Negative (Negative); SARS-CoV-2 RNA PCR Positive (Negative)
[2023-08-15] MEDS: levoFLOXacin 750 MG/D5W 150 ML 750 MG/150 ML BAG 100 MG IVPB (14:38)
[2023-08-15 16:41] LABS: Glucose Point of Care 107 mg/dl (65-105)
--- NOTE | 2023-08-15 17:01 | PM.IMHP ---
H&P: HPI History of Present Illness Date/Time: 08/15/23 17:01 Chief Complaint: Fever Narrative: 82 y/o M presents here with fever with PMH of recent PNA, HTN, GERD, Hep C, hyperthyroidism, prostate cx, pulmHTN, thrombocytopenia, DM2, and AFib. Patient was recently admitted on 08/05/23 for fever and subjective swelling to BLE. Found to have bilateral lower lobe PNA (L greater than R). Initial BCs grew streptococcus canis in 1/2 sets. Repeat BCs showed no growth in 2/2. Patient was initially treated with ceftriaxone and azithromycin. He was transitioned to PO amoxicillin x5 days at discharge on 08/09. Per , patient completed course of atb. Presented back to ED today from home for recurrent fevers. Reports onset of fever and fatigue yesterday. Patient has history of sepsis with bacteremia growing strep pneumo per , unclear etiologies for 2/3 and third due to PNA. Denying chest pain, SOB, cough, dizziness, chills, or body aches. No complaints. No subjective fevers but febrile at arrival. HPI obtained through patient interview, patient's 's report, and chart review. Initial VS at presentation: 100.4 F, HR 113, RR 36, 155/87, 92% on RA. ED workup showed no leukocytosis, hemoglobin 13.5, creatinine 0.8, and lactic acid 1.1. +COVID. CXR showed airspace opacities in the left lower lung zone and cardiomegaly. Review of Systems Review of Systems: All systems reviewed & are unremarkable except as noted in HPI and below PMFSH Past Medical History Medical History Dizziness Elevated TSH Essential hypertension [place] Gastro-esophageal reflux disease without esophagitis Hepatitis C virus infection without hepatic coma Hyperthyroidism Parathyroid adenoma Primary hyperthyroidism Prostate CA Pulmonary HTN Thrombocytopenia Thyroid mass Type 2 diabetes mellitus without complications Unspecified atrial fibrillation Surgical History Surgical History H/O parathyroidectomy H/O radical prostatectomy History of bilateral knee replacement History of right shoulder replacement Family History Family History Mother Family history of lung cancer Sibling No problems noted. 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 Smoking packs per day: 1 Smoking cigarettes per day: 20.0 Years smoked: 10 Smoking pack-years: 10.00 Smoking status: Former smoker Second hand tobacco smoke exposure: No Alcohol intake: current Drinks per week: 1 Substance use: never Substance use type: does not use Do You Feel Safe in your Home?: Yes Lack of Transportation: No Lack of Food: Never True Current Housing: I Have Housing Concerned About Future Housing: No Difficulty Paying Gas/Electric Bills: No Difficulty Paying for Meds: No Currently Unemployed: No Education: Grade School Difficulty w/ Childcare or Family Care: No Living arrangements: with family Occupation/Education: retired Gender identity (if verbalized by the patient): Male Sexual Orientation (if Verbalized by the Patient): Straight or Heterosexual Spiritual care concerns: No Meds Home Medications and Allergies Home Medications Medication Instructions Recorded Confirmed Type cholecalciferol (vitamin D3) 50 50 mcg PO DAILY 07/29/20 08/15/23 History mcg (2,000 unit) capsule (Vitamin D3) B-complex with vitamin C 1 cap PO DAILY 10/18/20 08/15/23 History omega-3 fatty acids 1,000 mg 1,000 mg PO DAILY 10/18/20 08/15/23 History capsule (Fish Oil Concentrate) vitamins A,C,A-knlo-fgtdwb 4,296 1 cap PO BID 10/18/20 08/15/23 History mcg-226 mg-90 mg capsule (PreserVision AREDS) warfarin 5 mg tablet 5 mg PO DAILY #90 tabs 01/06/22 08/15/23 Rx losartan 100 1 tablet
[2023-08-15] MEDS: ACETAMINOPHEN 500 MG TABLET PO (18:19)
[2023-08-15] MEDS: LACTATED RINGERS 1,000 ML 100 ML IV CONT (18:20)
[2023-08-15] MEDS: OPTI-GEN TAB 1 TABLET PO (18:20)
[2023-08-15] MEDS: dexAMETHasone 2 MG TABLET 6 MG PO (18:20)
[2023-08-15] MEDS: REMDESIVIR 200 MG/NS 250 ML 200 MG/250 ML BAG 250 MG IVPB (18:30)
[2023-08-15 19:23] LABS: INR 1.8; Prothrombin Time 21.9 Seconds (11.1-14.7)
--- NOTE | 2023-08-15 19:43 | ADMGEN ---
This patient, Todd Roe, was admitted to [address] [facility] Surg Room 304-02. Patient/family oriented to hospital policies and general routines including ID bracelet, bed and alarms, visiting hours, pain management, procedures, bathroom and other care routines, personal items, smoking policy, room service/diet, and visiting hours. Information on how to activate the Rapid Response Team has been discussed. Patient/Family are encouraged to report perceived risks to care and to ask questions if they do not understand what they are told or what they should do.
[2023-08-15] MEDS: WARFARIN (*PBKC) 5 MG TABLET PO (20:49)
[2023-08-16 01:17] LABS: Glucose Point of Care 162 mg/dl (65-105)
[2023-08-16 06:00] VITALS: BP 118/72; PULSE 91; RESP 20; TEMP 36.3; O2SAT 98
[2023-08-16 06:09] LABS: Basophils Percent Auto 0.2 % (0.2-1.2); Hematocrit 43.1 % (42.0-52.0); Hemoglobin 13.9 g/dL (14.0-18.0); Immature Granulocyte Absolute 0.01 K/mm3 (0.00-0.031); Immature Granulocyte Percent A 0.2 % (0-0.5); Lymphocytes Percent Auto 11.4 % (18.3-44.2); Mean Corpuscular HGB Conc 32.3 g/dl (32-36); Mean Corpuscular Hemoglobin 32.2 pg (26-34); Mean Corpuscular Volume 99.8 fl (80-100); Monocytes Absolute Auto 0.2 K/mm3 (0.1-0.6); Monocytes Percent Auto 2.9 % (2.6-8.5); Neutrophils Absolute Auto 4.5 K/mm3 (1.3-6.7); Neutrophils Percent Auto 85.3 % (45.5-73.1); Platelet Count Result 225 k/mm3 (150-375); Red Blood Count 4.32 M/mm3 (4.6-6.20); Red Cell Distribution Width 14.7 % (11.5-14.5); White Blood Count 5.3 K/mm3 (4.5-10.0)
[2023-08-16 06:27] LABS: Alanine Aminotransferase 32 U/L (6-50); Albumin Level 3.9 g/dL (3.5-5.1); Alkaline Phosphatase 94 U/L (38-126); Anion Gap 7 mmol/L (8-16); Aspartate Amino Transferase 38 U/L (17-59); Bilirubin,Total 1.5 mg/dL (0.2-1.3); Blood Urea Nitrogen 18 mg/dL (9-20); CRP 3.6 mg/dL (<1.0); Calcium 8.7 mg/dL (8.4-10.2); Carbon Dioxide 29 mmol/L (22-30); Chloride 102 mmol/L (98-107); Estimated CRCL calculation 76 ml/min; Estimated Glomerular Filt Rate > 60; Glucose 146 mg/dL (65-110); Magnesium 1.8 mg/dL (1.6-2.3); Potassium 3.8 mmol/L (3.4-5.0); Sodium 138 mmol/L (137-145)
[2023-08-16 06:51] LABS: Erythrocyte Sedimentation Rate 18 mm/hr (0-20)
[2023-08-16 08:12] LABS: Glucose Point of Care 129 mg/dl (65-105)
--- NOTE | 2023-08-16 09:45 | PM.IMPN ---
Progress Note: A&P Assessment and Plan (1) Sepsis: Qualifiers: Sepsis acute organ dysfunction status: without acute organ dysfunction Sepsis type: sepsis due to unspecified organism Qualified Code(s): A41.9 - Sepsis, unspecified organism Code(s): A41.9 - Sepsis, unspecified organism Status: Acute Assessment and Plan: - meets SIRS criteria: HR, RR, and fever. No leukocytosis or lactic acidosis. - blood cultures pending - CXR: Airspace opacities in left lower lung zone, consistent with atelectasis versus pneumonia. Cardiomegaly. - UA w/reflex ordered - COVID+ - due to recent admission for PNA w/atb course - starting treatment for HAP - O2 sats borderline low, monitor closely - may need supplemental O2 (2) COVID: Code(s): U07.1 - COVID-19 Status: Acute Assessment and Plan: - Symptom onset - 08/14/23 - tested positive for COVID on - 08/15/23 - complicating comorbidities - PNA - CXR: Airspace opacities in left lower lung zone, consistent with atelectasis versus pneumonia. Cardiomegaly. - Remdesivir 200 mg IVPB x1 then 100 mg x4 for 5 total doses. - given borderline low O2 sat and recent PNA/current PNA will add dexamethasone 6 mg x10 days or until d/c. - continue home Warfarin - supportive care nebs - albuterol/atrovent Q6H PRN TYL prn for fever/pain zofran prn lozenge prn tessalon perles prn - monitor VS/O2 - monitor daily labs, add ESR/CRP for AM labs (3) Left lower lobe pneumonia: Qualifiers: Pneumonia type: due to unspecified organism Qualified Code(s): J18.9 - Pneumonia, unspecified organism Code(s): J18.9 - Pneumonia, unspecified organism Status: Acute Assessment and Plan: - CXR consistent with L lower lobe PNA, recently treated for bacterial PNA. Finished PO amoxicillin course. 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 may need to be titrated. - A1C 6.6% on 03/08/23 (5) Unspecified atrial fibrillation: Qualifiers: Atrial fibrillation type: unspecified Qualified Code(s): I48.91 - Unspecified atrial fibrillation Code(s): I48.91 - Unspecified atrial fibrillation Status: Chronic Assessment and Plan: - continue home metoprolol, warfarin - EKG, initial showed AFib and age indeterminant inferior infarct (6) Essential hypertension: Code(s): I10 - Essential (primary) hypertension Status: Chronic Assessment and Plan: - chronic, currently controlled - continue amlodipine, hydrochlorothiazide, losartan, Lasix - monitor Plan Patient here with left lower lobe pneumonia and COVID positive. Meet SIRS criteria. Started on Levaquin for treatment of HAP. Diet: Diabetic GI Prophylaxis: Continue home famotidine DVT Prophylaxis: Continue home warfarin Lines: pIV Code Status: Full Code Subjective Date/time seen: 08/16/23 0945 Interval history: 2 y/o M presents here with fever with PMH of recent PNA, HTN, GERD, Hep C, hyperthyroidism, prostate cx, pulmHTN, thrombocytopenia, DM2, and AFib. Patient was recently admitted on 08/05/23 for fever and subjective swelling to BLE. Found to have bilateral lower lobe PNA (L greater than R). Initial BCs grew streptococcus canis in 1/2 sets. Repeat BCs showed no growth in 2/2. Patient was initially treated with ceftriaxone and azithromycin. He was transitioned to P
[2023-08-16] MEDS: CHOLECALCIFEROL 1,000 UNITS TABLET 2000 UNITS PO (10:15)
[2023-08-16] MEDS: FUROSEMIDE 20 MG TABLET PO (10:15)
[2023-08-16] MEDS: OMEGA 3 POLYUNSAT FATTY ACIDS 1 GM CAP PO (10:15)
[2023-08-16] MEDS: dexAMETHasone 2 MG TABLET 6 MG PO (10:15)
[2023-08-16] MEDS: amLODIPine BESYLATE 5 MG TABLET PO (10:15)
[2023-08-16 10:16] VITALS: PULSE 87
[2023-08-16] MEDS: OPTI-GEN TAB 1 TABLET PO ×2 (10:16→16:14)
[2023-08-16] MEDS: VITAMIN B COMPLEX/VIT C CAPSULE 1 EACH PO (10:16)
[2023-08-16] MEDS: FAMOTIDINE 20 MG TABLET PO (10:16)
[2023-08-16] MEDS: hydroCHLOROthiazide 25 MG TABLET PO (10:16)
[2023-08-16] MEDS: METOPROLOL SUCCINATE EXT REL 100 MG TABCR PO (10:16)
[2023-08-16] MEDS: LOSARTAN POTASSIUM 100 MG TABLET PO (10:16)
[2023-08-16 11:02] LABS: Appearance Urine Clear (Clear); Bacteria Urine None Seen /hpf; Bilirubin Urine Negative (Negative); Blood Urine Negative (Negative); Color Urine Dark Yellow (Yellow); Glucose Urine UA Negative (Negative); Ketones Urine Trace mg/dL (Negative); Leukocyte Esterase Ur Negative LEU/UL (Negative); Nitrate Urine Negative (Negative); Non Pathogenic Casts 0-2; Protein Urine 1+ mg/dL (Negative); RBC Urine 0-2 /hpf (0-2); Specific Grav Ur 1.021 (1.001-1.035); Squamous Epithelial Cell Urine None seen /hpf (Few); Urobilinogen Urine 0.2 mg/dL (<2.0); WBC Urine 0-5 /hpf
[2023-08-16 11:04] LABS: Add Urine Microscopic? YES
[2023-08-16 12:15] LABS: Glucose Point of Care 147 mg/dl (65-105)
[2023-08-16 14:00] VITALS: BP 121/72; PULSE 74; RESP 26; TEMP 36.3; O2SAT 95
[2023-08-16] MEDS: levoFLOXacin 750 MG/D5W 150 ML 750 MG/150 ML BAG 100 MG IVPB (16:13)
[2023-08-16] MEDS: WARFARIN (*PBKC) 5 MG TABLET PO (16:13)
[2023-08-16 17:06] LABS: Glucose Point of Care 146 mg/dl (65-105)
[2023-08-16 21:12] LABS: Glucose Point of Care 148 mg/dl (65-105)
[2023-08-16 21:31] VITALS: BP 115/75; PULSE 71; RESP 14; TEMP 36.2; O2SAT 95
[2023-08-16] MEDS: REMDESIVIR 100 MG/NS 250 ML 100 MG/250 ML BAG 250 MG IVPB (21:44)
[2023-08-17 05:58] VITALS: BP 121/73; PULSE 90; RESP 12; TEMP 36.2; O2SAT 96
[2023-08-17 07:04] LABS: Basophils Percent Auto 0.1 % (0.2-1.2); Hematocrit 43.1 % (42.0-52.0); Immature Granulocyte Absolute 0.06 K/mm3 (0.00-0.031); Immature Granulocyte Percent A 0.5 % (0-0.5); Lymphocytes Absolute Auto 0.77 K/mm3 (0.9-3.2); Lymphocytes Percent Auto 6.9 % (18.3-44.2); Mean Corpuscular HGB Conc 32.5 g/dl (32-36); Mean Corpuscular Hemoglobin 31.6 pg (26-34); Mean Corpuscular Volume 97.3 fl (80-100); Mean Platelet Volume 10.9 fl (7.4-10.4); Monocytes Absolute Auto 0.9 K/mm3 (0.1-0.6); Neutrophils Absolute Auto 9.4 K/mm3 (1.3-6.7); Neutrophils Percent Auto 84.5 % (45.5-73.1); Platelet Count Result 253 k/mm3 (150-375); Red Blood Count 4.43 M/mm3 (4.6-6.20); Red Cell Distribution Width 14.7 % (11.5-14.5); White Blood Count 11.1 K/mm3 (4.5-10.0)
[2023-08-17 07:18] LABS: Alanine Aminotransferase 32 U/L (6-50); Albumin Level 3.8 g/dL (3.5-5.1); Alkaline Phosphatase 85 U/L (38-126); Anion Gap 5 mmol/L (8-16); Aspartate Amino Transferase 43 U/L (17-59); Bilirubin,Total 1.2 mg/dL (0.2-1.3); Blood Urea Nitrogen 28 mg/dL (9-20); Calcium 8.8 mg/dL (8.4-10.2); Carbon Dioxide 31 mmol/L (22-30); Chloride 102 mmol/L (98-107); Estimated CRCL calculation 86 ml/min; Estimated Glomerular Filt Rate > 60; Glucose 119 mg/dL (65-110); Potassium 3.9 mmol/L (3.4-5.0); Sodium 138 mmol/L (137-145)
[2023-08-17 07:53] LABS: Glucose Point of Care 105 mg/dl (65-105)
[2023-08-17] MEDS: METOPROLOL SUCCINATE EXT REL 100 MG TABCR PO (09:10)
[2023-08-17] MEDS: FUROSEMIDE 20 MG TABLET PO (09:10)
[2023-08-17] MEDS: dexAMETHasone 2 MG TABLET 6 MG PO (09:10)
[2023-08-17] MEDS: FAMOTIDINE 20 MG TABLET PO (09:10)
[2023-08-17] MEDS: hydroCHLOROthiazide 25 MG TABLET PO (09:10)
[2023-08-17] MEDS: OMEGA 3 POLYUNSAT FATTY ACIDS 1 GM CAP PO (09:10)
[2023-08-17] MEDS: OPTI-GEN TAB 1 TABLET PO ×2 (09:10→17:00)
[2023-08-17] MEDS: LOSARTAN POTASSIUM 100 MG TABLET PO (09:10)
[2023-08-17] MEDS: CHOLECALCIFEROL 1,000 UNITS TABLET 2000 UNITS PO (09:10)
[2023-08-17] MEDS: amLODIPine BESYLATE 5 MG TABLET PO (09:11)
[2023-08-17] MEDS: VITAMIN B COMPLEX/VIT C CAPSULE 1 EACH PO (09:11)
[2023-08-17 11:34] LABS: Glucose Point of Care 106 mg/dl (65-105)
--- NOTE | 2023-08-17 12:20 | PM.IMPN ---
Progress Note: A&P Assessment and Plan (1) Sepsis: Qualifiers: Sepsis acute organ dysfunction status: without acute organ dysfunction Sepsis type: sepsis due to unspecified organism Qualified Code(s): A41.9 - Sepsis, unspecified organism Code(s): A41.9 - Sepsis, unspecified organism Status: Resolved Assessment and Plan: - meets SIRS criteria: HR, RR, and fever. No leukocytosis or lactic acidosis. - blood cultures preliminary report with no growth - CXR: Airspace opacities in left lower lung zone, consistent with atelectasis versus pneumonia. Cardiomegaly. - UA w/reflex ordered - COVID+ - due to recent admission for PNA w/atb course - starting treatment for HAP (2) COVID: Code(s): U07.1 - COVID-19 Status: Acute Assessment and Plan: - Symptom onset - 08/14/23 - tested positive for COVID on - 08/15/23 - complicating comorbidities - PNA - CXR: Airspace opacities in left lower lung zone, consistent with atelectasis versus pneumonia. Cardiomegaly. - Remdesivir 200 mg IVPB x1 then 100 mg x4 for 5 total doses. - given borderline low O2 sat and recent PNA/current PNA will add dexamethasone 6 mg x10 days or until d/c. - continue home Warfarin - supportive care nebs - albuterol/atrovent Q6H PRN TYL prn for fever/pain zofran prn lozenge prn Tessalon perles prn - monitor VS/O2 - monitor daily labs, add ESR/CRP for AM labs 08/17/2023 - continue treatment plan above (3) Left lower lobe pneumonia: Qualifiers: Pneumonia type: due to unspecified organism Qualified Code(s): J18.9 - Pneumonia, unspecified organism Code(s): J18.9 - Pneumonia, unspecified organism Status: Acute Assessment and Plan: - CXR consistent with L lower lobe PNA, recently treated for bacterial PNA. Finished PO amoxicillin course. - start tx for HAP - Levaquin 750 Q24H - DuoNebs PRN 08/17/2023: -consult to Infectious Disease pharmacist, will DC Levaquin at this time -start azithromycin p.o. for 3 doses, 1st dose given today -DC dexamethasone -start amoxicillin/clavulanate 875 p.o. 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 may need to be titrated. - A1C 6.6% on 03/08/23 08/17/2023: -continue plan above (5) Unspecified atrial fibrillation: Qualifiers: Atrial fibrillation type: unspecified Qualified Code(s): I48.91 - Unspecified atrial fibrillation Code(s): I48.91 - Unspecified atrial fibrillation Status: Chronic Assessment and Plan: - continue home metoprolol, warfarin - EKG, initial showed AFib and age indeterminant inferior infarct 08/17/2023 -continue plan above (6) Essential hypertension: Code(s): I10 - Essential (primary) hypertension Status: Chronic Assessment and Plan: - chronic, currently controlled - continue amlodipine, hydrochlorothiazide, losartan, Lasix - monitor vitals q.4 hours (7) Leukocytosis: Code(s): D72.829 - Elevated white blood cell count, unspecified Status: Acute Assessment and Plan: Acute, suspect etiology from recent steroid administration -deescalation of steroids, pharmacy consulted -repeat CBC, CMP in the a.m. Plan Diet: Diabetic GI Prophylaxis: Continue home famotidine DVT Prophylaxis: Continue home warfarin Lines: pIV Code Status: Full Code Subjective Date/time seen: 08/17/23 12:20 Interval history: 2 y/o
[2023-08-17 14:00] VITALS: BP 109/73; PULSE 69; RESP 13; TEMP 36.2; O2SAT 96
[2023-08-17] MEDS: AZITHROMYCIN 250 MG TABLET 500 MG PO (14:54)
[2023-08-17] MEDS: AMOXICILLIN/CLAVULANATE K 875-125 MG TAB 1 TABLET PO ×2 (14:55→21:38)
[2023-08-17 16:22] LABS: Glucose Point of Care 138 mg/dl (65-105)
[2023-08-17] MEDS: WARFARIN (*PBKC) 5 MG TABLET PO (17:00)
[2023-08-17 21:26] LABS: Glucose Point of Care 162 mg/dl (65-105)
[2023-08-17] MEDS: REMDESIVIR 100 MG/NS 250 ML 100 MG/250 ML BAG 250 MG IVPB (21:37)
[2023-08-17 21:43] VITALS: BP 127/80; PULSE 71; RESP 13; TEMP 36.1; O2SAT 96
[2023-08-18 05:38] VITALS: BP 148/85; PULSE 60; RESP 13; TEMP 36.1; O2SAT 99
[2023-08-18 06:44] LABS: Basophils Percent Auto 0.1 % (0.2-1.2); Hematocrit 44.5 % (42.0-52.0); Hemoglobin 14.4 g/dL (14.0-18.0); Immature Granulocyte Absolute 0.04 K/mm3 (0.00-0.031); Immature Granulocyte Percent A 0.4 % (0-0.5); Lymphocytes Absolute Auto 0.88 K/mm3 (0.9-3.2); Lymphocytes Percent Auto 8.2 % (18.3-44.2); Mean Corpuscular HGB Conc 32.4 g/dl (32-36); Mean Corpuscular Hemoglobin 32.2 pg (26-34); Mean Corpuscular Volume 99.6 fl (80-100); Monocytes Absolute Auto 0.5 K/mm3 (0.1-0.6); Monocytes Percent Auto 4.7 % (2.6-8.5); Neutrophils Absolute Auto 9.3 K/mm3 (1.3-6.7); Neutrophils Percent Auto 86.6 % (45.5-73.1); Platelet Count Result 246 k/mm3 (150-375); Red Blood Count 4.47 M/mm3 (4.6-6.20); Red Cell Distribution Width 14.8 % (11.5-14.5); White Blood Count 10.7 K/mm3 (4.5-10.0)
[2023-08-18 06:54] LABS: Anion Gap 6 mmol/L (8-16); Blood Urea Nitrogen 30 mg/dL (9-20); Calcium 8.8 mg/dL (8.4-10.2); Carbon Dioxide 33 mmol/L (22-30); Chloride 100 mmol/L (98-107); Estimated CRCL calculation 68 ml/min; Estimated Glomerular Filt Rate > 60; Glucose 128 mg/dL (65-110); Potassium 4.2 mmol/L (3.4-5.0); Sodium 139 mmol/L (137-145)
[2023-08-18 07:49] LABS: Glucose Point of Care 120 mg/dl (65-105)
[2023-08-18 09:11] VITALS: PULSE 68
[2023-08-18] MEDS: METOPROLOL SUCCINATE EXT REL 100 MG TABCR PO (09:11)
[2023-08-18] MEDS: FUROSEMIDE 20 MG TABLET PO (09:11)
[2023-08-18] MEDS: OMEGA 3 POLYUNSAT FATTY ACIDS 1 GM CAP PO (09:11)
[2023-08-18] MEDS: OPTI-GEN TAB 1 TABLET PO (09:13)
[2023-08-18] MEDS: amLODIPine BESYLATE 5 MG TABLET PO (09:13)
[2023-08-18] MEDS: LOSARTAN POTASSIUM 100 MG TABLET PO (09:13)
[2023-08-18] MEDS: hydroCHLOROthiazide 25 MG TABLET PO (09:13)
[2023-08-18] MEDS: AMOXICILLIN/CLAVULANATE K 875-125 MG TAB 1 TABLET PO (09:13)
[2023-08-18] MEDS: CHOLECALCIFEROL 1,000 UNITS TABLET 2000 UNITS PO (09:13)
[2023-08-18] MEDS: FAMOTIDINE 20 MG TABLET PO (09:13)
[2023-08-18] MEDS: VITAMIN B COMPLEX/VIT C CAPSULE 1 EACH PO (09:14)
[2023-08-18] MEDS: REMDESIVIR 100 MG/NS 250 ML 100 MG/250 ML BAG 250 MG IVPB (11:06)
[2023-08-18 11:43] LABS: Glucose Point of Care 128 mg/dl (65-105)
--- NOTE | 2023-08-18 11:51 | PM.DS ---
DS: Admitting Diagnosis Discharge Date 08/18/2023 Admitting Diagnosis COVID PNA DS: Discharge Diagnosis Discharge Diagnosis (1) Leukocytosis: Qualifiers: Leukocytosis type: unspecified Qualified Code(s): D72.829 - Elevated white blood cell count, unspecified Code(s): D72.829 - Elevated white blood cell count, unspecified Status: Acute Assessment and Plan: Elevation likely secondary to use of steroids (2) COVID: Code(s): U07.1 - COVID-19 Status: Acute Assessment and Plan: -patient not requiring oxygen -patient received 4 doses IV remdesivir (3) Acute respiratory failure with hypoxia: Code(s): J96.01 - Acute respiratory failure with hypoxia Status: Resolved Assessment and Plan: -acute respiratory failure with hypoxia resolved, patient on RA (4) COPD (chronic obstructive pulmonary disease): Code(s): J44.9 - Chronic obstructive pulmonary disease, unspecified Status: Chronic Assessment and Plan: Not in exacerbation (5) Left lower lobe pneumonia: Qualifiers: Pneumonia type: due to unspecified organism Qualified Code(s): J18.9 - Pneumonia, unspecified organism Code(s): J18.9 - Pneumonia, unspecified organism Status: Acute Assessment and Plan: As evidenced by CXR. 1.Airspace opacities in left lower lung zone, consistent with atelectasis versus pneumonia. 2. Cardiomegaly -preliminary blood cultures initially with no growth to date, final result pending -continue azithromycin 500 mg p.o. daily for 2 more doses to be given at home -continue amoxicillin clavulanate a potassium p.o. q.12 hours,for two more days (6) Edema of both legs: Code(s): R60.0 - Localized edema Status: Acute Assessment and Plan: Dependent edema secondary -discussed with patient elevate both legs (7) Essential hypertension: Code(s): I10 - Essential (primary) hypertension Status: Chronic Assessment and Plan: -continue home medication amlodipine 5 mg p.o. daily -continue home medication losartan potassium 100 mg p.o. daily -continue hydrochlorothiazide 25 mg p.o. daily (8) Unspecified atrial fibrillation: Qualifiers: Atrial fibrillation type: unspecified Qualified Code(s): I48.91 - Unspecified atrial fibrillation Code(s): I48.91 - Unspecified atrial fibrillation Status: Chronic Assessment and Plan: -continue home medication warfarin sodium 5 mg p.o. daily (9) Diabetes mellitus: Qualifiers: Diabetes mellitus complication status: without complication Diabetes mellitus shelter insulin use: without shelter use Diabetes mellitus type: type 2 Qualified Code(s): E11.9 - Type 2 diabetes mellitus without complications Code(s): E11.9 - Type 2 diabetes mellitus without complications Status: Chronic Assessment and Plan: -continue home insulin aspart DS: Summary Hospital Course Hospital Course: Subjective Date/time seen: 08/17/23? 12:20 Interval history: 82 y/o M presents here with fever with PMH of recent PNA, HTN, GERD, Hep C, hyperthyroidism, prostate cx, pulmHTN, thrombocytopenia, DM2, and AFib. Patient was recently admitted on 08/05/23 for fever and subjective swelling to BLE. Found to have bilateral lower lobe PNA (L greater than R). Initial BCs grew streptococcus canis in 1/2 sets. Repeat BCs showed no growth in 2/2. Patient was initially treated with ceftriaxone and azithromycin. He was transitioned to PO amoxicillin x5 days at discharge on 08/09. Per , patient completed course of atb. Presented back to ED today from home for recurrent fevers. Reports onset of fever and fatigue yesterday. Patient has history of sepsis with bacteremia growing strep pneumo per , unclear etiologies for 2/3 and third due to PNA. Denying chest pain, SOB, cough, dizziness, chills, or body aches. No complaints. No subjective fevers but fe
[2023-08-18 14:00] VITALS: BP 123/79; PULSE 67; RESP 20; TEMP 36.4; O2SAT 95
[2023-08-18] MEDS: AZITHROMYCIN 250 MG TABLET 500 MG PO (15:07)
[2023-08-18 17:10] LABS: Alanine Aminotransferase 48 U/L (6-50); Albumin Level 3.8 g/dL (3.5-5.1); Alkaline Phosphatase 86 U/L (38-126); Aspartate Amino Transferase 58 U/L (17-59); Bilirubin,Total 1.1 mg/dL (0.2-1.3)
[2023-08-20 06:26] LABS: Legionella pneumophila Ag Ur Not Detected (Not Detected)
== END 2023-08-18 17:15 | disposition home or self-care (01) | DRG 177 ==
LOC: ANHED 14:28 → ANH3MEDSUR 15:24
PROVIDERS: Student in an Organized Health Care Education/Training Program; Admitting Provider Internal Medicine; Emergency Provider Emergency Medicine; PCP Family Medicine; Visit Provider Nurse Practitioner
DX: U07.1 COVID-19 (principal); A41.9 Sepsis, unspecified organism; J18.9 Pneumonia, unspecified organism; I48.20 Chronic atrial fibrillation, unspecified; J44.0 Chronic obstructive pulmonary disease with (acute) lower respiratory infection; I10 Essential (primary) hypertension; I27.20 Pulmonary hypertension, unspecified; E05.90 Thyrotoxicosis, unspecified without thyrotoxic crisis or storm; E11.9 Type 2 diabetes mellitus without complications; D69.6 Thrombocytopenia, unspecified; K21.9 Gastro-esophageal reflux disease without esophagitis; Z96.653 Presence of artificial knee joint, bilateral; Z96.611 Presence of right artificial shoulder joint; Z85.46 Personal history of malignant neoplasm of prostate; Z87.891 Personal history of nicotine dependence; R60.0 Localized edema
CPT/HCPCS: 36415; 71045; 80048; 80053; 80076; 81001; 82948; 83605; 83735; 85025; 85610; 85652; 86140; 87040; 87449; 87636; 99285; A9270; J0248; J1956; J7120; J8540